=== PATIENT | female | born 1935 | race Caucasian/White ===

== ENCOUNTER → 2017-05-30 | Outpatient (REF) | payer MEDICARE ==
[~2017-05-30] MED LIST: /LOR25TA PO; /MOM400 PO; ACET650T12 PO; ALPR0.25 PO; ALPR2TAB3 PO; AMLO5TAB2 PO; B-12100T2 SL; CYMB1CAP PO; DOCU10ELUD PO; DULO1CAP2 PO; FLEXERIL PO; GABA-279 PO; HYDR-3716 PO; HYDR12CA PO; HYDR7.5T30 PO; IBUP200C10 PO; LIDO5DIS TOP; LIDO5DIS41 TD; LIDO5TD TD; LORTTAB5 PO; NAPR375T2 PO; NEUR300C PO; OMEP20CA3 PO; OMEP20TA PO; OXYC5TAB2 PO; PAXI10TA12 PO; PAXI20TA29 PO; PERC2.5T PO; PERCOCET PO; PREG100CA PO; PRIL20CA9 PO; SENO8.6T5 PO; TIZA4CAP PO; TIZA4CAP3 PO; TYLE650T30 PO; ULTR37.54 PO; ULTR50TA PO; VITA100037 PO; VITA100067 PO; VITA100L SL; VITA500T53 PO; VOLT1GEL15 TD; ZANA4CAP PO; tylen
== END ==
LOC: M LAB REF 09:13
PROVIDERS: ATTEND Physician Assistant
DX: N39.0 Urinary tract infection, site not specified (principal)

== ENCOUNTER → 2017-05-30 | Outpatient (CLI) | payer MEDICARE ==
[2017-05-30 20:47] LABS: BASO % 0.2 % (0.0-1.0); EOS % 0.4 % (0.0-3.0); LARGE UNSTAINED CELL # 0.1 K/mm3 (0.0-0.4); LARGE UNSTAINED CELL % 0.7 % (0.0-4.0); LYMPH % 12.1 % (24.0-44.0); MEAN CORPUSCULAR HEMOGLOBIN 32.1 pg (27.0-33.0); MEAN CORPUSCULAR HGB CONC 33.5 g/dl (32.0-36.5); MEAN CORPUSCULAR VOLUME 95.7 fl (80.0-96.0); MONO # 0.4 K/mm3 (0.0-0.8); MONO % 4.6 % (0.0-5.0); NEUTROPHILS # 6.2 K/mm3 (1.8-7.7); PLATELET COUNT, AUTOMATED 175 k/mm3 (150-450); RED CELL DISTRIBUTION WIDTH 12.6 % (11.5-14.5); WHITE BLOOD COUNT 7.5 K/mm3 (4.0-10.0)
[2017-05-30 21:04] LABS: ALBUMIN 3.7 GM/DL (3.2-5.2); ALBUMIN/GLOBULIN RATIO 1.06 (1.00-1.93); ALKALINE PHOSPHATASE 79 U/L (45-117); ALT/SGPT 16 U/L (12-78); ANION GAP 5 MEQ/L (8-16); AST/SGOT 9 U/L (15-37); BILIRUBIN,TOTAL 0.5 MG/DL (0.2-1.0); BLOOD UREA NITROGEN 13 MG/DL (7-18); CALCIUM LEVEL 8.8 MG/DL (8.8-10.2); CARBON DIOXIDE LEVEL 31 MEQ/L (21-32); CHLORIDE LEVEL 101 MEQ/L (98-107); CREATININE FOR GFR 0.79 MG/DL (0.55-1.02); GLOMERULAR FILTRATION RATE > 60.0 (>32); GLUCOSE, FASTING 113 MG/DL (83-110); POTASSIUM SERUM 4.4 MEQ/L (3.5-5.1); SODIUM LEVEL 137 MEQ/L (136-145); TOTAL PROTEIN 7.2 GM/DL (6.4-8.2)
== END ==
LOC: M WUC 18:50
PROVIDERS: ATTEND Physician Assistant
DX: N39.0 Urinary tract infection, site not specified (principal); R11.0 Nausea

== ENCOUNTER → 2017-05-31 | Outpatient (REF) | payer MEDICARE | LOC: M LAB REF 16:33 | PROVIDERS: ATTEND Nurse Practitioner Family | DX: N39.0 Urinary tract infection, site not specified (principal) ==

== ENCOUNTER → 2017-12-16 | Outpatient (CLI) | payer MEDICARE ==
[2017-12-16 16:48] LABS: BASO % 0.3 % (0.0-1.0); EOS # 0.1 10^3/uL (0.0-0.50); EOS % 0.6 % (0.0-3.0); HEMATOCRIT 43.8 % (36.0-47.0); HEMOGLOBIN 14.4 g/dl (12.0-16.0); IMMATURE GRANULOCYTE % 0.4 % (0-3.0); LYMPH # 1.4 10^3/uL (1.5-4.5); LYMPH % 17.5 % (24.0-44.0); MEAN CORPUSCULAR HEMOGLOBIN 31.6 pg (27.0-33.0); MEAN CORPUSCULAR HGB CONC 32.9 g/dl (32.0-36.5); MEAN CORPUSCULAR VOLUME 96.1 fl (80.0-96.0); MONO # 0.7 10^3/uL (0.0-0.8); MONO % 8.3 % (0.0-5.0); NEUTROPHILS # 5.7 10^3/uL (1.8-7.7); NEUTROPHILS % 72.9 % (36.0-66.0); PLATELET COUNT, AUTOMATED 183 10^3/uL (150-450); RED BLOOD COUNT 4.56 10^6/uL (4.00-5.40); RED CELL DISTRIBUTION WIDTH 12.5 % (11.5-14.5); WHITE BLOOD COUNT 7.9 10^3/uL (4.0-10.0)
[2017-12-16 17:11] LABS: ALBUMIN 3.9 GM/DL (3.2-5.2); ALBUMIN/GLOBULIN RATIO 1.08 (1.00-1.93); ALKALINE PHOSPHATASE 80 U/L (45-117); ALT/SGPT 12 U/L (12-78); AMYLASE 36 U/L (25-115); ANION GAP 9 MEQ/L (8-16); AST/SGOT 9 U/L (7-37); BILIRUBIN,TOTAL 0.5 MG/DL (0.2-1.0); BLOOD UREA NITROGEN 20 MG/DL (7-18); CALCIUM LEVEL 8.9 MG/DL (8.8-10.2); CARBON DIOXIDE LEVEL 28 MEQ/L (21-32); CHLORIDE LEVEL 102 MEQ/L (98-107); CREATININE FOR GFR 0.73 MG/DL (0.55-1.30); GLOMERULAR FILTRATION RATE > 60.0 (>32); GLUCOSE, FASTING 91 MG/DL (70-100); LIPASE 59 U/L (73-393); POTASSIUM SERUM 4.1 MEQ/L (3.5-5.1); SODIUM LEVEL 139 MEQ/L (136-145); TOTAL PROTEIN 7.5 GM/DL (6.4-8.2)
== END ==
LOC: M WUC 13:47
DX: R10.815 Periumbilic abdominal tenderness (principal)
CPT/HCPCS: 82150

== ENCOUNTER → 2017-12-20 | Outpatient (CLI) | payer MEDICARE ==
[~2017-12-20] MED LIST changes: -/LOR25TA PO; -/MOM400 PO; -ACET650T12 PO; -ALPR0.25 PO; -ALPR2TAB3 PO; -AMLO5TAB2 PO; -B-12100T2 SL; -CYMB1CAP PO; -DOCU10ELUD PO; -DULO1CAP2 PO; -FLEXERIL PO; -GABA-279 PO; +GASTROGRAFIN SOLUTION 30ML (Q9963) As Ordered; -HYDR-3716 PO; -HYDR12CA PO; -HYDR7.5T30 PO; -IBUP200C10 PO; +ISOVUE-370 76% 100ML VIAL (Q9967) As Ordered; -LIDO5DIS TOP; -LIDO5DIS41 TD; -LIDO5TD TD; -LORTTAB5 PO; -NAPR375T2 PO; -NEUR300C PO; -OMEP20CA3 PO; -OMEP20TA PO; -OXYC5TAB2 PO; -PAXI10TA12 PO; -PAXI20TA29 PO; -PERC2.5T PO; -PERCOCET PO; -PREG100CA PO; -PRIL20CA9 PO; -SENO8.6T5 PO; -TIZA4CAP PO; -TIZA4CAP3 PO; -TYLE650T30 PO; -ULTR37.54 PO; -ULTR50TA PO; -VITA100037 PO; -VITA100067 PO; -VITA100L SL; -VITA500T53 PO; -VOLT1GEL15 TD; -ZANA4CAP PO; -tylen
== END ==
LOC: M RAD 14:07
DX: R10.815 Periumbilic abdominal tenderness (principal); K57.30 Diverticulosis of large intestine without perforation or abscess without bleeding
CPT/HCPCS: Q9963

== ENCOUNTER → 2018-01-05 | Outpatient (CLI) | payer MEDICARE ==
[~2018-01-05] MED LIST changes: -GASTROGRAFIN SOLUTION 30ML (Q9963) As Ordered
== END ==
LOC: M RAD 07:52
DX: I73.9 Peripheral vascular disease, unspecified (principal)
CPT/HCPCS: Q9967

== ENCOUNTER → 2018-09-09 | Outpatient (CLI) | payer MEDICARE | LOC: M WUC 12:54 | DX: M53.88 Other specified dorsopathies, sacral and sacrococcygeal region (principal); M47.817 Spondylosis without myelopathy or radiculopathy, lumbosacral region; M16.11 Unilateral primary osteoarthritis, right hip; S30.0XXA Contusion of lower back and pelvis, initial encounter; S70.01XA Contusion of right hip, initial encounter; X58.XXXA Exposure to other specified factors, initial encounter; Y92.9 Unspecified place or not applicable | CPT/HCPCS: 72110 ==

== ENCOUNTER → 2019-01-30 | Outpatient (REF) | payer MEDICARE ==
[~2019-01-30] MED LIST changes: +/LOR25TA PO; +ACET650T12 PO; +ALPR0.25 PO; +ALPR2TAB3 PO; +AMLO5TAB2 PO; +AMLO5TAB6 PO; +B-12100T2 SL; +CYMB1CAP PO; +DOCU5LIQ PO; +DULO1CAP2 PO; +FLEXERIL PO; +GABA-1171 PO; +HYDR-3716 PO; +HYDR12CA PO; +HYDR7.5T30 PO; +IBUP200C25 PO; -ISOVUE-370 76% 100ML VIAL (Q9967) As Ordered; +LIDO5DIS TOP; +LIDO5DIS41 TD; +LIDO5TD TD; +LORTTAB5 PO; +MILK10SU PO; +NAPR375T2 PO; +NEUR300C PO; +OMEP20CA3 PO; +OMEP20TA PO; +OXYC5TAB2 PO; +PAXI10TA12 PO; +PAXI20TA29 PO; +PERC2.5T PO; +PERCOCET PO; +PREG100CA PO; +PRIL20CA9 PO; +SENO8.6T5 PO; +TIZA4CAP PO; +TYLE650T30 PO; +ULTR37.54 PO; +ULTR50TA PO; +VITA100037 PO; +VITA100067 PO; +VITA100L SL; +VITA500T17 PO; +VOLT1GEL15 TD; +ZANA4CAP PO; +tylen
== END ==
LOC: M LAB REF 11:27
PROVIDERS: ATTEND Physician Assistant
DX: N30.01 Acute cystitis with hematuria (principal)

== ENCOUNTER → 2019-08-12 | Outpatient (REF) | payer MEDICARE ==
[~2019-08-12] MED LIST changes: +ASPI81TA85 PO; +ATOR1TAB19 PO; +BUSP10TA PO; +CVS400CA PO; +DICY10CA13 PO; -DULO1CAP2 PO; +DULO1CAP5 PO; +NITR100C2 PO; +OLME5TAB PO; +OMEP-358 PO; -OMEP20TA PO; +RANI150T14
== END ==
LOC: M LAB REF 13:11
PROVIDERS: ATTEND Physician Assistant
DX: N39.0 Urinary tract infection, site not specified (principal)

== ENCOUNTER 2019-08-14 06:36 | Inpatient (IN) | payer MEDICARE ==
[~2019-08-14] VITALS: Ht 165.1 cm; Wt 91.8 kg
[~2019-08-14 06:36] MED LIST changes: -ASPI81TA85 PO; -ATOR1TAB19 PO; -BUSP10TA PO; -CVS400CA PO; -DICY10CA13 PO; -NITR100C2 PO; -OLME5TAB PO; -RANI150T14
[2019-08-14] MEDS ORDERED: NS 500 ML IV ONE (07:45)
[2019-08-14] MEDS ORDERED: ACETAMINOPHEN 325 MG TAB PO ONE (07:45)
[2019-08-14] MEDS ORDERED: LIDOCAINE 2% 5ML JELLY UROJET TOP ONE (08:00)
[2019-08-14 08:40] LABS: INFLUENZA A AMPLIFICATION NEGATIVE (NEGATIVE); INFLUENZA B AMPLIFICATION NEGATIVE (NEGATIVE)
--- NOTE | 2019-08-14 08:45 | REP ---
CHEST, SINGLE VIEW: Single view of the chest was performed. Comparison 12/05/2017. There is slight interstitial prominence which is chronic. No acute infiltrate is seen. The heart is normal in size. There is calcification of the thoracic aorta. The mediastinal silhouette is unchanged. There are degenerative changes of the spine. Metallic fixation is again seen in the lower cervical spine. IMPRESSION: No acute infiltrate. Electronically Signed by Cuco Bedolla MD 08/15/2019 11:39 A
[2019-08-14 08:55] LABS: BASO % 0.2 % (0.0-1.0); EOS # 0.3 10^3/uL (0.0-0.5); EOS % 1.5 % (0.0-3.0); HEMATOCRIT 40.5 % (36.0-47.0); HEMOGLOBIN 13.3 g/dl (12.0-15.5); LYMPH # 0.8 10^3/uL (1.5-5.0); LYMPH % 4.2 % (24.0-44.0); MEAN CORPUSCULAR HEMOGLOBIN 33.1 pg (27.0-33.0); MEAN CORPUSCULAR HGB CONC 32.8 g/dl (32.0-36.5); MEAN CORPUSCULAR VOLUME 100.7 fl (80.0-96.0); MONO # 1.2 10^3/uL (0.0-0.8); MONO % 6.4 % (0.0-5.0); NEUTROPHILS # 16.7 10^3/uL (1.5-8.5); NEUTROPHILS % 87.1 % (36.0-66.0); PLATELET COUNT, AUTOMATED 156 10^3/uL (150-450); RED BLOOD COUNT 4.02 10^6/uL (4.00-5.40); WHITE BLOOD COUNT 19.2 10^3/uL (4.0-10.0)
[2019-08-14] MEDS ORDERED: NITR100C2 PO (09:16)
[2019-08-14] MEDS ORDERED: OLME5TAB PO (09:16)
[2019-08-14] MEDS ORDERED: ATOR1TAB19 PO (09:16)
[2019-08-14] MEDS ORDERED: RANI150T14 (09:16)
[2019-08-14] MEDS ORDERED: DICY10CA13 PO (09:16)
[2019-08-14] MEDS ORDERED: BUSP10TA PO (09:16)
[2019-08-14] MEDS ORDERED: ASPI81TA85 PO (09:16)
[2019-08-14] MEDS ORDERED: CVS400CA PO (09:16)
[2019-08-14 09:24] LABS: ALBUMIN 3.5 GM/DL (3.2-5.2); ALT/SGPT 11 U/L (12-78); BILIRUBIN,DIRECT 0.2 MG/DL (0.0-0.2); BILIRUBIN,TOTAL 0.6 MG/DL (0.2-1.0); BLOOD UREA NITROGEN 16 MG/DL (7-18); CALCIUM LEVEL 8.9 MG/DL (8.8-10.2); CARBON DIOXIDE LEVEL 28 MEQ/L (21-32); CHLORIDE LEVEL 106 MEQ/L (98-107); CK-MB VALUE MASS < 1.0 NG/ML (<3.6); CPK CREATINE PHOSPHOKINASE 35 U/L (26-192); GLOMERULAR FILTRATION RATE > 60.0 (>32); GLUCOSE, FASTING 119 MG/DL (70-100); LIPASE 31 U/L (73-393); MB/CK RELATIVE INDEX 2.86 (< OR =4); SODIUM LEVEL 140 MEQ/L (136-145); TOTAL PROTEIN 7.1 GM/DL (6.4-8.2); TROPONIN I < 0.02 NG/ML (< 0.10)
[2019-08-14] MEDS ORDERED: MEROPENEM INJ 1 GM in IV 1 EA IV ONE (09:30)
[2019-08-14] MEDS ORDERED: ISOVUE-370 76% 100ML VIAL (Q9967) As Ordered ONE (09:41)
--- NOTE | 2019-08-14 10:29 | ECGEPIP ---
[facility] - ED Test Date: 2019-08-14 Pat Name: GABINO RUEDA Department: Room: - Gender: Female Clinical Resource Director: : 1935 Requested By: Reese Wallace Order Number: [id number] Reading MD: Lili Wells Measurements Intervals [place] Rate: 105 P: -69 MD: 157 QRS: 77 QRSD: 89 T: -51 QT: 317 QTc: 420 Interpretive Statements ECTOPIC ATRIAL TACHYCARDIA WITH OCCASIONAL SUPRAVENTRICULAR PREMATURE COMPLEXES ST DEVIATION AND MODERATE T-WAVE ABNORMALITY, CONSIDER ISCHEMIA Electronically Signed on 08-14-2019 10:28:45 EDT by Lili Wells
--- NOTE | 2019-08-14 10:41 | REP ---
CT ABDOMEN AND PELVIS WITH IV CONTRAST: TECHNIQUE: Axial contrast enhanced images from the lung bases to the pubic symphysis using 100 mL Isovue 370 intravenous contrast material with multiplanar reformations. Liver, spleen, adrenals, pancreas and kidneys are unremarkable. There is no hydronephrosis. The patient has had a prior cholecystectomy. There is not significant biliary dilatation. There is moderate atherosclerotic calcification of the abdominal aorta without aneurysm. There is no adenopathy. There is no free air or free fluid. There is no bowel wall thickening. The appendix is normal. There is mild sigmoid diverticulosis without acute diverticulitis. No pelvic mass is seen. Urinary bladder is not well distended and not well evaluated. There is a small umbilical hernia containing fat. IMPRESSION: No acute abnormality is detected. Electronically Signed by Cuco Bedolla MD 08/15/2019 11:43 A
--- NOTE | 2019-08-14 10:58 | REP ---
CT ANGIOGRAM CHEST: TECHNIQUE: Axial contrast enhanced images from the thoracic inlet to the upper abdomen using 100 mL Isovue 370 intravenous contrast material with multiplanar reformations. There is no evidence of pulmonary embolism or aortic dissection. Moderate atherosclerotic calcifications are seen of the thoracic aorta, which is not dilated. There is no evidence of mediastinal, hilar, or chest wall lymphadenopathy. Heart is normal in size. There is no pleural or pericardial effusion. There are mild bibasilar fibroatelectatic changes without consolidating infiltrate. There are diffuse degenerative changes of the spine. IMPRESSION: Mild bibasilar fibroatelectatic changes. No other acute finding. Electronically Signed by Cuco Bedolla MD 08/15/2019 11:45 A
[2019-08-14] MEDS ORDERED: NS 1,000 ML IV ONE (11:00)
[2019-08-14] MEDS ORDERED: MOM 30ML SUSPENSION UDC PO PRN (11:45)
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
[2019-08-14 15:44] VITALS: BP 136/66
[2019-08-14] MEDS: HEPARIN SOD (PORCINE) 5000 UNITS/ML VIAL SC SCH ×2 (18:40→22:17)
[2019-08-14] MEDS: DOCUSATE SODIUM 100 MG CAP PO SCH ×2 (18:40→22:17)
[2019-08-14] MEDS: MEROPENEM INJ 1 GM in IV 1 EA IV SCH (18:41)
[2019-08-14 22:00] VITALS: BP 144/89
[2019-08-14] MEDS: ACETAMINOPHEN TAB 650MG DOSE (2X325MG) PO PRN (22:21)
--- NOTE | 2019-08-15 00:53 | ECGEPIP ---
[facility] - ED Test Date: 2019-08-14 Pat Name: GABINO RUEDA Department: Room: - Gender: Female Buttermaker: TC : 1935 Requested By: Reese Wallace Order Number: [id number] Reading MD: Murali Gonzalez Measurements Intervals [place] Rate: 68 P: 91 DE: 240 QRS: 73 QRSD: 87 T: 68 QT: 380 QTc: 406 Interpretive Statements SINUS RHYTHM WITH SINUS ARRHYTHMIA LEFT ATRIAL ENLARGEMENT NSTTW ABNORMALITIES RATE CHANGE COMPARED TO 08/14/19 Electronically Signed on 08-15-2019 0:52:42 EDT by Murali Gonzalez
[2019-08-15] MEDS: HEPARIN SOD (PORCINE) 5000 UNITS/ML VIAL SC SCH ×3 (05:41→21:10)
[2019-08-15] MEDS: MEROPENEM INJ 1 GM in IV 1 EA IV SCH ×2 (05:41→18:25)
[2019-08-15 06:00] VITALS: BP 140/93
[2019-08-15 07:00] LABS: ALBUMIN 2.7 GM/DL (3.2-5.2); ALT/SGPT 14 U/L (12-78); BILIRUBIN,TOTAL 0.2 MG/DL (0.2-1.0); BLOOD UREA NITROGEN 16 MG/DL (7-18); CALCIUM LEVEL 8.5 MG/DL (8.8-10.2); CARBON DIOXIDE LEVEL 28 MEQ/L (21-32); CHLORIDE LEVEL 108 MEQ/L (98-107); CREATININE FOR GFR 0.81 MG/DL (0.55-1.30); GLOMERULAR FILTRATION RATE > 60.0 (>32); GLUCOSE, FASTING 128 MG/DL (70-100); POTASSIUM SERUM 4.1 MEQ/L (3.5-5.1); SODIUM LEVEL 140 MEQ/L (136-145); TOTAL PROTEIN 6.4 GM/DL (6.4-8.2)
[2019-08-15] MEDS: busPIRone 10 MG TAB PO SCH ×4 (09:00→21:10)
[2019-08-15] MEDS ORDERED: ALPR2TAB3 PO (10:29)
[2019-08-15] MEDS: DOCUSATE SODIUM 100 MG CAP PO SCH ×2 (10:54→21:10)
[2019-08-15] MEDS: ATORVASTATIN 10 MG TAB PO SCH (10:54)
[2019-08-15] MEDS: CYANOCOBALAMIN 500 MCG TAB PO SCH (10:54)
--- NOTE | 2019-08-15 12:08 | IPNPDOC ---
Text Note Date of Service The patient was seen on 08/15/19. NOTE Patient seen and examined this morning by me. Family at the bedside. No new complaints. GEN: 79yoF, appears stated age. Well-nourished, well developed. Emotionally labile on exam. Alert and oriented x 3. Pleasant, interactive. HEENT: Normocephalic, atraumatic. Pupils are equal, round, and reactive to light. Extraocular movements are intact. No nystagmus appreciated. Sclera are nonicteric. Conjunctiva without injection. Nose midline. Moist mucous membranes. Upper dentures in place. Pharynx pink and moist, no cobblestoning. Neck supple, trachea midline. CHEST: Regular rate and rhythm, +S1, +S2 LUNGS: Clear to auscultation bilaterally. No wheezes, rales, or rhonchi. B reathing appears symmetric and easy. Patient is speaking in full sentences. ABD: Round, soft, non-tender, non-distended. +Bowel sounds throughout. No rebound or guarding. No costovertebral angle tenderness. Slight suprapubic tenderness EXT: Pulses 2+ bilaterally dorsalis pedis and radial. Right distal lower extremity obviously larger than left. Patient notes this is a chronic condition from a remote injury. She denies any change in this. There is no erythema, calor, or calf tenderness bilaterally. SKIN: [place], dry, warm. Capillary refill <2sec. No rashes. NEURO: Alert and oriented x 3. Sensation intact and equal BL in upper and lower extremities. Strength is 3/5 bilaterally in lower extremities. Exam is limited by pain. Cranial nerves III through XII are grossly intact. Assessment and plan 79-year-old female with a past medical history significant for Lumbar radiculopathy, Lumbar spinal stenosis, Depression, Anxiety, HTN presenting with fatigue and possible UTI 1. UTI. The patient does have some suprapubic tenderness and still complains of some dysuria. Though the UA is positive, but she has been on antibiotics. We'll continue her on meropenem . Urine culture has been ordered. Blood cultures are also has been ordered. There is slight WBC elevation along with tachycardia . We will continue IV fluids normal saline at [address] scan of the abdomen, pelvis and chest was done which did not show any acute pathology. 2. Hypertension. Continue with Norvasc with hold parameters. 3. Anxiety/depression. Continue with Paxil and as needed Xanax. 4. DVT prophylaxis in the form of Lovenox. 5. Obesity complicates care. BMI 31.23kg/m^2. 6. Chronic back pain. The home medication not contraindicated Also, as the patient was having some PVCs and a dropped beat. For that reason, a 2-D echo will be done to rule out any structural heart disease. Patient will be kept on telemetry monitoring. Disposition Likely home in the next 24-48 hours VS,Fishbone, I+O VS, Fishbone, I+O Laboratory Tests 08/15/19 06:11 Vital Signs Date Time Temp Pulse Resp B/P (MAP) Pulse Ox O2 Delivery O2 Flow Rate FiO2 08/15/19 06:00 98.1 89 18 140/93 (109) 99 08/14/19 15:44 Room Air I&O- Last 24 Hours up to 6 AM 08/15/19 06:00 Intake Total 1700 ml Balance 1700 ml MALI SOSA MD Aug 15, 2019 12:08
[2019-08-15 13:07] LABS: BASO % 0.3 % (0.0-1.0); EOS # 0.4 10^3/uL (0.0-0.5); EOS % 4.8 % (0.0-3.0); HEMATOCRIT 37.2 % (36.0-47.0); HEMOGLOBIN 12.1 g/dl (12.0-15.5); LYMPH # 1.1 10^3/uL (1.5-5.0); MEAN CORPUSCULAR HEMOGLOBIN 32.9 pg (27.0-33.0); MEAN CORPUSCULAR HGB CONC 32.5 g/dl (32.0-36.5); MEAN CORPUSCULAR VOLUME 101.1 fl (80.0-96.0); MONO # 0.8 10^3/uL (0.0-0.8); MONO % 10.2 % (0.0-5.0); NEUTROPHILS # 5.4 10^3/uL (1.5-8.5); NEUTROPHILS % 70.2 % (36.0-66.0); PLATELET COUNT, AUTOMATED 145 10^3/uL (150-450); RED BLOOD COUNT 3.68 10^6/uL (4.00-5.40); WHITE BLOOD COUNT 7.6 10^3/uL (4.0-10.0)
[2019-08-15 14:00] VITALS: BP 136/70
--- NOTE | 2019-08-15 18:18 | ECHO ---
DATE OF PROCEDURE: 08/15/2019 AGE: 83 GENDER: Female HEIGHT: 65 inches WEIGHT: 202 pounds BODY SURFACE AREA: 1.99 m2 PATIENT LOCATION: Inpatient, [address] [place] [address], room 4209 REFERRING PHYSICIAN: Doc Jay MD INDICATION: Abnormal EKG. 2-D MEASUREMENTS: RV: 3.0 cm LV: 4.1 cm Septum: 1.1 cm Posterior wall: 1.1 cm Aortic root: 2.7 cm LA: 3.6 cm LVEF: 80% DOPPLER MEASUREMENTS: AV: 1.74 m/s LVOT: 0.85 m/s LVOT diameter: 2.0 cm MV-E: 86, A: 111, EA ratio: 0.8 Early mitral deceleration time: 268 ms E prime: 6.5, A prime: 10.2, E/E prime ratio: 13.2 PCWP: 17.9 mmHg PV: 1.0 m/s Pulmonary artery acceleration time: 155 ms PASP: 10 mmHg IVC: 1.8 cm COMMENTS Normal sinus rhythm with first-degree AV block. Technically challenging study in light of the patient's body habitus but diagnostically useful information was still obtained. M-mode and two-dimensional echocardiography was performed with pulsed, continuous wave, color flow and tissue Doppler studies. Normal left ventricular size and wall thickness with hyperkinetic wall motion. Normal left atrial size with grade 1 LV diastolic dysfunction and mildly elevated estimated mean left atrial pressure. Normal right heart chamber sizes and motion with an estimated pulmonary arterial pressure. Normal IVC size and collapse against an elevated central venous pressure. Mild aortic valvular sclerosis without functional valvular abnormality. Normal aortic dimensions. Slight mitral annular thickening but normal leaflet thickness and excursion with no posterior systolic buckling and only trace mitral insufficiency. Normal appearing tricuspid valve with trace insufficiency. No apparent intracardiac mass or pericardial effusion. The above test findings would not be considered significantly outside normal limits for her age.
[2019-08-15 22:00] VITALS: BP 146/83
[2019-08-16] MEDS: HEPARIN SOD (PORCINE) 5000 UNITS/ML VIAL SC SCH ×3 (05:36→21:03)
[2019-08-16] MEDS: MAALOX 30 ML SUSP *UDC PO PRN (05:36)
[2019-08-16] MEDS: MEROPENEM INJ 1 GM in IV 1 EA IV SCH ×2 (05:36→17:14)
[2019-08-16] MEDS: ACETAMINOPHEN TAB 650MG DOSE (2X325MG) PO PRN (05:50)
[2019-08-16 06:54] LABS: HEMOGLOBIN 11.6 g/dl (12.0-15.5); MEAN CORPUSCULAR HGB CONC 32.2 g/dl (32.0-36.5); MEAN CORPUSCULAR VOLUME 99.4 fl (80.0-96.0); PLATELET COUNT, AUTOMATED 165 10^3/uL (150-450); RED BLOOD COUNT 3.62 10^6/uL (4.00-5.40); WHITE BLOOD COUNT 6.3 10^3/uL (4.0-10.0)
[2019-08-16 07:15] LABS: BLOOD UREA NITROGEN 16 MG/DL (7-18); CALCIUM LEVEL 8.9 MG/DL (8.8-10.2); CARBON DIOXIDE LEVEL 29 MEQ/L (21-32); CHLORIDE LEVEL 106 MEQ/L (98-107); CREATININE FOR GFR 0.74 MG/DL (0.55-1.30); GLOMERULAR FILTRATION RATE > 60.0 (>32); GLUCOSE, FASTING 113 MG/DL (70-100); POTASSIUM SERUM 4.1 MEQ/L (3.5-5.1); SODIUM LEVEL 141 MEQ/L (136-145)
[2019-08-16] MEDS: busPIRone 10 MG TAB PO SCH ×3 (09:06→21:03)
[2019-08-16] MEDS: ATORVASTATIN 10 MG TAB PO SCH (09:06)
[2019-08-16] MEDS: CYANOCOBALAMIN 500 MCG TAB PO SCH (09:06)
[2019-08-16] MEDS: DOCUSATE SODIUM 100 MG CAP PO SCH ×2 (09:06→21:03)
[2019-08-16] MEDS: ONDANSETRON 4MG/2ML VIAL (J2405) IV PRN (09:56)
[2019-08-16] MEDS ORDERED: LACTULOSE 20 GM/30 ML SYRUP UD PO ONE (10:00)
--- NOTE | 2019-08-16 12:22 | IPNPDOC ---
Text Note Date of Service The patient was seen on 08/16/19. NOTE Patient seen and examined this morning by me. Family at the bedside. No new complaints. GEN: 79yoF, appears stated age. Well-nourished, well developed. Emotionally labile on exam. Alert and oriented x 3. Pleasant, interactive. HEENT: Normocephalic, atraumatic. Pupils are equal, round, and reactive to light. Extraocular movements are intact. No nystagmus appreciated. Sclera are nonicteric. Conjunctiva without injection. Nose midline. Moist mucous membranes. Upper dentures in place. Pharynx pink and moist, no cobblestoning. Neck supple, trachea midline. CHEST: Regular rate and rhythm, +S1, +S2 LUNGS: Clear to auscultation bilaterally. No wheezes, rales, or rhonchi. B reathing appears symmetric and easy. Patient is speaking in full sentences. ABD: Round, soft, non-tender, non-distended. +Bowel sounds throughout. No rebound or guarding. No costovertebral angle tenderness. Slight suprapubic tenderness EXT: Pulses 2+ bilaterally dorsalis pedis and radial. Right distal lower extremity obviously larger than left. Patient notes this is a chronic condition from a remote injury. She denies any change in this. There is no erythema, calor, or calf tenderness bilaterally. SKIN: [place], dry, warm. Capillary refill <2sec. No rashes. NEURO: Alert and oriented x 3. Sensation intact and equal BL in upper and lower extremities. Strength is 4/5 bilaterally in lower extremities. Exam is limited by pain. Cranial nerves III through XII are grossly intact. Assessment and plan 79-year-old female with a past medical history significant for Lumbar radiculopathy, Lumbar spinal stenosis, Depression, Anxiety, HTN presenting with fatigue and possible UTI 1. UTI. The patient does have some suprapubic tenderness and still complains of some dysuria. Though the UA is positive, but she has been on antibiotics. We'll continue her on meropenem . Urine culture has been ordered so far negative, but the patient was already taking and the medics by her to the culture. Blood cultu res are also has been ordered also negative. There is slight WBC elevation along with tachycardia, which has resolved. We will discontinue IV fluids CT scan of the abdomen, pelvis and chest was done which did not show any acute pathology. 2. Hypertension. Continue with Norvasc with hold parameters. 3. Anxiety/depression. Continue with Paxil and as needed Xanax. 4. 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 Asymptomatic. No intervention needed at this time. Patient is a 1 week. No need of any diuretics 5. Obesity complicates care. BMI 31.23kg/m^2. 6. Chronic back pain. The home medication not contraindicated Disposition Likely home in the next 24-48 hours VS,Fishbone, I+O VS, Fishbone, I+O Laboratory Tests 08/15/19 12:23 08/16/19 06:12 Vital Signs Date Time Temp Pulse Resp B/P (MAP) Pulse Ox O2 Delivery O2 Flow Rate FiO2 08/15/19 22:00 98.0 79 17 146/83 (104) 98 08/14/19 15:44 Room Air I&O- Last 24 Hours up to 6 AM 08/16/19 06:00 Intake Total 890 ml Balance 890 ml MALI SOSA MD Aug 16, 2019 12:22
[2019-08-16] MEDS: PHENAZOPYRIDINE 100 MG TAB PO SCH ×2 (13:57→21:03)
[2019-08-16 14:00] VITALS: BP 115/61
[2019-08-16 22:00] VITALS: BP 141/65
[2019-08-17] MEDS: HEPARIN SOD (PORCINE) 5000 UNITS/ML VIAL SC SCH ×3 (05:48→21:03)
[2019-08-17] MEDS: MAALOX 30 ML SUSP *UDC PO PRN (05:48)
[2019-08-17] MEDS: MEROPENEM INJ 1 GM in IV 1 EA IV SCH ×2 (05:49→18:19)
[2019-08-17 06:00] VITALS: BP 113/71
[2019-08-17 06:11] LABS: HEMATOCRIT 36.3 % (36.0-47.0); HEMOGLOBIN 11.8 g/dl (12.0-15.5); MEAN CORPUSCULAR HEMOGLOBIN 33.1 pg (27.0-33.0); MEAN CORPUSCULAR HGB CONC 32.5 g/dl (32.0-36.5); PLATELET COUNT, AUTOMATED 173 10^3/uL (150-450); RED BLOOD COUNT 3.56 10^6/uL (4.00-5.40); WHITE BLOOD COUNT 5.8 10^3/uL (4.0-10.0)
[2019-08-17 06:33] LABS: BLOOD UREA NITROGEN 13 MG/DL (7-18); CARBON DIOXIDE LEVEL 31 MEQ/L (21-32); CHLORIDE LEVEL 104 MEQ/L (98-107); CREATININE FOR GFR 0.75 MG/DL (0.55-1.30); GLOMERULAR FILTRATION RATE > 60.0 (>32); GLUCOSE, FASTING 96 MG/DL (70-100); POTASSIUM SERUM 4.3 MEQ/L (3.5-5.1); SODIUM LEVEL 139 MEQ/L (136-145)
[2019-08-17] MEDS: DOCUSATE SODIUM 100 MG CAP PO SCH ×2 (08:35→20:59)
[2019-08-17] MEDS: ATORVASTATIN 10 MG TAB PO SCH (08:35)
[2019-08-17] MEDS: PHENAZOPYRIDINE 100 MG TAB PO SCH ×2 (08:35→20:59)
[2019-08-17] MEDS: busPIRone 10 MG TAB PO SCH ×3 (08:35→20:59)
[2019-08-17] MEDS: CYANOCOBALAMIN 500 MCG TAB PO SCH (08:35)
[2019-08-17 09:30] LABS: VITAMIN B12 LEVEL 329 PG/ML (247-911)
--- NOTE | 2019-08-17 10:31 | IPNPDOC ---
Text Note Date of Service The patient was seen on 08/17/19. NOTE Patient seen and examined this morning by me. Family at the bedside. No new complaints. GEN: 79yoF, appears stated age. Well-nourished, well developed. Emotionally labile on exam. Alert and oriented x 3. Pleasant, interactive. HEENT: Normocephalic, atraumatic. Pupils are equal, round, and reactive to light. Extraocular movements are intact. No nystagmus appreciated. Sclera are nonicteric. Conjunctiva without injection. Nose midline. Moist mucous membranes. Upper dentures in place. Pharynx pink and moist, no cobblestoning. Neck supple, trachea midline. CHEST: Regular rate and rhythm, +S1, +S2 LUNGS: Clear to auscultation bilaterally. No wheezes, rales, or rhonchi. B reathing appears symmetric and easy. Patient is speaking in full sentences. ABD: Round, soft, non-tender, non-distended. +Bowel sounds throughout. No rebound or guarding. No costovertebral angle tenderness. Slight suprapubic tenderness EXT: Pulses 2+ bilaterally dorsalis pedis and radial. Right distal lower extremity obviously larger than left. Patient notes this is a chronic condition from a remote injury. She denies any change in this. There is no erythema, calor, or calf tenderness bilaterally. SKIN: [place], dry, warm. Capillary refill <2sec. No rashes. NEURO: Alert and oriented x 3. Sensation intact and equal BL in upper and lower extremities. Strength is 4/5 bilaterally in lower extremities. Exam is limited by pain. Cranial nerves III through XII are grossly intact. Assessment and plan 79-year-old female with a past medical history significant for Lumbar radiculopathy, Lumbar spinal stenosis, Depression, Anxiety, HTN presenting with fatigue and possible UTI 1. UTI. The patient does have some suprapubic tenderness and still complains of some dysuria, which is improving. Though the UA is positive, but she has been on antibiotics. We'll continue her on meropenem . Urine culture has been ordered so far negative, but the patient was already taking and the medics by her to the culture. Blood cultures are also has been ordered also negative. There is slight WBC elevation along with tachycardia, which has resolved. CT scan of the abdomen, pelvis and chest was done which did not show any acute pathology. 2. Hypertension. Continue holding the anterior evidence of medications. As the patient's blood pressure is okay 3. Anxiety/depression. Continue with Paxil and as needed Xanax. 4. 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 Asymptomatic. No intervention needed at this time. Patient is a 1 week. No need of any diuretics 5. Obesity complicates care. BMI 31.23kg/m^2. 6. Chronic back pain. The home medication not contraindicated Disposition Likely home in the next 24-48 hours VS,Fishbone, I+O VS, Fishbone, I+O Laboratory Tests 08/17/19 05:45 Vital Signs Date Time Temp Pulse Resp B/P (MAP) Pulse Ox O2 Delivery O2 Flow Rate FiO2 08/17/19 06:00 98.4 75 20 113/71 (85) 93 Room Air I&O- Last 24 Hours up to 6 AM 08/17/19 06:00 Intake Total 2490 ml Balance 2490 ml MALI SOSA MD Aug 17, 2019 10:31
[2019-08-17 14:00] VITALS: BP 103/68
[2019-08-17] MEDS: ONDANSETRON 4MG/2ML VIAL (J2405) IV PRN (15:58)
[2019-08-17] MEDS: ACETAMINOPHEN TAB 650MG DOSE (2X325MG) PO PRN (20:59)
[2019-08-17 22:00] VITALS: BP 111/68
[2019-08-18 05:57] LABS: HEMATOCRIT 37.1 % (36.0-47.0); HEMOGLOBIN 11.7 g/dl (12.0-15.5); MEAN CORPUSCULAR HEMOGLOBIN 31.8 pg (27.0-33.0); MEAN CORPUSCULAR HGB CONC 31.5 g/dl (32.0-36.5); MEAN CORPUSCULAR VOLUME 100.8 fl (80.0-96.0); PLATELET COUNT, AUTOMATED 183 10^3/uL (150-450); RED BLOOD COUNT 3.68 10^6/uL (4.00-5.40); WHITE BLOOD COUNT 5.8 10^3/uL (4.0-10.0)
[2019-08-18] MEDS: HEPARIN SOD (PORCINE) 5000 UNITS/ML VIAL SC SCH ×2 (05:58→14:00)
[2019-08-18] MEDS: MEROPENEM INJ 1 GM in IV 1 EA IV SCH (05:58)
[2019-08-18 06:00] VITALS: BP 116/70
[2019-08-18 06:18] LABS: BLOOD UREA NITROGEN 16 MG/DL (7-18); CALCIUM LEVEL 8.6 MG/DL (8.8-10.2); CARBON DIOXIDE LEVEL 32 MEQ/L (21-32); CHLORIDE LEVEL 103 MEQ/L (98-107); CREATININE FOR GFR 0.76 MG/DL (0.55-1.30); GLOMERULAR FILTRATION RATE > 60.0 (>32); GLUCOSE, FASTING 94 MG/DL (70-100); POTASSIUM SERUM 4.5 MEQ/L (3.5-5.1); SODIUM LEVEL 138 MEQ/L (136-145)
[2019-08-18] MEDS: ATORVASTATIN 10 MG TAB PO SCH (08:21)
[2019-08-18] MEDS: busPIRone 10 MG TAB PO SCH (08:21)
[2019-08-18] MEDS: CYANOCOBALAMIN 500 MCG TAB PO SCH (08:21)
[2019-08-18] MEDS: DOCUSATE SODIUM 100 MG CAP PO SCH (08:21)
[2019-08-18] MEDS ORDERED: PYRI1TAB5 PO (11:05)
--- NOTE | 2019-08-18 11:09 | DS.PDOC ---
Discharge Summary General Date of Admission Aug 16, 2019 at 14:18 Date of Discharge 08/18/19 Discharge Summary Chief complaints. Fatigue, UTI Final diagnoses UTI Cystitis First-degree AV block History of present illness and Hospital course 79-year-old female with a past medical history significant for Lumbar radiculopathy, Lumbar spinal stenosis, Depression, Anxiety, HTN presenting with fatigue and possible UTI . For her UTI. The patient did have some suprapubic tenderness and still complains of some dysuria, which is improving. Though the UA is positive, but she has been on antibiotics. Finished 5 days of meropenem . Urine culture has been negative, Blood cultures are also has been ordered also negative. There was slight WBC elevation along with tachycardia, which has resolved. CT scan of the abdomen, pelvis and chest was done which did not show any acute pathology.For her First-degree AV block with past systolic grade 1 dysfunction. Asymptomatic. No intervention needed at this time. Patient is euvolumic. No need of any diuretics. She is optimized for discharge GEN: 79yoF, appears stated age. Well-nourished, well developed. Emotionally labile on exam. Alert and oriented x 3. Pleasant, interactive. HEENT: Normocephalic, atraumatic. Pupils are equal, round, and reactive to ligh t. Extraocular movements are intact. No nystagmus appreciated. Sclera are nonicteric. Conjunctiva without injection. Nose midline. Moist mucous membranes. Upper dentures in place. Pharynx pink and moist, no cobblestoning. Neck supple, trachea midline. CHEST: Regular rate and rhythm, +S1, +S2 LUNGS: Clear to auscultation bilaterally. No wheezes, rales, or rhonchi. Breathing appears symmetric and easy. Patient is speaking in full sentences. ABD: Round, soft, non-tender, non-distended. +Bowel sounds throughout. No rebound or guarding. No costovertebral angle tenderness. EXT: Pulses 2+ bilaterally dorsalis pedis and radial. Right distal lower extremity obviously larger than left. Patient notes this is a chronic condition from a remote injury. She denies any change in this. There is no erythema, calor, or calf tenderness bilaterally. SKIN: [place], dry, warm. Capillary refill <2sec. No rashes. NEURO: Alert and oriented x 3. Sensation intact and equal BL in upper and lower extremities. Strength is 4/5 bilaterally in lower extremities. Exam is limited by pain. Cranial nerves III through XII are grossly intact. Medications. As per discharge reconciliation medication list Activity as tolerated Diet. 2 g sodium diet Follow-up appointments. PCP in 1 week Condition on discharge. Patient is medically optimized for discharge Discharge disposition: Home Total time spent on this discharge including coordination of care, review of chart documentation and actual contact is around 35 minutes Vital Signs/I&Os Vital Signs Date Time Temp Pulse Resp B/P (MAP) Pulse Ox O2 Delivery O2 Flow Rate FiO2 08/18/19 06:00 98.1 69 17 116/70 (85) 97 Room Air I&O- Last 24 Hours up to 6 AM 08/18/19 06:00 Intake Total 1090 ml Balance 1090 ml Laboratory Data Labs 24H Laboratory Tests 2 08/18/19 05:34: Nucleated Red Blood Cells % (auto) 0.0, Anion Gap 3L, Glomerular Filtration Rate > 60.0, Calcium Level 8.6L CBC/BMP Laboratory Tests 08/18/19 05:34 Microbiology Microbiology 08/14/19 Blood Culture - Preliminary, Resulted No Growth after 72 hours. All specime... 08/14/19 Urine Culture - Final, Complete 08/14/19 Blood Culture - Preliminary, Resulted No Growth after 72 hours. All specime... Discharge Medications Scheduled Aspirin (Aspir 81) 81 Mg Tablet.dr, 1 TAB PO DAILY, (Reported) Atorvastatin Calcium (Atorvastatin Calcium) 10 Mg Tablet, 10 MG PO DAILY, (Reported) Buspirone HCl (Buspirone HCl) 10 Mg Tablet, 10 MG PO TID, (Reported) Cyanocobalamin (Vitamin B-12) (Vitamin B-12) 500 Mcg Tab, 500 MCG PO DAILY, (Reported) Olmesartan Medoxomil (Olmesartan Medoxomil) 5 Mg Tablet, 5 MG PO DAILY, (Reported) Phenazopyridine HCl (Pyridium) 200 Mg Tablet, 200 MG PO BID for urinary discomfort Scheduled PRN Dicyclomine HCl (Dicyclomine HCl) 10 Mg Capsule, 10 MG PO QID PRN for ABDOMINAL PAIN, (Reported) Allergies Coded Allergies: Penicillins (Verified Allergy, Intermediate, HIVES, 08/14/19) MALI SOSA MD Aug 18, 2019 11:09
[2019-08-18 14:00] VITALS: BP 126/69
== END 2019-08-18 14:55 | disposition home or self-care (01) | DRG 690 ==
LOC: M ED 06:36 → M ED INP 06:37 → M MSPAV 15:26 → OBSVTOIN 08-16 14:18
PROVIDERS: ADMIT Internal Medicine; ATTEND Internal Medicine
DX: N39.0 Urinary tract infection, site not specified (principal); I44.0 Atrioventricular block, first degree; F41.9 Anxiety disorder, unspecified; F32.9 Major depressive disorder, single episode, unspecified; I10 Essential (primary) hypertension; Z79.82 Long term (current) use of aspirin; Z79.899 Other long term (current) drug therapy; Z88.0 Allergy status to penicillin; M48.061 Spinal stenosis, lumbar region without neurogenic claudication; E66.9 Obesity, unspecified; Z68.31 Body mass index [BMI] 31.0-31.9, adult

== ENCOUNTER 2019-08-27 13:03 | Emergency (ER) | payer MEDICARE ==
[~2019-08-27] VITALS: Ht 165.1 cm; Wt 90.5 kg
[~2019-08-27 13:03] MED LIST changes: +ASPI81TA85 PO; +ATOR1TAB19 PO; +BUSP10TA PO; +CVS400CA PO; +DICY10CA13 PO; +NITR100C2 PO; +OLME5TAB PO; +PYRI1TAB5 PO; +RANI150T14
[2019-08-27 14:33] LABS: BASO % 0.3 % (0.0-1.0); EOS # 0.1 10^3/uL (0.0-0.5); EOS % 1.1 % (0.0-3.0); HEMATOCRIT 41.3 % (36.0-47.0); HEMOGLOBIN 13.1 g/dl (12.0-15.5); LYMPH # 1.2 10^3/uL (1.5-5.0); LYMPH % 19.4 % (24.0-44.0); MEAN CORPUSCULAR HEMOGLOBIN 32.3 pg (27.0-33.0); MEAN CORPUSCULAR HGB CONC 31.7 g/dl (32.0-36.5); MEAN CORPUSCULAR VOLUME 101.7 fl (80.0-96.0); MONO # 0.5 10^3/uL (0.0-0.8); MONO % 7.8 % (0.0-5.0); NEUTROPHILS # 4.5 10^3/uL (1.5-8.5); NEUTROPHILS % 71.1 % (36.0-66.0); PLATELET COUNT, AUTOMATED 204 10^3/uL (150-450); RED BLOOD COUNT 4.06 10^6/uL (4.00-5.40); WHITE BLOOD COUNT 6.3 10^3/uL (4.0-10.0)
[2019-08-27 14:53] LABS: BLOOD UREA NITROGEN 18 MG/DL (7-18); CALCIUM LEVEL 9.1 MG/DL (8.8-10.2); CARBON DIOXIDE LEVEL 29 MEQ/L (21-32); CHLORIDE LEVEL 106 MEQ/L (98-107); CREATININE FOR GFR 0.78 MG/DL (0.55-1.30); GLOMERULAR FILTRATION RATE > 60.0 (>32); GLUCOSE, FASTING 111 MG/DL (70-100); POTASSIUM SERUM 4.1 MEQ/L (3.5-5.1); SODIUM LEVEL 142 MEQ/L (136-145)
--- NOTE | 2019-08-27 15:05 | REP ---
Abdomen series: Three views. History: Constipation, left-sided abdominal pain. Comparison study: August 14, 2019. Findings: The patient is status post cervical discectomy and fusion plating. There are degenerative changes in the thoracic spine and aorta. The lungs are symmetrically aerated and clear on chest x-ray. No free subdiaphragmatic air or infiltrate is seen. Supine and erect views of the abdomen show clips in right upper quadrant consistent with previous cholecystectomy. There are degenerative spondylosis changes in the lumbar spine. The bowel gas pattern is normal. Vascular calcifications noted. Psoas margins are symmetric. There are tendon insertion site spurs at the greater trochanters bilaterally. Impression: Normal bowel gas pattern. Vascular calcification. Right upper quadrant clips. No acute abnormality. Electronically Signed by Claude Lloyd MD 08/27/2019 06:50 P
[2019-08-27] MEDS ORDERED: DULC10SU2 PR (15:51)
[2019-08-27] MEDS ORDERED: MIRA3350 PO (15:51)
[2019-08-27] MEDS ORDERED: PYRI1TAB5 PO (15:51)
[2019-08-27 16:14] VITALS: BP 175/77
== END 2019-08-27 16:26 | disposition home or self-care (01) ==
LOC: M ED 13:03
DX: K59.00 Constipation, unspecified (principal); R30.0 Dysuria; Z87.891 Personal history of nicotine dependence; Z79.82 Long term (current) use of aspirin; Z79.899 Other long term (current) drug therapy; Z88.0 Allergy status to penicillin

== ENCOUNTER → 2019-10-25 | Outpatient (REF) | payer MEDICARE ==
[~2019-10-25] MED LIST changes: +ACET-897 PO; +BUSP30TA PO; +CIPR-249 PO; +DULC10SU2 PR; +MIRA3350 PO
== END ==
LOC: M LAB REF 16:45
PROVIDERS: ATTEND Physician Assistant
DX: N39.0 Urinary tract infection, site not specified (principal)

== ENCOUNTER 2019-10-26 06:19 | Inpatient (IN) | payer MEDICARE ==
[~2019-10-26] VITALS: Ht 165.1 cm; Wt 93.3 kg
[~2019-10-26 06:19] MED LIST changes: -ACET-897 PO; -BUSP30TA PO; -CIPR-249 PO
[2019-10-26] MEDS ORDERED: NITR100C2 PO (06:28)
[2019-10-26 07:35] LABS: BASO # 0.1 10^3/uL (0.0-0.2); BASO % 0.2 % (0.0-1.0); EOS % 0.1 % (0.0-3.0); HEMATOCRIT 42.9 % (36.0-47.0); HEMOGLOBIN 13.8 g/dl (12.0-15.5); LYMPH # 0.5 10^3/uL (1.5-5.0); MEAN CORPUSCULAR HEMOGLOBIN 31.9 pg (27.0-33.0); MEAN CORPUSCULAR HGB CONC 32.2 g/dl (32.0-36.5); MEAN CORPUSCULAR VOLUME 99.3 fl (80.0-96.0); MONO # 0.9 10^3/uL (0.0-0.8); NEUTROPHILS # 20.7 10^3/uL (1.5-8.5); NEUTROPHILS % 92.9 % (36.0-66.0); PLATELET COUNT, AUTOMATED 170 10^3/uL (150-450); RED BLOOD COUNT 4.32 10^6/uL (4.00-5.40); WHITE BLOOD COUNT 22.3 10^3/uL (4.0-10.0)
[2019-10-26 08:00] LABS: INFLUENZA A AMPLIFICATION NEGATIVE (NEGATIVE); INFLUENZA B AMPLIFICATION NEGATIVE (NEGATIVE)
[2019-10-26 08:03] LABS: ALBUMIN 3.4 GM/DL (3.2-5.2); BILIRUBIN,DIRECT 0.2 MG/DL (0.0-0.2); BILIRUBIN,TOTAL 0.5 MG/DL (0.2-1.0); CALCIUM LEVEL 8.9 MG/DL (8.8-10.2); CK-MB VALUE MASS 1.2 NG/ML (<3.6); CREATININE FOR GFR 1.03 MG/DL (0.55-1.30); GLOMERULAR FILTRATION RATE 54.5 (>32); MB/CK RELATIVE INDEX 3.43 (< OR =4); POTASSIUM SERUM 4.4 MEQ/L (3.5-5.1); TOTAL PROTEIN 6.8 GM/DL (6.4-8.2); TROPONIN I 0.03 NG/ML (< 0.10)
[2019-10-26] MEDS ORDERED: IPRATROPIUM 0.5MG/ALBUTEROL 2.5MG INH SOL UD 3ML (DUONEB)(J7620) NEB ONE (08:15)
--- NOTE | 2019-10-26 08:21 | REP ---
Clinical: Cough . Comparison: 08/27/2019 . Findings: The mediastinum and cardiac silhouette are stable and within normal limits for portable technique. The lung mas are clear without acute consolidation, effusion, or pneumothorax. Skeletal structures are intact. Impression: No acute cardiopulmonary process appreciated. Electronically Signed by Arnaldo Jarvis MD 10/26/2019 08:13 A
[2019-10-26 08:55] LABS: C REACTIVE PROTEIN QUANTITATIV 0.93 MG/DL (0.00-0.30)
[2019-10-26] MEDS ORDERED: ONDANSETRON 4MG/2ML VIAL (J2405) IV ONE (09:00)
[2019-10-26] MEDS: CIPROFLOXACIN 400 MG in IV 1 EA IV SCH ×2 (09:00→22:24)
[2019-10-26 09:09] LABS: ERYTHROCYTE SEDIMENTATION RATE 21 mm/hr (0-30)
--- NOTE | 2019-10-26 11:43 | REP ---
Clinical: Pyelonephritis. Comparison: 08/14/2019. Technique: Axial noncontrast images from the lung bases to the pubic symphysis with coronal and sagittal re-formations. Findings: Lung bases demonstrate chronic interstitial changes. Liver, spleen, atrophic pancreas, bilateral adrenal glands and kidneys are normal for noncontrast evaluation. There is no significant perinephric stranding or hydroureteronephrosis and no evidence for nephrolithiasis. The enteric system is without obstruction or acute inflammatory process. Normal terminal ileum and appendix are identified in the right lower quadrant. Pelvis demonstrates normal bladder and age-appropriate uterus/adnexa. No ascites. No free air. No adenopathy. Atherosclerotic changes to the aorta without aneurysm. Musculoskeletal structures demonstrate degenerative changes without focal abnormality. Impression: 1. No acute abdominopelvic pathology appreciated by CT. 2. Relatively normal appearance to the kidneys. Correlation with urinalysis is recommended. 3. No ascites. No free air. No adenopathy. Electronically Signed by Arnaldo Jarvis MD 10/26/2019 11:34 A
[2019-10-26] MEDS ORDERED: BUSP30TA PO (12:50)
[2019-10-26] MEDS ORDERED: ACET-897 PO (12:50)
[2019-10-26] MEDS ORDERED: ACETAMINOPHEN TAB 650MG DOSE (2X325MG) PO PRN (14:15)
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
[2019-10-26 15:10] VITALS: BP 97/69
--- NOTE | 2019-10-26 15:25 | ECGEPIP ---
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
[2019-10-26] MEDS: ASPIRIN 81 MG ENTERIC TAB PO SCH (16:57)
[2019-10-26] MEDS: CYANOCOBALAMIN 500 MCG TAB PO SCH (16:57)
[2019-10-26] MEDS: IBUPROFEN 400 MG TAB PO PRN (19:04)
[2019-10-26 22:00] VITALS: BP 95/51
[2019-10-26] MEDS: busPIRone 10 MG TAB PO SCH (22:24)
[2019-10-26] MEDS: ATORVASTATIN 10 MG TAB PO SCH (22:24)
[2019-10-26] MEDS: ENOXAPARIN 40 MG/0.4 ML SYRINGE (J1650) SC SCH (22:24)
[2019-10-27 05:47] LABS: MEAN CORPUSCULAR HEMOGLOBIN 31.8 pg (27.0-33.0); MEAN CORPUSCULAR HGB CONC 31.4 g/dl (32.0-36.5); MEAN CORPUSCULAR VOLUME 101.4 fl (80.0-96.0); PLATELET COUNT, AUTOMATED 146 10^3/uL (150-450); RED BLOOD COUNT 3.65 10^6/uL (4.00-5.40); WHITE BLOOD COUNT 23.1 10^3/uL (4.0-10.0)
[2019-10-27 05:53] LABS: HEMOGLOBIN 11.6 g/dl (12.0-15.5)
[2019-10-27 06:00] VITALS: BP 118/50
[2019-10-27 06:17] LABS: CALCIUM LEVEL 8.7 MG/DL (8.8-10.2); CREATININE FOR GFR 1.09 MG/DL (0.55-1.30); MAGNESIUM LEVEL 2.1 MG/DL (1.8-2.4); POTASSIUM SERUM 4.3 MEQ/L (3.5-5.1)
[2019-10-27] MEDS: CIPROFLOXACIN 400 MG in IV 1 EA IV SCH ×2 (10:53→20:26)
[2019-10-27] MEDS: busPIRone 10 MG TAB PO SCH ×2 (10:54→20:26)
[2019-10-27] MEDS: CYANOCOBALAMIN 500 MCG TAB PO SCH (10:54)
[2019-10-27] MEDS: ASPIRIN 81 MG ENTERIC TAB PO SCH (10:54)
[2019-10-27] MEDS: OLMESARTAN MEDOXOMIL 20 MG TAB (BENICAR) PO SCH (10:55)
--- NOTE | 2019-10-27 11:14 | IPN ---
DATE: 10/27/2019 Bre [facility]. She was admitted to the hospitalist service. She was admitted with leukocytosis, chills, and suspected urinary tract infection (UTI). She was on oral antibiotic (nitrofurantoin) when her urine culture was obtained and it unfortunately has returned sterile. Clinically, she acts like she has a urinary tract infection and continues to have shaking chills. We have not found an identified cause for these. Her urine suggested a partially treated urinary tract infection. CT of the abdomen and pelvis showed no perinephric abscess or other acute process. Chest x-ray was clear as well. Currently on Cipro and despite having the chills, she says she feels better since starting this. PHYSICAL EXAMINATION: Afebrile, blood pressure 118/50. Lungs clear. Heart regular rhythm. Abdomen soft, nontender. No costovertebral angle (CVA) tenderness. LABS: White count 23,000, hemoglobin 11.6. Electrolytes are unremarkable. Renal function is stable. IMPRESSION: 1. Suspected pyelonephritis: Urine culture is negative, probably because of concurrent oral antibiotic therapy that sterilized the culture. I am ordering blood cultures. Will continue the Cipro. Followup CBC has been ordered. 2. Hyperlipidemia: Continue atorvastatin. 3. Recurrent urinary tract infections: She should see a urologist as an outpatient. 4. Lumbar spinal stenosis with radiculopathy: Continue her nonsteroidal therapy. 5. History of anxiety: Continue her buspirone. 6. Hypertensive heart disease: Continue her olmesartan 5 mg daily.
[2019-10-27 14:00] VITALS: BP 109/38
[2019-10-27] MEDS ORDERED: MAALOX 30 ML SUSP *UDC PO PRN (14:00)
[2019-10-27] MEDS ORDERED: ONDANSETRON 4MG/2ML VIAL (J2405) IV PRN (14:00)
[2019-10-27] MEDS: ATORVASTATIN 10 MG TAB PO SCH (20:26)
[2019-10-27] MEDS: ENOXAPARIN 40 MG/0.4 ML SYRINGE (J1650) SC SCH (20:27)
[2019-10-27 22:00] VITALS: BP 105/76
[2019-10-28 05:59] LABS: HEMATOCRIT 35.2 % (36.0-47.0); HEMOGLOBIN 11.1 g/dl (12.0-15.5); MEAN CORPUSCULAR HEMOGLOBIN 31.5 pg (27.0-33.0); MEAN CORPUSCULAR HGB CONC 31.5 g/dl (32.0-36.5); PLATELET COUNT, AUTOMATED 147 10^3/uL (150-450); RED BLOOD COUNT 3.52 10^6/uL (4.00-5.40); WHITE BLOOD COUNT 9.5 10^3/uL (4.0-10.0)
[2019-10-28 06:00] VITALS: BP 124/51
[2019-10-28 06:22] LABS: CALCIUM LEVEL 8.6 MG/DL (8.8-10.2); CREATININE FOR GFR 1.19 MG/DL (0.55-1.30); GLOMERULAR FILTRATION RATE 46.1 (>32); POTASSIUM SERUM 4.1 MEQ/L (3.5-5.1)
[2019-10-28] MEDS: busPIRone 10 MG TAB PO SCH ×2 (08:55→20:35)
[2019-10-28] MEDS: CYANOCOBALAMIN 500 MCG TAB PO SCH (08:55)
[2019-10-28] MEDS: ASPIRIN 81 MG ENTERIC TAB PO SCH (08:55)
[2019-10-28] MEDS: CIPROFLOXACIN 400 MG in IV 1 EA IV SCH ×2 (08:56→20:35)
[2019-10-28] MEDS: OLMESARTAN MEDOXOMIL 20 MG TAB (BENICAR) PO SCH (08:56)
[2019-10-28 14:00] VITALS: BP 120/50
[2019-10-28] MEDS: NYSTATIN 100,000 UNITS/GM TOPICAL PWD 15 GM TOP SCH ×2 (14:54→20:40)
--- NOTE | 2019-10-28 17:00 | IPN ---
DATE: 10/28/2019 Bre is seen [facility]. She is admitted with suspected pyelonephritis with urine culture sterilized by outpatient/concurrent oral antibiotic therapy. She is still having chills, although they are less rigorous and less frequent. Her white count is coming down, too, both of which suggest that she is responding to the prescribed empiric antibiotic therapy with Cipro. PHYSICAL EXAMINATION: Afebrile, vital signs stable. LUNGS: Clear. HEART: Regular rate and rhythm. ABDOMEN: Soft, nontender. No costovertebral angle (CVA) tenderness. No peripheral edema. LABORATORY DATA: White count is down to 9.5. Renal function is normal. Creatinine is 1.1. Blood and urine cultures are negative. IMPRESSION: 1. Suspected pyelonephritis with urine culture sterilized by the oral antibiotic (nitrofurantoin) she was taking as outpatient. Clinically, she is acting like she has pyelonephritis and clinically, she is responding to the prescribed Cipro. We will continue this for now. 2. Recurring urinary tract infection. She should see a urologist as outpatient. We discussed her asking Dr. Mancuso for this referral when she sees him after hospitalization. 3. Hyperlipidemia. Stable on atorvastatin. 4. Spinal stenosis with radiculopathy. Continue her current treatment. 5. Hypertension. Blood pressure is well-controlled on the current regimen. Anticipate discharge midweek.
[2019-10-28] MEDS: ENOXAPARIN 40 MG/0.4 ML SYRINGE (J1650) SC SCH (20:35)
[2019-10-28] MEDS: ATORVASTATIN 10 MG TAB PO SCH (20:35)
[2019-10-28 22:00] VITALS: BP 122/55
[2019-10-29 05:57] LABS: HEMOGLOBIN 11.3 g/dl (12.0-15.5); MEAN CORPUSCULAR HEMOGLOBIN 31.8 pg (27.0-33.0); MEAN CORPUSCULAR HGB CONC 31.4 g/dl (32.0-36.5); MEAN CORPUSCULAR VOLUME 101.4 fl (80.0-96.0); PLATELET COUNT, AUTOMATED 171 10^3/uL (150-450); RED BLOOD COUNT 3.55 10^6/uL (4.00-5.40); WHITE BLOOD COUNT 7.5 10^3/uL (4.0-10.0)
[2019-10-29] MEDS: SENNA 8.6 MG TAB (SENOKOT) PO PRN ×2 (05:59→21:20)
[2019-10-29] MEDS: MIRALAX *UNIT DOSE* 17GM PACKET PO PRN (05:59)
[2019-10-29] MEDS: IBUPROFEN 400 MG TAB PO PRN (05:59)
[2019-10-29 06:00] VITALS: BP 112/57
[2019-10-29 06:21] LABS: CALCIUM LEVEL 8.5 MG/DL (8.8-10.2); CREATININE FOR GFR 1.09 MG/DL (0.55-1.30); POTASSIUM SERUM 4.6 MEQ/L (3.5-5.1)
[2019-10-29] MEDS: busPIRone 10 MG TAB PO SCH ×2 (08:39→21:20)
[2019-10-29] MEDS: CIPROFLOXACIN 400 MG in IV 1 EA IV SCH (08:39)
[2019-10-29] MEDS: CYANOCOBALAMIN 500 MCG TAB PO SCH (08:40)
[2019-10-29] MEDS: ASPIRIN 81 MG ENTERIC TAB PO SCH (08:40)
[2019-10-29] MEDS: OLMESARTAN MEDOXOMIL 20 MG TAB (BENICAR) PO SCH (08:43)
[2019-10-29] MEDS: NYSTATIN 100,000 UNITS/GM TOPICAL PWD 15 GM TOP SCH ×2 (09:00→21:20)
--- NOTE | 2019-10-29 11:09 | IPN ---
DATE: 10/29/2019 Bre continues to improve. She is a little distressed over the recurrent urinary tract infections. We spent a lot of time talking about this and setting up an after discharge plan with her. She has presumed pyelonephritis with sterilized urine from outpatient therapy with nitrofurantoin. Clinically, she presented suggesting a pyelo - she had urinary symptoms, shaking chills and a leukocytosis. The chills have almost completely resolved. Her white count is down to normal and she looks better on a daily basis, so clinically she had a pyelo which is now under appropriate treatment. PHYSICAL EXAMINATION: 133/84. Afebrile. Alert and conversant, in no distress. Lungs clear. Heart: Regular rhythm. Abdomen soft. Nontender. No CVA tenderness. LABS: White count 7.5, hemoglobin 11.3. Electrolytes unremarkable. Renal function normal. IMPRESSION: 1. Presumed pyelonephritis. Doing well on IV Cipro. I expect she could be discharged tomorrow on oral Cipro. We discussed this on case rounds today. She will get a home safety evaluation and will be discharged. 2. Recurrent urinary tract infection. She should see a urologist after discharge. We discussed her asking Dr. Mancuso for this at her followup visit after hospitalization. 3. Spinal stenosis with radiculopathy. Not currently an active problem. 4. Hyperlipidemia. Continue atorvastatin. Home safety evaluation and anticipate discharge tomorrow.
[2019-10-29 14:00] VITALS: BP 153/65
[2019-10-29] MEDS: CIPROFLOXACIN 500 MG TAB PO SCH (17:11)
[2019-10-29] MEDS: ENOXAPARIN 40 MG/0.4 ML SYRINGE (J1650) SC SCH (21:20)
[2019-10-29] MEDS: ATORVASTATIN 10 MG TAB PO SCH (21:20)
[2019-10-29 22:00] VITALS: BP 128/62
[2019-10-30] MEDS: IBUPROFEN 400 MG TAB PO PRN (05:28)
[2019-10-30] MEDS: CIPROFLOXACIN 500 MG TAB PO SCH (05:28)
[2019-10-30 06:00] VITALS: BP 136/70
[2019-10-30 06:14] LABS: HEMOGLOBIN 11.7 g/dl (12.0-15.5); MEAN CORPUSCULAR HEMOGLOBIN 31.3 pg (27.0-33.0); MEAN CORPUSCULAR HGB CONC 30.8 g/dl (32.0-36.5); MEAN CORPUSCULAR VOLUME 101.6 fl (80.0-96.0); PLATELET COUNT, AUTOMATED 181 10^3/uL (150-450); RED BLOOD COUNT 3.74 10^6/uL (4.00-5.40); WHITE BLOOD COUNT 6.8 10^3/uL (4.0-10.0)
[2019-10-30 06:41] LABS: BLOOD UREA NITROGEN 26 MG/DL (7-18); CALCIUM LEVEL 8.6 MG/DL (8.8-10.2); CARBON DIOXIDE LEVEL 29 MEQ/L (21-32); CHLORIDE LEVEL 104 MEQ/L (98-107); CREATININE FOR GFR 0.93 MG/DL (0.55-1.30); GLOMERULAR FILTRATION RATE > 60.0 (>32); GLUCOSE, FASTING 111 MG/DL (70-100); POTASSIUM SERUM 4.4 MEQ/L (3.5-5.1); SODIUM LEVEL 138 MEQ/L (136-145)
[2019-10-30 09:36] VITALS: BP 136/70
[2019-10-30] MEDS: MIRALAX *UNIT DOSE* 17GM PACKET PO PRN (09:36)
[2019-10-30] MEDS: OLMESARTAN MEDOXOMIL 20 MG TAB (BENICAR) PO SCH (09:36)
[2019-10-30] MEDS: ASPIRIN 81 MG ENTERIC TAB PO SCH (09:36)
[2019-10-30] MEDS: CYANOCOBALAMIN 500 MCG TAB PO SCH (09:36)
[2019-10-30] MEDS: busPIRone 10 MG TAB PO SCH (09:36)
[2019-10-30] MEDS: NYSTATIN 100,000 UNITS/GM TOPICAL PWD 15 GM TOP SCH (09:37)
[2019-10-30] MEDS ORDERED: CIPR-249 PO (10:23)
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
== END 2019-10-30 12:27 | disposition home or self-care (01) | DRG 690 ==
LOC: M ED 06:19 → OBSVTOIN 06:20 → M ED INP 06:20 → ENRESERV 14:35 → M MSPAV 15:05
PROVIDERS: ADMIT Internal Medicine; ATTEND Internal Medicine
DX: N12 Tubulo-interstitial nephritis, not specified as acute or chronic (principal); N39.0 Urinary tract infection, site not specified; E78.5 Hyperlipidemia, unspecified; M54.16 Radiculopathy, lumbar region; M48.061 Spinal stenosis, lumbar region without neurogenic claudication; F32.9 Major depressive disorder, single episode, unspecified; F41.9 Anxiety disorder, unspecified; Z98.42 Cataract extraction status, left eye; I11.9 Hypertensive heart disease without heart failure; D72.829 Elevated white blood cell count, unspecified; Z88.0 Allergy status to penicillin; Z79.82 Long term (current) use of aspirin; Z79.899 Other long term (current) drug therapy

== ENCOUNTER 2019-11-18 19:45 | Emergency (ER) | payer MEDICARE ==
[~2019-11-18] VITALS: Ht 165.1 cm; Wt 90.5 kg
[~2019-11-18 19:45] MED LIST changes: +ACET-897 PO; +BUSP30TA PO; +CIPR-249 PO
[2019-11-18] MEDS ORDERED: CIPROFLOXACIN 500 MG TAB PO ONE (20:45)
[2019-11-18] MEDS ORDERED: PHENAZOPYRIDINE 100 MG TAB PO ONE (20:45)
[2019-11-18] MEDS ORDERED: NS 1,000 ML IV ONE (20:45)
[2019-11-18 20:53] LABS: BASO % 0.3 % (0.0-1.0); EOS # 0.1 10^3/uL (0.0-0.5); HEMATOCRIT 43.7 % (36.0-47.0); HEMOGLOBIN 13.6 g/dl (12.0-15.5); LYMPH # 1.5 10^3/uL (1.5-5.0); LYMPH % 18.8 % (24.0-44.0); MEAN CORPUSCULAR HEMOGLOBIN 30.8 pg (27.0-33.0); MEAN CORPUSCULAR HGB CONC 31.1 g/dl (32.0-36.5); MEAN CORPUSCULAR VOLUME 98.9 fl (80.0-96.0); MONO # 0.6 10^3/uL (0.0-0.8); MONO % 7.2 % (0.0-5.0); NEUTROPHILS # 5.7 10^3/uL (1.5-8.5); NEUTROPHILS % 72.3 % (36.0-66.0); PLATELET COUNT, AUTOMATED 155 10^3/uL (150-450); RED BLOOD COUNT 4.42 10^6/uL (4.00-5.40); WHITE BLOOD COUNT 7.9 10^3/uL (4.0-10.0)
[2019-11-18 21:23] LABS: ALBUMIN 3.9 GM/DL (3.2-5.2); BILIRUBIN,DIRECT 0.1 MG/DL (0.0-0.2); BILIRUBIN,TOTAL 0.4 MG/DL (0.2-1.0); TOTAL PROTEIN 7.2 GM/DL (6.4-8.2)
[2019-11-18] MEDS ORDERED: PYRI1TAB5 PO (21:39)
[2019-11-18 21:46] VITALS: BP 140/98
== END 2019-11-18 21:50 | disposition home or self-care (01) ==
LOC: M ED 19:45
DX: R30.0 Dysuria (principal); I50.9 Heart failure, unspecified; E78.5 Hyperlipidemia, unspecified; Z87.448 Personal history of other diseases of urinary system; M54.9 Dorsalgia, unspecified; F41.9 Anxiety disorder, unspecified; K21.9 Gastro-esophageal reflux disease without esophagitis; K57.32 Diverticulitis of large intestine without perforation or abscess without bleeding; H40.9 Unspecified glaucoma; Z79.82 Long term (current) use of aspirin; Z79.899 Other long term (current) drug therapy; Z88.0 Allergy status to penicillin

== ENCOUNTER → 2019-11-20 | Outpatient (REF) | payer MEDICARE ==
[~2019-11-20] MED LIST changes: +DOXY100T27; +MUCI600T31 PO; +ONDA4TAB6; +PROAAER10
[2019-11-20 18:34] LABS: APPEARANCE, URINE CLEAR (CLEAR); BACTERIA, URINE AUTO NEGATIVE (NEGATIVE); BILIRUBIN, URINE AUTO NEGATIVE (NEGATIVE); BLOOD, URINE BLOOD 1+ (NEGATIVE); COLOR, URINE AMBER (YELLOW); GLUCOSE, URINE (UA) AUTO NEGATIVE (NEGATIVE); KETONE, URINE AUTO NEGATIVE (NEGATIVE); LEUKOCYTE ESTERASE, URINE AUTO NEGATIVE (NEGATIVE); NITRITE, URINE AUTO POSITIVE (NEGATIVE); PROTEIN, URINE AUTO NEGATIVE (NEGATIVE); RBC, URINE AUTO 6 /HPF (0-3); SPECIFIC GRAVITY URINE AUTO 1.015 (1.002-1.035); SQUAMOUS EPITHELIAL CELL UR AU 6 /HPF (0-6); WBC, URINE AUTO 10 /HPF (0-3)
== END ==
LOC: M SMT 17:05
PROVIDERS: ATTEND Nurse Practitioner Women's Health
DX: R30.0 Dysuria (principal)
CPT/HCPCS: 51798; 81001; 87086; G0463

== ENCOUNTER → 2019-11-30 | Outpatient (CLI) | payer MEDICARE ==
[~2019-11-30] MED LIST changes: -DOXY100T27; -MUCI600T31 PO; -ONDA4TAB6; -PROAAER10
--- NOTE | 2019-11-30 09:33 | REP ---
Chest x-ray: Two views. History: Flu. Findings: AP and lateral views of the chest show that the patient is status post cervical discectomy and fusion plating. There are degenerative disc changes throughout the thoracic spine. No other bony abnormality is seen. Heart is not enlarged. The lungs are well inflated and clear. The thoracic aorta is calcific and slightly tortuous. Pulmonary vasculature is not increased. Pleural angles are sharp. Impression: No active cardiopulmonary disease. Electronically Signed by Claude Lloyd MD 11/30/2019 12:13 P
== END ==
LOC: M WUC 08:58
PROVIDERS: ATTEND Physician Assistant
DX: J10.1 Influenza due to other identified influenza virus with other respiratory manifestations (principal); R05 Cough; M51.34 Other intervertebral disc degeneration, thoracic region

== ENCOUNTER 2019-12-07 13:55 | Emergency (ER) | payer MEDICARE ==
[~2019-12-07] VITALS: Ht 165.1 cm; Wt 91.8 kg
[2019-12-07] MEDS ORDERED: DOXY100T27 (14:07)
[2019-12-07] MEDS ORDERED: ONDA4TAB6 (14:07)
[2019-12-07] MEDS ORDERED: PROAAER10 (14:07)
[2019-12-07 14:16] VITALS: BP 124/84
[2019-12-07] MEDS ORDERED: NS 500 ML IV ONE (15:30)
[2019-12-07] MEDS ORDERED: IPRATROPIUM 0.5MG/ALBUTEROL 2.5MG INH SOL UD 3ML (DUONEB)(J7620) NEB ONE (15:30)
[2019-12-07 15:51] LABS: BASO % 0.2 % (0.0-1.0); EOS % 0.4 % (0.0-3.0); HEMATOCRIT 38.3 % (36.0-47.0); HEMOGLOBIN 12.6 g/dl (12.0-15.5); LYMPH # 1.5 10^3/uL (1.5-5.0); LYMPH % 26.2 % (24.0-44.0); MEAN CORPUSCULAR HGB CONC 32.9 g/dl (32.0-36.5); MEAN CORPUSCULAR VOLUME 97.2 fl (80.0-96.0); MONO # 0.5 10^3/uL (0.0-0.8); MONO % 8.2 % (0.0-5.0); NEUTROPHILS # 3.6 10^3/uL (1.5-8.5); NEUTROPHILS % 64.6 % (36.0-66.0); PLATELET COUNT, AUTOMATED 170 10^3/uL (150-450); RED BLOOD COUNT 3.94 10^6/uL (4.00-5.40); WHITE BLOOD COUNT 5.6 10^3/uL (4.0-10.0)
[2019-12-07 16:10] LABS: BLOOD UREA NITROGEN 9 MG/DL (7-18); CALCIUM LEVEL 8.4 MG/DL (8.8-10.2); CARBON DIOXIDE LEVEL 31 MEQ/L (21-32); CHLORIDE LEVEL 101 MEQ/L (98-107); CREATININE FOR GFR 0.75 MG/DL (0.55-1.30); GLOMERULAR FILTRATION RATE > 60.0 (>32); GLUCOSE, FASTING 100 MG/DL (70-100); POTASSIUM SERUM 4.1 MEQ/L (3.5-5.1); SODIUM LEVEL 136 MEQ/L (136-145)
--- NOTE | 2019-12-07 16:14 | REP ---
Clinical: Cough the flu-like symptoms Technique: PA and lateral. Comparison: 11/30/2019. Findings: Mediastinum and cardiac silhouette are stable. Lung mas are clear. No focal consolidation, effusion, or pneumothorax. Skeletal structures demonstrate age-related degenerative changes. Impression: No acute consolidation or effusion. Electronically Signed by Arnaldo Jarvis MD 12/07/2019 04:05 P
[2019-12-07] MEDS ORDERED: MUCI600T31 PO (17:47)
== END 2019-12-07 18:17 | disposition home or self-care (01) ==
LOC: M ED 13:55
DX: J20.9 Acute bronchitis, unspecified (principal); J11.1 Influenza due to unidentified influenza virus with other respiratory manifestations; Z87.891 Personal history of nicotine dependence; I50.9 Heart failure, unspecified; E78.00 Pure hypercholesterolemia, unspecified; I10 Essential (primary) hypertension; Z87.01 Personal history of pneumonia (recurrent); K21.9 Gastro-esophageal reflux disease without esophagitis; K57.32 Diverticulitis of large intestine without perforation or abscess without bleeding; Z87.440 Personal history of urinary (tract) infections; M54.16 Radiculopathy, lumbar region; F41.9 Anxiety disorder, unspecified; Z79.82 Long term (current) use of aspirin; Z79.899 Other long term (current) drug therapy; Z88.0 Allergy status to penicillin

== ENCOUNTER 2019-12-17 07:58 | Inpatient (IN) | payer MEDICARE ==
[~2019-12-17] VITALS: Ht 165.1 cm; Wt 87.9 kg
[~2019-12-17 07:58] MED LIST changes: +DOXY100T27; +MUCI600T31 PO; +ONDA4TAB6; +PROAAER10 INH
[2019-12-17] MEDS ORDERED: SERT50TA29 PO (08:09)
[2019-12-17 10:26] LABS: HEMATOCRIT 42.6 % (36.0-47.0); HEMOGLOBIN 14.1 g/dl (12.0-15.5); MEAN CORPUSCULAR HGB CONC 33.1 g/dl (32.0-36.5); MEAN CORPUSCULAR VOLUME 96.8 fl (80.0-96.0); PLATELET COUNT, AUTOMATED 162 10^3/uL (150-450); WHITE BLOOD COUNT 7.7 10^3/uL (4.0-10.0)
[2019-12-17 10:59] LABS: AMPHETAMINES LEVEL URINE NEGATIVE (NEGATIVE); BARBITURATES URINE NEGATIVE (NEGATIVE); BENZODIAZEPINES URINE NEGATIVE (NEGATIVE); CANNABINOIDS URINE NEGATIVE (NEGATIVE); COCAINE METABOLITE URINE NEGATIVE (NEGATIVE); METHADONE URINE NEGATIVE (NEGATIVE); OPIATES URINE NEGATIVE (NEGATIVE); PHENCYCLIDINE URINE NEGATIVE (NEGATIVE)
[2019-12-17 11:08] LABS: ACETAMINOPHEN LEVEL < 2.0 UG/ML (10.0-30.0); ALBUMIN 3.8 GM/DL (3.2-5.2); ALT/SGPT 13 U/L (12-78); BILIRUBIN,DIRECT 0.2 MG/DL (0.0-0.2); BILIRUBIN,TOTAL 0.5 MG/DL (0.2-1.0); BLOOD UREA NITROGEN 9 MG/DL (7-18); CALCIUM LEVEL 8.7 MG/DL (8.8-10.2); CARBON DIOXIDE LEVEL 31 MEQ/L (21-32); CHLORIDE LEVEL 101 MEQ/L (98-107); CREATININE FOR GFR 0.74 MG/DL (0.55-1.30); ETHYL ALCOHOL (ETHANOL) < 0.003 % (0.000-0.010); GLOMERULAR FILTRATION RATE > 60.0 (>32); GLUCOSE, FASTING 106 MG/DL (70-100); POTASSIUM SERUM 4.5 MEQ/L (3.5-5.1); SALICYLATE LEVEL < 1.7 MG/DL (5.0-30.0); SODIUM LEVEL 137 MEQ/L (136-145); TOTAL PROTEIN 7.1 GM/DL (6.4-8.2)
--- NOTE | 2019-12-17 11:17 | ECGEPIP ---
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
[2019-12-17] MEDS ORDERED: MOM 30ML SUSPENSION UDC PO PRN (16:00)
[2019-12-17] MEDS ORDERED: traZODone 50 MG TAB PO PRN (16:00)
[2019-12-17] MEDS ORDERED: ACETAMINOPHEN TAB 650MG DOSE (2X325MG) PO PRN (16:00)
[2019-12-17] MEDS ORDERED: ALBUTEROL 90 MCG/ACT 8GM HFA INHALER INH PRN (16:15)
[2019-12-17 17:39] VITALS: BP 153/65
[2019-12-17] MEDS: busPIRone 10 MG TAB PO SCH (20:16)
[2019-12-17] MEDS: ATORVASTATIN 10 MG TAB PO SCH (20:16)
[2019-12-17] MEDS ORDERED: SERTRALINE HCL 50 MG TAB PO SCH (21:00)
[2019-12-18] MEDS: ACETAMINOPHEN 500 MG TAB PO PRN (04:38)
[2019-12-18 07:01] VITALS: BP 128/61
[2019-12-18] MEDS: CYANOCOBALAMIN 500 MCG TAB PO SCH (09:13)
[2019-12-18] MEDS: busPIRone 10 MG TAB PO SCH ×2 (09:13→20:27)
[2019-12-18] MEDS: ASPIRIN 81 MG ENTERIC TAB PO SCH (09:13)
--- NOTE | 2019-12-18 15:34 | HPEPDOC ---
[facility] Medical History & Physical Date of Admission Dec 18, 2019 Date of Service: Dec 18, 2019 Attending Physician: TIMO SMITH MD History and Physical CHIEF COMPLAINT: Admitted to inpatient mental health unit for depression HISTORY OF PRESENT ILLNESS: 84-year-old female with past medical history of hypertension, hyperlipidemia, anxiety and depression is admitted to inpatient mental health unit for worsening depression. Hospitalist service called for medical H&P, patient has no medical complaints at this time. She denies any shor tness of breath, chest pain, nausea, vomiting, abdominal pain or diarrhea. She takes medications for hypertension, hyperlipidemia and anxiety at this time. 10 point review of system is negative except for above PAST MEDICAL HISTORY: 1. Hypertension. 2. , Hyperlipidemia. 3. Anxiety and depression. PAST SURGICAL HISTORY: 1. Neck Surgery. 2. Cholecystectomy.. SOCIAL HISTORY: Previous smoker, quit many years ago. Denies alcohol use. Next line, denies drug use FAMILY HISTORY: Father had [place] ALLERGIES: Please see below. HOME MEDICATIONS: Please see below. PHYSICAL EXAMINATION: VITAL SIGNS: Please see below. GENERAL: No distress HEENT: Normocephalic, atraumatic, moist mucous membranes, hard of hearing NECK: Supple CARDIOVASCULAR EXAMINATION: S1, S2, no murmurs RESPIRATORY EXAMINATION: Clear to auscultation, no wheezing ABDOMINAL EXAMINATION: Soft, nontender, nondistended, positive bowel sounds EXTREMITIES: Range of motion intact SKIN: No rash NEUROLOGICAL EXAMINATION: Alert and oriented 3, no focal deficits PSYCHIATRIC EXAMINATION: Calm and cooperative LABORATORY DATA: See below. MICROBIOLOGY: Please see below. ASSESSMENT: 84-year-old female with past medical history of hypertension, hyperlipidemia, anxiety and depression, admitted for worsening depression. PLAN: 1. Anxiety and depression. Management as per primary team 2. Hypertension Continue Benicar 5 mg daily 3. Hyperlipidemia, Continue atorvastatin Patient has no active medical issues at this time, please reconsult as needed. Vital Signs Vital Signs Date Time Temp Pulse Resp B/P (MAP) Pulse Ox O2 Delivery O2 Flow Rate FiO2 12/18/19 10:46 Room Air 12/18/19 07:01 98.3 77 14 128/61 (83) 12/17/19 17:39 95 Home Medications Scheduled Aspirin (Aspir 81) 81 Mg Tablet., 81 MG PO DAILY Atorvastatin Calcium (Atorvastatin Calcium) 10 Mg Tablet, 10 MG PO QHS Buspirone HCl (Buspirone HCl) 30 Mg Tablet, 30 MG PO BID Cyanocobalamin (Vitamin B-12) (Vitamin B-12) 500 Mcg Tab, 500 MCG PO DAILY Olmesartan Medoxomil (Olmesartan Medoxomil) 5 Mg Tablet, 5 MG PO DAILY Sertraline HCl (Sertraline HCl) 50 Mg Tablet, 50 MG PO QHS Scheduled PRN Acetaminophen (Tylenol Extra Strength) 500 Mg Tablet, 1,000 MG PO TID PRN for PAIN / FEVER Albuterol Sulfate (Proair Hfa) 8.5 Gm Hfa.aer.ad, 2 PUFFS INH QID PRN for SHORTNESS OF BREATH Allergies Coded Allergies: Penicillins (Verified Allergy, Intermediate, HIVES, 08/27/19) A-FIB/CHADSVASC A-FIB History Current/History of A-Fib/PAF?: No TIMO SMITH MD Dec 18, 2019 15:34
[2019-12-18 16:00] VITALS: BP 133/80
[2019-12-18] MEDS: PILL CUTTER 1 EACH XX PRN (19:53)
[2019-12-18] MEDS: OLMESARTAN MEDOXOMIL 20 MG TAB (BENICAR) PO SCH (19:53)
[2019-12-18] MEDS: ATORVASTATIN 10 MG TAB PO SCH (20:27)
[2019-12-18] MEDS: SERTRALINE 100 MG TAB PO SCH (20:27)
--- NOTE | 2019-12-18 22:55 | MHHPE ---
DATE OF ADMISSION: 12/17/2019 DATE OF EVALUATION; 12/18/2019 HISTORY OF THE PRESENT ILLNESS: This is the first hospitalization for this 84-year-old woman who was brought to the hospital by the daughter. Apparently she has not been taking her prescribed medications, and she phoned her daughter this morning stating that she wanted to . According to the emergency room records, the patient had some medical problems last year, and this has caused her to constantly worry about . She admits she lives alone, but she hates living alone and she really wants to spend as much time at her daughter's home as she can. For the past few weeks, her sleep has been erratic, appetite has been poor. She talks about being chronically upset and a month ago, she had increase in BuSpar prescribed by her primary care provider, and she thinks that maybe the medication was too strong. Apparently she has not been taking her medications now for at least a few weeks. She has not been eating well. She states that she feels depressed, especially for the past 2 months. She feels hopeless and helpless. She has no desire to do anything, and states, "I have to force myself to get moving." She is currently even more depressed because she says that her daughter has told her that when she gets out of the hospital, she wants nothing to do with her. She feels that this is because she has been in the hospital a lot, and "they think that it is all in my head." She said that she said something to the daughter about going to take two pills and that the daughter took that to mean that she was going to overdose and that that was not what she meant. According to the emergency room records, the daughter, Tess, states that she is increasingly frustrated with her mother. Apparently the patient's son has stopped being involved with the patient. Tess says that the patient is disruptive to family functioning as she tends to have all the attention on herself. In February 2014, Tess's teenage 16-year-old son committed suicide, and the family was able to handle their grief by advocating for awareness and preventative education. The patient apparently since the suicide has been using the son's to get attention for herself. This is all according to her daughter, Tess. According to Tess, the patient is constantly wanting to get attention for herself, and if she is denied this attention, Tess feels that she will do things until she gets what she wants. Because of that, Tess was fearful that the patient might indeed harm herself. It seems that she has had trouble with depression and anxiety she says for a long time, but she has only been treated with psychotropic medications by primary care provider who started buspirone and recently increased it to 30 mg twice a day. The patient thinks that maybe that is too strong. She apparently was just started on Zoloft 50 mg daily. I was able to review records from [facility] outpatient clinic, and it sounds as if Dr. Mancuso had been treating her with Xanax at one point but then changed the medication to buspirone. According to the intake evaluation done at [facility] outpatient behavioral health clinic in 08/2019, she also reported increased anxiety, especially in the winter months, how she tends to worry a lot about her health, and that she tends to dwell on everything. I did not elicit any hypomanic or manic-like symptoms in this patient or post-traumatic stress disorder (PTSD), obsessive-compulsive disorder (OCD), or panic-like symptoms. PAST PSYCHIATRIC HISTORY: She has never had any prior hospitalization or any outpatient psychiatric treatment before this. She has never made any suicidal attempts. FAMILY HISTORY: Her grandson committed suicide at the age of 16. MEDICAL HISTORY: The patient states that she has hypertension, gastroesophageal reflux disease (GERD), and that she was recently diagnosed with a heart murmur. ABUSE HISTORY: She denies any history of any physical or sexual abuse. SUBSTANCE ABUSE HISTORY: She has never had any trouble with alcohol or drugs. REVIEW OF SYSTEMS: Vital Signs: Blood pressure 126/61, pulse 77, respirations 14. Appearance: She did not appear to be in any apparent distress. Neuromuscular system: The patient's gait is normal, and there is no involuntary movement noted. All other systems were reviewed and found to be negative. MENTAL STATUS EXAM: This patient is alert and oriented times three. Eye contact fair. Psychomotor activity is decreased. She is verbally spontaneous. There is no formal thought disorder noted. Mood is depressed and anxious. Affect full range and appropriate. She is denying suicidal ideations now. She is not homicidal. Concentration is fair. Memory is intact. Insight and judgment is poor. DIAGNOSES: Major depressive disorder, recurrent, severe without psychotic symptoms. Generalized anxiety disorder. TREATMENT PLAN: The patient is very depressed. We will increase her Zoloft to 100 mg qhs and continue Buspar 30 mg bid. We ill continue to monitor for continued resolution of suicidal ideation. MTDD
[2019-12-19] MEDS: MAALOX 30 ML SUSP *UDC PO PRN (03:36)
[2019-12-19] MEDS ORDERED: LORazepam 0.5 MG TAB PO ONE (06:30)
[2019-12-19 06:54] VITALS: BP 112/72
--- NOTE | 2019-12-19 09:19 | MHIPNPDOC ---
[facility] Progress Note Progress Note [facility] Inpatient Progress Note [facility] Select Gender MRN: N/A Date of : MM/DD/YYYY Date of Service: 12/19/2019 History of Present Illness 84-year-old woman with a history of depression and possible cluster B personality traits presents initially with concerns of suicidality, however, she clarifies that she was not suicidal although she reports being extremely depressed. Interval History Narrative: The patient is met with solo. She reports that she still has difficulty moving around and is preoccupied with her somatic concerns. Affective: The patient still reports low mood, loss of interest and concentration problems. Psychotic: The patient denies any. Anxiety: The patient still has significant worry about her situation once she leaves Eating and sleeping behaviors: Improving, patient still has poor appetite and difficult sleeping due to roommate. Group Attendance: Attends infrequently. Medication Side effects: See ROS below Behavioral problems/significant events overnight: None reported. Staff Report: The patient generally amenable, although, does appear to have some attention-seeking behaviors. Review Of Systems General: Denies fever or appetite changes Cardiovascular: Denies Chest pain or palpations GI: The patient reports chronic constipation. Respiratory: Denies shortness of breath or cough Neuro: Denies dizziness, tremors Derm: Denies any rashes or pruritus : Denies any dysuria or urinary problems MSK: Reports chronic muscle stiffness and tightness Psychotherapy None on this visit. Vital Signs Reviewed. Mental Status Examination General: Well dressed with good hygiene Speech: Spontaneous and fluid Thought processes: Linear and logical MSK: Profoundly dysthymic with a constricted range. The patient has some slowing, difficulty with gait stability Thought content: Hopeless Abstract reasoning, and computation: Intact Description of associations: Intact Description of abnormal or psychotic thoughts: Denies any suicidal or homicidal ideation. Denies any auditory or visual hallucinations. Does not appear to be responding to internal stimuli. Does not appear to be endorsing any bizarre or paranoid ideation. Judgment: fair Insight: fair Orientation: Alert and orientated 3 Cognition: Grossly normal Recent and remote memory: Intact Attention span and concentration: Intact Fund of knowledge: Adequate Mood: "depressed" Affect: Profoundly dysthymic with a constricted range. The patient has some slowing, difficulty with gait stability. Diagnoses Major depressive disorder, recurrent, moderate to severe. Cluster B personality traits/borderline personality disorder. Assessment and Plan Major depressive disorder: Will continue patient on buspirone 30 mg BID, additionally sertraline will be increased to 100 mg tonight as previously ordered by prior provider. Additionally 8 mg of Rozerem will be ordered, as this is preferred in elderly patients. Cluster B personality traits: Will attempt to prevent staff splitting and reduce attention seeking behaviors. Disposition The patient will need a further inpatient admission in order to treat her severe depression that impairs her ability to eat with significant psycho motor and neurovegetative symptoms present. Time Spent 15 minutes. Vital Signs Vital Signs Date Time Temp Pulse Resp B/P (MAP) Pulse Ox O2 Delivery O2 Flow Rate FiO2 12/19/19 08:19 Room Air 12/19/19 06:54 98.0 79 14 112/72 (85) 12/17/19 17:39 95 Current Medications Current Medications Medications (Trade) Dose Ordered Sig/Nelly Route PRN Reason Start Time Stop Time Status Last Admin Dose Admin Acetaminophen (Tylenol Tab) 650 mg Q6HP PRN PO HEADACHE or DISCOMFORT 12/17/19 16:00 12/17/19 16:18 DC Acetaminophen (Tylenol Tab) 1,000 mg TIDP PRN PO PAIN / FEVER 12/17/19 16:15 12/18/19 04:38 Al Hydrox/Mg Hydrox/Simethicone (Mylanta) 30 ml Q4HP PRN PO HEARTBURN/INDIGESTION 12/17/19 16:00 12/19/19 03:36 Albuterol Sulfate (Proventil, Ventolin Hfa) 2 puff QIDP PRN INH SHORTNESS OF BREATH 12/17/19 16:15 Aspirin (Ecotrin) 81 mg DAILY PO 12/18/19 09:00 12/18/19 09:13 Atorvastatin Calcium (Lipitor) 10 mg QHS PO 12/17/19 21:00 12/18/19 20:27 Buspirone HCl (Buspar) 30 mg BID PO 12/17/19 21:00 12/18/19 20:27 Cyanocobalamin (Vitamin B12) 500 mcg DAILY PO 12/18/19 09:00 12/18/19 09:13 Home Med (Med Rec Complete!) ASDIRECTED XX 12/17/19 16:15 12/17/19 16:15 DC Magnesium Hydroxide (Milk Of Magnesia) 30 ml DAILYPRN PRN PO CONSTIPATION 12/17/19 16:00 Olmesartan (Benicar) 5 mg DAILY PO 12/18/19 09:00 12/18/19 19:53 Sertraline HCl (Zoloft) 50 mg QHS PO 12/17/19 21:00 12/18/19 13:57 DC 12/17/19 20:17 Sertraline HCl (Zoloft) 100 mg QHS PO 12/18/19 21:00 12/18/19 20:27 Trazodone HCl (Desyrel) 50 mg QHSP PRN PO INSOMNIA 12/17/19 16:00 Allergies Coded Allergies: Penicillins (Verified Allergy, Intermediate, HIVES, 08/27/19) FADI LAI DO Dec 19, 2019 09:19
[2019-12-19] MEDS ORDERED: ONDANSETRON 4 MG TAB (S0181) PO ONE (10:00)
[2019-12-19] MEDS: busPIRone 10 MG TAB PO SCH ×2 (10:15→20:32)
[2019-12-19] MEDS: ASPIRIN 81 MG ENTERIC TAB PO SCH (10:15)
[2019-12-19] MEDS: CYANOCOBALAMIN 500 MCG TAB PO SCH (10:16)
[2019-12-19] MEDS: OLMESARTAN MEDOXOMIL 20 MG TAB (BENICAR) PO SCH (12:15)
[2019-12-19 16:00] VITALS: BP 172/66
[2019-12-19] MEDS: RAMELTEON 8 MG TAB (ROZEREM) PO SCH (20:31)
[2019-12-19] MEDS: ATORVASTATIN 10 MG TAB PO SCH (20:31)
[2019-12-19] MEDS: SERTRALINE 100 MG TAB PO SCH (20:31)
--- NOTE | 2019-12-19 20:33 | REPVR ---
PROCEDURE INFORMATION: Exam: CT Head Without Contrast Exam date and time: 12/19/2019 7:21 PM Age: 84 years old Clinical indication: Injury or trauma; Fall; Initial encounter; Concussion / head injury TECHNIQUE: Imaging protocol: Computed tomography of the head without contrast. Radiation optimization: All CT scans at this facility use at least one of these dose optimization techniques: automated exposure control; mA and/or kV adjustment per patient size (includes targeted exams where dose is matched to clinical indication); or iterative reconstruction. COMPARISON: No relevant prior studies available. FINDINGS: Brain: No hemorrhage. Unremarkable white matter. No mass effect. Ventricles: The ventricles appear enlarged, but not out of proportion to the degree of parenchymal volume loss. Bones/joints: Unremarkable. No acute fracture. Sinuses: Visualized sinuses are unremarkable. No fluid levels. Mastoid air cells: Visualized mastoid air cells are well aerated. Soft tissues: Unremarkable. Vasculature: Atherosclerosis. IMPRESSION: No acute intracranial findings. Electronically signed by: Maria Guadalupe Richardson On 12/19/2019 20:32:55 PM
[2019-12-19 21:01] VITALS: BP 134/58
[2019-12-20 06:37] VITALS: BP 125/55
--- NOTE | 2019-12-20 08:49 | MHIPNPDOC ---
[facility] Progress Note Progress Note Bre Drake Inpatient Progress Note Bre Drake Select Gender MRN: N/A Date of : MM/DD/YYYY Date of Service: 12/20/2019 History of Present Illness 84-year-old woman with a history of depression and possible cluster B personality traits presents initially with concerns of suicidality, however, she clarifies that she was not suicidal although she reports being extremely depressed. Interval History Narrative: The patient is met within the group setting. She reports feeling sore from a fall last night and still feels depressed and anxious. Affective: The patient still reports low mood, loss of interest and concentration problems. Psychotic: The patient denies any. Anxiety: The patient still has significant worry about her situation once she leaves Eating and sleeping behaviors: Improving, patient still has poor appetite and difficult sleeping due to roommate. Group Attendance: Attends infrequently. Medication Side effects: See ROS below Behavioral problems/significant events overnight: The patient had a fall, CT scan normal. Staff Report: The patient generally amenable, although, does appear to have some attention-seeking behaviors. Review Of Systems General: Reports improved appetite. Denies fevers. Cardiovascular: Denies Chest pain or palpations GI: Denies Nausea, vomiting, or bowel changes Respiratory: Denies shortness of breath or cough Neuro: Denies dizziness, tremors Derm: Denies any rashes or pruritus : Denies any dysuria or urinary problems MSK: Some stiffness and soreness after fall. HEENT: Denies any vision changes or headaches Psychotherapy None on this visit. Vital Signs Reviewed. Mental Status Examination General: Well dressed with good hygiene Speech: Spontaneous and fluid Thought processes: Linear and logical MSK: The patient has some slowing with some gait instability. Thought content: Hopeless Abstract reasoning, and computation: Intact Description of associations: Intact Description of abnormal or psychotic thoughts: Denies any suicidal or homicidal ideation. Denies any auditory or visual hallucinations. Does not appear to be responding to internal stimuli. Does not appear to be endorsing any bizarre or paranoid ideation. Judgment: fair Insight: fair Orientation: Alert and orientated 3 Cognition: Grossly normal Recent and remote memory: Intact Attention span and concentration: Intact Fund of knowledge: Adequate Mood: "depressed" Affect: Patient profoundly dysthymic with a constricted range. Diagnoses Major depressive disorder, recurrent, moderate to severe. Cluster B personality traits/borderline personality disorder. Assessment and Plan Major depressive disorder: Continue BuSpar and sertraline as well as Rozerem, will monitor if need augmentation. Cluster B personality traits: Will attempt to prevent staff splitting and reduce attention seeking behaviors. Disposition The patient will need a further inpatient admission in order to treat her severe depression that impairs her ability to eat with significant psycho motor and neurovegetative symptoms present. Time Spent 15 minutes. Vital Signs Vital Signs Date Time Temp Pulse Resp B/P (MAP) Pulse Ox O2 Delivery O2 Flow Rate FiO2 12/20/19 06:37 97.4 67 18 125/55 (78) 12/19/19 08:19 Room Air 12/17/19 17:39 95 Current Medications Current Medications Medications (Trade) Dose Ordered Sig/Nelly Route PRN Reason Start Time Stop Time Status Last Admin Dose Admin Acetaminophen (Tylenol Tab) 650 mg Q6HP PRN PO HEADACHE or DISCOMFORT 12/17/19 16:00 12/17/19 16:18 DC Acetaminophen (Tylenol Tab) 1,000 mg TIDP PRN PO PAIN / FEVER 12/17/19 16:15 12/18/19 04:38 Al Hydrox/Mg Hydrox/Simethicone (Mylanta) 30 ml Q4HP PRN PO HEARTBURN/INDIGESTION 12/17/19 16:00 12/19/19 03:36 Albuterol Sulfate (Proventil, Ventolin Hfa) 2 puff QIDP PRN INH SHORTNESS OF BREATH 12/17/19 16:15 Aspirin (Ecotrin) 81 mg DAILY PO 12/18/19 09:00 12/19/19 10:15 Atorvastatin Calcium (Lipitor) 10 mg QHS PO 12/17/19 21:00 12/19/19 20:31 Buspirone HCl (Buspar) 30 mg BID PO 12/17/19 21:00 12/19/19 20:32 Cyanocobalamin (Vitamin B12) 500 mcg DAILY PO 12/18/19 09:00 12/19/19 10:16 Home Med (Med Rec Complete!) ASDIRECTED XX 12/17/19 16:15 12/17/19 16:15 DC Magnesium Hydroxide (Milk Of Magnesia) 30 ml DAILYPRN PRN PO CONSTIPATION 12/17/19 16:00 12/19/19 14:37 Olmesartan (Benicar) 5 mg DAILY PO 12/18/19 09:00 12/19/19 12:15 Ramelteon (Rozerem) 8 mg QHS PO 12/19/19 21:00 12/19/19 20:31 Sertraline HCl (Zoloft) 50 mg QHS PO 12/17/19 21:00 12/18/19 13:57 DC 12/17/19 20:17 Sertraline HCl (Zoloft) 100 mg QHS PO 12/18/19 21:00 12/19/19 20:31 Trazodone HCl (Desyrel) 50 mg QHSP PRN PO INSOMNIA 12/17/19 16:00 12/19/19 13:17 DC Allergies Coded Allergies: Penicillins (Verified Allergy, Intermediate, HIVES, 08/27/19) FADI LAI DO Dec 20, 2019 08:49
[2019-12-20] MEDS: ASPIRIN 81 MG ENTERIC TAB PO SCH (09:28)
[2019-12-20] MEDS: CYANOCOBALAMIN 500 MCG TAB PO SCH (09:28)
[2019-12-20] MEDS: ACETAMINOPHEN 500 MG TAB PO PRN (09:28)
[2019-12-20] MEDS: busPIRone 10 MG TAB PO SCH ×2 (09:28→20:25)
[2019-12-20] MEDS: OLMESARTAN MEDOXOMIL 20 MG TAB (BENICAR) PO SCH (09:29)
[2019-12-20 18:03] VITALS: BP 97/49
[2019-12-20] MEDS: ATORVASTATIN 10 MG TAB PO SCH (20:25)
[2019-12-20] MEDS: SERTRALINE 100 MG TAB PO SCH (20:25)
[2019-12-20] MEDS: RAMELTEON 8 MG TAB (ROZEREM) PO SCH (20:25)
[2019-12-21] MEDS: ACETAMINOPHEN 500 MG TAB PO PRN ×2 (04:58→20:41)
[2019-12-21 06:27] VITALS: BP 101/54
--- NOTE | 2019-12-21 09:13 | MHIPNPDOC ---
[facility] Progress Note Progress Note Bre Drake Inpatient Progress Note Bre Drake Select Gender MRN: N/A Date of : MM/DD/YYYY Date of Service: 12/21/2019 History of Present Illness 84-year-old woman with a history of depression and possible cluster B personality traits presents initially with concerns of suicidality, however, she clarifies that she was not suicidal although she reports being extremely depressed. Interval History Narrative: The patient is met with solo. She reports feeling still depressed Affective: The patient still reports low mood, loss of interest and concentration problems. Psychotic: The patient denies any. Anxiety: The patient still has significant worry about her situation once she le aves Eating and sleeping behaviors: Improving, patient still has poor appetite and difficult sleeping due to roommate. Group Attendance: Attends infrequently. Medication Side effects: See ROS below Behavioral problems/significant events overnight: none Staff Report: The patient generally amenable, although, does appear to have some attention-seeking behaviors. Review Of Systems General: Reports improved appetite. Denies fevers. Cardiovascular: Denies Chest pain or palpations GI: Denies Nausea, vomiting, or bowel changes Respiratory: Denies shortness of breath or cough Neuro: Denies dizziness, tremors Derm: Denies any rashes or pruritus : Denies any dysuria or urinary problems MSK: Some stiffness and soreness after fall. HEENT: Denies any vision changes or headaches Psychotherapy None on this visit. Vital Signs Reviewed. Mental Status Examination General: Well dressed with good hygiene Speech: Spontaneous and fluid Thought processes: Linear and logical MSK: The patient has some slowing with some gait instability. Thought content: Hopeless Abstract reasoning, and computation: Intact Description of associations: Intact Description of abnormal or psychotic thoughts: Denies any suicidal or homicidal ideation. Denies any auditory or visual hallucinations. Does not appear to be responding to internal stimuli. Does not appear to be endorsing any bizarre or paranoid ideation. Judgment: fair Insight: fair Orientation: Alert and orientated 3 Cognition: Grossly normal Recent and remote memory: Intact Attention span and concentration: Intact Fund of knowledge: Adequate Mood: "depressed" Affect: Patient profoundly dysthymic with a constricted range. Diagnoses Major depressive disorder, recurrent, moderate to severe. Cluster B personality traits/borderline personality disorder. Assessment and Plan Major depressive disorder: Continue BuSpar and sertraline as well as Rozerem, will add wellbutrin 150mg xl daily, no eating disorders or sz present, discussed risks, benifits and potential side effects with patient as well as alternatives Cluster B personality traits: Will attempt to prevent staff splitting and reduce attention seeking behaviors. Disposition The patient will need a further inpatient admission in order to treat her severe depression that impairs her ability to eat with significant psycho motor and neurovegetative symptoms present. Time Spent 15 minutes Vital Signs Vital Signs Date Time Temp Pulse Resp B/P (MAP) Pulse Ox O2 Delivery O2 Flow Rate FiO2 12/21/19 06:27 97.6 58 18 101/54 (70) 12/19/19 08:19 Room Air 12/17/19 17:39 95 Current Medications Current Medications Medications (Trade) Dose Ordered Sig/Nelly Route PRN Reason Start Time Stop Time Status Last Admin Dose Admin Acetaminophen (Tylenol Tab) 650 mg Q6HP PRN PO HEADACHE or DISCOMFORT 12/17/19 16:00 12/17/19 16:18 DC Acetaminophen (Tylenol Tab) 1,000 mg TIDP PRN PO PAIN / FEVER 12/17/19 16:15 12/21/19 04:58 Al Hydrox/Mg Hydrox/Simethicone (Mylanta) 30 ml Q4HP PRN PO HEARTBURN/INDIGESTION 12/17/19 16:00 12/19/19 03:36 Albuterol Sulfate (Proventil, Ventolin Hfa) 2 puff QIDP PRN INH SHORTNESS OF BREATH 12/17/19 16:15 Aspirin (Ecotrin) 81 mg DAILY PO 12/18/19 09:00 12/20/19 09:28 Atorvastatin Calcium (Lipitor) 10 mg QHS PO 12/17/19 21:00 12/20/19 20:25 Buspirone HCl (Buspar) 30 mg BID PO 12/17/19 21:00 12/20/19 20:25 Cyanocobalamin (Vitamin B12) 500 mcg DAILY PO 12/18/19 09:00 12/20/19 09:28 Home Med (Med Rec Complete!) ASDIRECTED XX 12/17/19 16:15 12/17/19 16:15 DC Magnesium Hydroxide (Milk Of Magnesia) 30 ml DAILYPRN PRN PO CONSTIPATION 12/17/19 16:00 12/19/19 14:37 Olmesartan (Benicar) 5 mg DAILY PO 12/18/19 09:00 12/20/19 09:29 Ramelteon (Rozerem) 8 mg QHS PO 12/19/19 21:00 12/20/19 20:25 Sertraline HCl (Zoloft) 50 mg QHS PO 12/17/19 21:00 12/18/19 13:57 DC 12/17/19 20:17 Sertraline HCl (Zoloft) 100 mg QHS PO 12/18/19 21:00 12/20/19 20:25 Trazodone HCl (Desyrel) 50 mg QHSP PRN PO INSOMNIA 12/17/19 16:00 12/19/19 13:17 DC Allergies Coded Allergies: Penicillins (Verified Allergy, Intermediate, HIVES, 08/27/19) FADI LAI DO Dec 21, 2019 09:13
[2019-12-21] MEDS: CYANOCOBALAMIN 500 MCG TAB PO SCH (09:30)
[2019-12-21] MEDS: ASPIRIN 81 MG ENTERIC TAB PO SCH (09:30)
[2019-12-21] MEDS: busPIRone 10 MG TAB PO SCH ×2 (09:30→20:33)
[2019-12-21] MEDS: OLMESARTAN MEDOXOMIL 20 MG TAB (BENICAR) PO SCH (10:49)
[2019-12-21] MEDS ORDERED: buPROPion **XL** TABLET 150MG (WELLBUTRIN XL) PO ONE (12:15)
[2019-12-21 16:00] VITALS: BP 110/57
[2019-12-21] MEDS: SERTRALINE 100 MG TAB PO SCH (20:33)
[2019-12-21] MEDS: RAMELTEON 8 MG TAB (ROZEREM) PO SCH (20:33)
[2019-12-21] MEDS: ATORVASTATIN 10 MG TAB PO SCH (20:33)
[2019-12-22 06:43] VITALS: BP 134/61
[2019-12-22] MEDS: MAALOX 30 ML SUSP *UDC PO PRN (07:08)
[2019-12-22] MEDS: buPROPion **XL** TABLET 150MG (WELLBUTRIN XL) PO SCH (09:06)
[2019-12-22] MEDS: CYANOCOBALAMIN 500 MCG TAB PO SCH (09:07)
[2019-12-22] MEDS: ASPIRIN 81 MG ENTERIC TAB PO SCH (09:07)
[2019-12-22] MEDS: busPIRone 10 MG TAB PO SCH ×2 (09:07→20:38)
[2019-12-22] MEDS: OLMESARTAN MEDOXOMIL 20 MG TAB (BENICAR) PO SCH (09:14)
[2019-12-22 16:17] VITALS: BP 117/51
[2019-12-22] MEDS: ATORVASTATIN 10 MG TAB PO SCH (20:38)
[2019-12-22] MEDS: RAMELTEON 8 MG TAB (ROZEREM) PO SCH (20:38)
[2019-12-22] MEDS: SERTRALINE 100 MG TAB PO SCH (20:38)
[2019-12-23] MEDS: ACETAMINOPHEN 500 MG TAB PO PRN (01:12)
[2019-12-23] MEDS: MAALOX 30 ML SUSP *UDC PO PRN (01:13)
[2019-12-23 06:50] VITALS: BP 147/67
[2019-12-23] MEDS: ASPIRIN 81 MG ENTERIC TAB PO SCH (08:53)
[2019-12-23] MEDS: buPROPion **XL** TABLET 150MG (WELLBUTRIN XL) PO SCH (08:53)
[2019-12-23] MEDS: CYANOCOBALAMIN 500 MCG TAB PO SCH (08:53)
[2019-12-23] MEDS: busPIRone 10 MG TAB PO SCH ×2 (08:53→20:14)
[2019-12-23] MEDS: OLMESARTAN MEDOXOMIL 20 MG TAB (BENICAR) PO SCH (09:02)
[2019-12-23 16:12] VITALS: BP 101/50
[2019-12-23] MEDS: ATORVASTATIN 10 MG TAB PO SCH (20:14)
[2019-12-23] MEDS: RAMELTEON 8 MG TAB (ROZEREM) PO SCH (20:14)
[2019-12-23] MEDS: SERTRALINE 100 MG TAB PO SCH (20:14)
[2019-12-24 06:32] VITALS: BP 132/63
[2019-12-24] MEDS: busPIRone 10 MG TAB PO SCH ×2 (09:20→20:07)
[2019-12-24] MEDS: PILL CUTTER 1 EACH XX PRN ×2 (09:20→20:06)
[2019-12-24] MEDS: CYANOCOBALAMIN 500 MCG TAB PO SCH (09:20)
[2019-12-24] MEDS: buPROPion **XL** TABLET 150MG (WELLBUTRIN XL) PO SCH (09:20)
[2019-12-24] MEDS: ASPIRIN 81 MG ENTERIC TAB PO SCH (09:22)
[2019-12-24] MEDS: OLMESARTAN MEDOXOMIL 20 MG TAB (BENICAR) PO SCH (09:22)
--- NOTE | 2019-12-24 10:28 | MHIPNPDOC ---
[facility] Progress Note Progress Note Inpatient Progress Note Bre Drake MRN: N/A Date of : N/A Date of Service: 12/24/2019 History of Present Illness 84-year-old woman with a history of depression and possible cluster B personality traits presents initially with concerns of suicidality, however, she clarifies that she was not suicidal although she reports being extremely depressed. Interval History Narrative: The patient is met with today. She reports feeling more depressed and anxious. Affective: The patient still reports low mood, loss of interest and concentration problems. Psychotic: The patient denies any. Anxiety: The patient still has significant worry about her situation once she leaves Eating and sleeping behaviors: Improving, patient still has poor appetite and difficult sleeping due to roommate. Group Attendance: Attends infrequently. Medication Side effects: See ROS below Behavioral problems/significant events overnight: None reported. Staff Report: The patient generally stays in her room, rarely gets up and does not engage with others. Review Of Systems General: Reports improved appetite. Denies fevers. Cardiovascular: Denies Chest pain or palpations GI: Denies Nausea, vomiting, or bowel changes Respiratory: Denies shortness of breath or cough Neuro: Denies dizziness, tremors Derm: Denies any rashes or pruritus : Denies any dysuria or urinary problems MSK: Some stiffness and soreness after fall. HEENT: Denies any vision changes or headaches Psychotherapy None on this visit. Vital Signs Reviewed. Mental Status Examination General: Well dressed with good hygiene Speech: Spontaneous and fluid Thought processes: Linear and logical MSK: The patient has some slowing with some gait instability. Thought content: Hopeless Abstract reasoning, and computation: Intact Description of associations: Intact Description of abnormal or psychotic thoughts: Denies any suicidal or homicidal ideation. Denies any auditory or visual hallucinations. Does not appear to be responding to internal stimuli. Does not appear to be endorsing any bizarre or paranoid ideation. Judgment: fair Insight: fair Orientation: Alert and orientated 3 Cognition: Grossly normal Recent and remote memory: Intact Attention span and concentration: Intact Fund of knowledge: Adequate Mood: "depressed" Affect: Patient profoundly dysthymic with a constricted range. Diagnoses Major depressive disorder, recurrent, moderate to severe. Cluster B personality traits/borderline personality disorder. Assessment and Plan Major depressive disorder: Discontinue Wellbutrin as unhelpful. We will cross taper BuSpar and sertraline with Effexor, starting tomorrow. Cluster B personality traits: Will attempt to prevent staff splitting and reduce attention seeking behaviors. Disposition The patient will need a further inpatient admission in order to treat her severe depression that impairs her ability to eat with significant psychomotor and neurovegetative symptoms present. Time Spent 15 minutes Tuesday Vital Signs Vital Signs Date Time Temp Pulse Resp B/P (MAP) Pulse Ox O2 Delivery O2 Flow Rate FiO2 12/24/19 09:22 140/86 12/24/19 06:32 97.0 73 16 12/23/19 09:23 Room Air Current Medications Current Medications Medications (Trade) Dose Ordered Sig/Nelly Route PRN Reason Start Time Stop Time Status Last Admin Dose Admin Acetaminophen (Tylenol Tab) 650 mg Q6HP PRN PO HEADACHE or DISCOMFORT 12/17/19 16:00 12/17/19 16:18 DC Acetaminophen (Tylenol Tab) 1,000 mg TIDP PRN PO PAIN / FEVER 12/17/19 16:15 12/23/19 01:12 Al Hydrox/Mg Hydrox/Simethicone (Mylanta) 30 ml Q4HP PRN PO HEARTBURN/INDIGESTION 12/17/19 16:00 12/23/19 01:13 Albuterol Sulfate (Proventil, Ventolin Hfa) 2 puff QIDP PRN INH SHORTNESS OF BREATH 12/17/19 16:15 Aspirin (Ecotrin) 81 mg DAILY PO 12/18/19 09:00 12/24/19 09:22 Atorvastatin Calcium (Lipitor) 10 mg QHS PO 12/17/19 21:00 12/23/19 20:14 Bupropion HCl (Wellbutrin Xl) 150 mg DAILY PO 12/22/19 09:00 12/24/19 09:20 Buspirone HCl (Buspar) 30 mg BID PO 12/17/19 21:00 12/24/19 09:20 Cyanocobalamin (Vitamin B12) 500 mcg DAILY PO 12/18/19 09:00 12/24/19 09:20 Home Med (Med Rec Complete!) ASDIRECTED XX 12/17/19 16:15 12/17/19 16:15 DC Magnesium Hydroxide (Milk Of Magnesia) 30 ml DAILYPRN PRN PO CONSTIPATION 12/17/19 16:00 12/19/19 14:37 Olmesartan (Benicar) 5 mg DAILY PO 12/18/19 09:00 12/24/19 09:22 Ramelteon (Rozerem) 8 mg QHS PO 12/19/19 21:00 12/23/19 20:14 Sertraline HCl (Zoloft) 50 mg QHS PO 12/17/19 21:00 12/18/19 13:57 DC 12/17/19 20:17 Sertraline HCl (Zoloft) 100 mg QHS PO 12/18/19 21:00 12/23/19 20:14 Trazodone HCl (Desyrel) 50 mg QHSP PRN PO INSOMNIA 12/17/19 16:00 12/19/19 13:17 DC Allergies Coded Allergies: Penicillins (Verified Allergy, Intermediate, HIVES, 08/27/19) FADI LAI DO Dec 24, 2019 10:28
[2019-12-24] MEDS: VENLAFAXINE **XR** 37.5 MG CAPSULE PO SCH (12:44)
[2019-12-24 16:21] VITALS: BP 140/60
[2019-12-24] MEDS: ATORVASTATIN 10 MG TAB PO SCH (20:05)
[2019-12-24] MEDS: RAMELTEON 8 MG TAB (ROZEREM) PO SCH (20:06)
[2019-12-24] MEDS ORDERED: SERTRALINE 100 MG TAB PO SCH (21:00)
[2019-12-25 06:38] VITALS: BP 125/57
[2019-12-25] MEDS: ASPIRIN 81 MG ENTERIC TAB PO SCH (09:43)
[2019-12-25] MEDS: VENLAFAXINE **XR** 37.5 MG CAPSULE PO SCH (09:43)
[2019-12-25] MEDS: busPIRone 10 MG TAB PO SCH (09:43)
[2019-12-25] MEDS: PILL CUTTER 1 EACH XX PRN ×2 (09:43→10:49)
[2019-12-25] MEDS: CYANOCOBALAMIN 500 MCG TAB PO SCH (09:43)
[2019-12-25] MEDS: ACETAMINOPHEN 500 MG TAB PO PRN (09:45)
[2019-12-25] MEDS: OLMESARTAN MEDOXOMIL 20 MG TAB (BENICAR) PO SCH (10:49)
--- NOTE | 2019-12-25 10:54 | MHIPNPDOC ---
[facility] Progress Note Progress Note Inpatient Progress Note Bre Drake MRN: N/A Date of : N/A Date of Service: 12/25/2019 History of Present Illness 84-year-old woman with a history of depression and possible cluster B personality traits presents initially with concerns of suicidality, however, she clarifies that she was not suicidal although she reports being extremely depressed. Interval History The patient is met with today. She continues to report various somatic complaints. She has not attended groups, and generally stays in her room with little variation. The patient per staff is generally unengaged. She appears quite codependent with her roommate at this time. She reports that she feels nauseous on her new medications and wishes it to be stopped. When her room was moved later in the day, she was fairly upset about this, asking to be placed back with the same roommate. However, she also complains that the roommate keeps her up at night. She reports that her sleep has been continued to be disrupted. Review Of Systems General: Reports improved appetite. Denies fevers. Cardiovascular: Denies Chest pain or palpations GI: As above. Respiratory: Denies shortness of breath or cough Neuro: Denies dizziness, tremors Derm: Denies any rashes or pruritus : Denies any dysuria or urinary problems MSK: Some stiffness and soreness after fall. HEENT: Denies any vision changes or headaches. Psychotherapy None on this visit. Vital Signs Reviewed. Mental Status Examination General: Well dressed with good hygiene Speech: Spontaneous and fluid Thought processes: Linear and logical MSK: The patient has some slowing with some gait instability. Thought content: Hopeless Abstract reasoning, and computation: Intact Description of associations: Intact Description of abnormal or psychotic thoughts: Denies any suicidal or homicidal ideation. Denies any auditory or visual hallucinations. Does not appear to be responding to internal stimuli. Does not appear to be endorsing any bizarre or p aranoid ideation. Judgment: fair Insight: fair Orientation: Alert and orientated 3 Cognition: Grossly normal Recent and remote memory: Intact Attention span and concentration: Intact Fund of knowledge: Adequate Mood: "depressed" Affect: Patient profoundly dysthymic with a constricted range. Diagnoses Major depressive disorder, recurrent, moderate to severe. Cluster B personality traits/borderline personality disorder. Assessment and Plan Major depressive disorder: We'll discontinue Effexor, as patient had side effects. We'll continue to discontinue BuSpar. We'll increase sertraline back to 100 mg daily, augmentation with Abilify 2 mg nightly. Discussed the risks, benefits and potential side effects with patient as well as alternatives. Cluster B personality traits: Will attempt to prevent staff splitting and reduce attention seeking behaviors. Disposition The patient will need a further inpatient admission in order to treat her severe depression that impairs her ability to eat with significant psychomotor and neurovegetative symptoms present. Time Spent 15 minutes. Tuesday Vital Signs Vital Signs Date Time Temp Pulse Resp B/P (MAP) Pulse Ox O2 Delivery O2 Flow Rate FiO2 12/25/19 06:38 97.8 75 16 125/57 (79) Room Air Current Medications Current Medications Medications (Trade) Dose Ordered Sig/Nelly Route PRN Reason Start Time Stop Time Status Last Admin Dose Admin Acetaminophen (Tylenol Tab) 650 mg Q6HP PRN PO HEADACHE or DISCOMFORT 12/17/19 16:00 12/17/19 16:18 DC Acetaminophen (Tylenol Tab) 1,000 mg TIDP PRN PO PAIN / FEVER 12/17/19 16:15 12/25/19 09:45 Al Hydrox/Mg Hydrox/Simethicone (Mylanta) 30 ml Q4HP PRN PO HEARTBURN/INDIGESTION 12/17/19 16:00 12/23/19 01:13 Albuterol Sulfate (Proventil, Ventolin Hfa) 2 puff QIDP PRN INH SHORTNESS OF BREATH 12/17/19 16:15 Aspirin (Ecotrin) 81 mg DAILY PO 12/18/19 09:00 12/25/19 09:43 Atorvastatin Calcium (Lipitor) 10 mg QHS PO 12/17/19 21:00 12/24/19 20:05 Bupropion HCl (Wellbutrin Xl) 150 mg DAILY PO 12/22/19 09:00 12/24/19 12:27 DC 12/24/19 09:20 Buspirone HCl (Buspar) 15 mg BID PO 12/24/19 21:00 12/25/19 09:43 Buspirone HCl (Buspar) 30 mg BID PO 12/17/19 21:00 12/24/19 12:27 DC 12/24/19 09:20 Cyanocobalamin (Vitamin B12) 500 mcg DAILY PO 12/18/19 09:00 12/25/19 09:43 Home Med (Med Rec Complete!) ASDIRECTED XX 12/17/19 16:15 12/17/19 16:15 DC Magnesium Hydroxide (Milk Of Magnesia) 30 ml DAILYPRN PRN PO CONSTIPATION 12/17/19 16:00 12/19/19 14:37 Olmesartan (Benicar) 5 mg DAILY PO 12/18/19 09:00 12/24/19 09:22 Ramelteon (Rozerem) 8 mg QHS PO 12/19/19 21:00 12/24/19 20:06 Sertraline HCl (Zoloft) 50 mg QHS PO 12/17/19 21:00 12/18/19 13:57 DC 12/17/19 20:17 Sertraline HCl (Zoloft) 50 mg QHS PO 12/24/19 21:00 12/24/19 20:06 Sertraline HCl (Zoloft) 100 mg QHS PO 12/18/19 21:00 12/24/19 12:27 DC 12/23/19 20:14 Trazodone HCl (Desyrel) 50 mg QHSP PRN PO INSOMNIA 12/17/19 16:00 12/19/19 13:17 DC Venlafaxine HCl (Effexor Xr) 37.5 mg DAILY PO 12/24/19 09:00 12/25/19 09:43 Allergies Coded Allergies: Penicillins (Verified Allergy, Intermediate, HIVES, 08/27/19) FADI LAI DO Dec 25, 2019 10:54
[2019-12-25] MEDS: MAALOX 30 ML SUSP *UDC PO PRN (12:31)
[2019-12-25 16:07] VITALS: BP 131/59
[2019-12-25] MEDS: ATORVASTATIN 10 MG TAB PO SCH (20:03)
[2019-12-25] MEDS: RAMELTEON 8 MG TAB (ROZEREM) PO SCH (20:04)
[2019-12-25] MEDS: SERTRALINE 100 MG TAB PO SCH (20:04)
[2019-12-25] MEDS: ARIPiprazole 2 MG TAB PO SCH (20:04)
[2019-12-26 06:32] VITALS: BP 130/63
[2019-12-26] MEDS: PILL CUTTER 1 EACH XX PRN (09:23)
[2019-12-26] MEDS: ASPIRIN 81 MG ENTERIC TAB PO SCH (09:23)
[2019-12-26] MEDS: CYANOCOBALAMIN 500 MCG TAB PO SCH (09:23)
[2019-12-26] MEDS: OLMESARTAN MEDOXOMIL 20 MG TAB (BENICAR) PO SCH (09:23)
--- NOTE | 2019-12-26 10:30 | MHIPNPDOC ---
[facility] Progress Note Progress Note Inpatient Progress Note Bre Drake MRN: N/A Date of : N/A Date of Service: 12/26/2019 History of Present Illness 84-year-old woman with a history of depression and possible cluster B personality traits presents initially with concerns of suicidality, however, she clarifies that she was not suicidal although she reports being extremely depressed. Interval History The patient was met with today. She has been going to more groups and is becoming more social. She has initially been resistant to changing her room and becoming more engaged. However, when I met with her, she reported that her depression and anxiety were starting to lift. She reports she was tolerating the medication well and that she was feeling more engaged. She is currently being linked with more services so that she will feel more supported. She continues to worry about her situation with her family. Her low mood and concentration have improved. She has had no major behavioral problems overnight and otherwise does well, per staff. Review Of Systems General: Reports improved appetite. Denies fevers. Cardiovascular: Denies Chest pain or palpations GI: As above. Respiratory: Denies shortness of breath or cough Neuro: Denies dizziness, tremors Derm: Denies any rashes or pruritus : Denies any dysuria or urinary problems MSK: Reports some neck stiffness that's chronic, other stiffness has resolved. HEENT: Denies any vision changes or headaches. Psychotherapy None on this visit. Vital Signs Reviewed. Mental Status Examination General: Well dressed with good hygiene Speech: Spontaneous and fluid Thought processes: Linear and logical MSK: The patient has some slowing with some gait instability. Thought content: Less hopelessness Abstract reasoning, and computation: Intact Description of associations: Intact Description of abnormal or psychotic thoughts: Denies any suicidal or homicidal ideation. Denies any auditory or visual hallucinations. Does not appear to be responding to internal stimuli. Does not appear to be endorsing any bizarre or paranoid ideation. Judgment: fair Insight: fair Orientation: Alert and orientated 3 Cognition: Grossly normal Recent and remote memory: Intact Attention span and concentration: Intact Fund of knowledge: Adequate Mood: "okay" Affect: More euthymic and more reactive Diagnoses Major depressive disorder, recurrent, [id number]. Cluster B personality traits/borderline personality disorder. Assessment and Plan Major depressive disorder: Continue sertraline 100 mg daily with 2 mg of Abilify, patient tolerating that well. Cluster B personality traits: Will attempt to prevent staff splitting and reduce attention seeking behaviors. Disposition The patient will need to be retained on a further admission in order to titrate her meds to full effect, she has multiple risk factors that would likely precipitate another admission, including loneliness and difficulty with socialization. A family meeting may help assure an effective and safe discharge. Time Spent 15 minutes. Tuesday Vital Signs Vital Signs Date Time Temp Pulse Resp B/P (MAP) Pulse Ox O2 Delivery O2 Flow Rate FiO2 12/26/19 09:23 134/70 12/26/19 06:32 98.6 70 18 12/25/19 11:02 Room Air Current Medications Current Medications Medications (Trade) Dose Ordered Sig/Nelly Route PRN Reason Start Time Stop Time Status Last Admin Dose Admin Acetaminophen (Tylenol Tab) 650 mg Q6HP PRN PO HEADACHE or DISCOMFORT 12/17/19 16:00 12/17/19 16:18 DC Acetaminophen (Tylenol Tab) 1,000 mg TIDP PRN PO PAIN / FEVER 12/17/19 16:15 12/25/19 09:45 Al Hydrox/Mg Hydrox/Simethicone (Mylanta) 30 ml Q4HP PRN PO HEARTBURN/INDIGESTION 12/17/19 16:00 12/25/19 12:31 Albuterol Sulfate (Proventil, Ventolin Hfa) 2 puff QIDP PRN INH SHORTNESS OF BREATH 12/17/19 16:15 Aripiprazole (AbiLIFY) 2 mg QHS PO 12/25/19 21:00 12/25/19 20:04 Aspirin (Ecotrin) 81 mg DAILY PO 12/18/19 09:00 12/26/19 09:23 Atorvastatin Calcium (Lipitor) 10 mg QHS PO 12/17/19 21:00 12/25/19 20:03 Bupropion HCl (Wellbutrin Xl) 150 mg DAILY PO 12/22/19 09:00 12/24/19 12:27 DC 12/24/19 09:20 Buspirone HCl (Buspar) 15 mg BID PO 12/24/19 21:00 12/25/19 13:37 DC 12/25/19 09:43 Buspirone HCl (Buspar) 30 mg BID PO 12/17/19 21:00 12/24/19 12:27 DC 12/24/19 09:20 Cyanocobalamin (Vitamin B12) 500 mcg DAILY PO 12/18/19 09:00 12/26/19 09:23 Home Med (Med Rec Complete!) ASDIRECTED XX 12/17/19 16:15 12/17/19 16:15 DC Magnesium Hydroxide (Milk Of Magnesia) 30 ml DAILYPRN PRN PO CONSTIPATION 12/17/19 16:00 12/19/19 14:37 Olmesartan (Benicar) 5 mg DAILY PO 12/18/19 09:00 12/26/19 09:23 Ramelteon (Rozerem) 8 mg QHS PO 12/19/19 21:00 12/25/19 20:04 Sertraline HCl (Zoloft) 50 mg QHS PO 12/17/19 21:00 12/18/19 13:57 DC 12/17/19 20:17 Sertraline HCl (Zoloft) 50 mg QHS PO 12/24/19 21:00 12/25/19 13:37 DC 12/24/19 20:06 Sertraline HCl (Zoloft) 100 mg QHS PO 12/18/19 21:00 12/24/19 12:27 DC 12/23/19 20:14 Sertraline HCl (Zoloft) 100 mg QHS PO 12/25/19 21:00 12/25/19 20:04 Trazodone HCl (Desyrel) 50 mg QHSP PRN PO INSOMNIA 12/17/19 16:00 12/19/19 13:17 DC Venlafaxine HCl (Effexor Xr) 37.5 mg DAILY PO 12/24/19 09:00 12/25/19 12:22 DC 12/25/19 09:43 Allergies Coded Allergies: Penicillins (Verified Allergy, Intermediate, HIVES, 08/27/19) FADI LAI DO Dec 26, 2019 10:30
[2019-12-26] MEDS: ACETAMINOPHEN 500 MG TAB PO PRN ×2 (14:41→20:06)
[2019-12-26 16:27] VITALS: BP 118/67
[2019-12-26] MEDS: ARIPiprazole 2 MG TAB PO SCH (20:07)
[2019-12-26] MEDS: SERTRALINE 100 MG TAB PO SCH (20:07)
[2019-12-26] MEDS: ATORVASTATIN 10 MG TAB PO SCH (20:07)
[2019-12-27 07:16] VITALS: BP 100/53
[2019-12-27] MEDS: ASPIRIN 81 MG ENTERIC TAB PO SCH (08:14)
[2019-12-27] MEDS: CYANOCOBALAMIN 500 MCG TAB PO SCH (08:14)
--- NOTE | 2019-12-27 08:42 | MHIPNPDOC ---
[facility] Progress Note Progress Note Inpatient Progress Note Bre Drake MRN: N/A Date of : N/A Date of Service: 12/27/2019 History of Present Illness 84-year-old woman with a history of depression and possible cluster B personality traits presents initially with concerns of suicidality, however, she clarifies that she was not suicidal although she reports being extremely depressed. Interval History The patient is met with today. She reports she had a good experience with her daughter. She further reports that she feels much improved from her depression. She reports she is attending more groups and noticeably more social. Staff reports the patient is more social and amenable. She reports she was a bit sleepy today as there was an incident last night that kept her up. However, she reports that she is doing well. Review Of Systems General: Reports improved appetite. Denies fevers. Cardiovascular: Denies Chest pain or palpitations GI: As above. Respiratory: Denies shortness of breath or cough Neuro: Denies dizziness, tremors Derm: Denies any rashes or pruritus : Denies any dysuria or urinary problems MSK: Stiff neck resolved with lidocaine patch. HEENT: Denies any vision changes or headaches. Psychotherapy None on this visit. Vital Signs Reviewed. Mental Status Examination General: Well dressed with good hygiene Speech: Spontaneous and fluid Thought processes: Linear and logical MSK: The patient has some slowing with some gait instability. Thought content: Less hopelessness Abstract reasoning, and computation: Intact Description of associations: Intact Description of abnormal or psychotic thoughts: Denies any suicidal or homicidal ideation. Denies any auditory or visual hallucinations. Does not appear to be responding to internal stimuli. Does not appear to be endorsing any bizarre or paranoid ideation. Judgment: fair Insight: fair Orientation: Alert and orientated 3 Cognition: Grossly normal Recent and remote memory: Intact Attention span and concentration: Intact Fund of knowledge: Adequate Mood: "okay" Affect: More euthymic and more reactive Diagnoses Major depressive disorder, recurrent, [id number]. Cluster B personality traits/borderline personality disorder. Major depressive disorder, recurrent, [id number]. Cluster B personality traits/borderline personality disorder. Assessment and Plan Major depressive disorder: Continue sertraline 100 mg daily with 2 mg of Abilify, patient tolerating that well. Cluster B personality traits: Will attempt to prevent staff splitting and reduce attention seeking behaviors. Disposition The patient will need to be retained on a further admission in order to titrate her meds to full effect, she has multiple risk factors that would likely precipitate another admission, including loneliness and difficulty with socialization. A family meeting may help assure an effective and safe discharge. Time Spent 15 minutes. Vital Signs Vital Signs Date Time Temp Pulse Resp B/P (MAP) Pulse Ox O2 Delivery O2 Flow Rate FiO2 12/27/19 07:16 99.2 73 16 100/53 (69) 12/25/19 11:02 Room Air Current Medications Current Medications Medications (Trade) Dose Ordered Sig/Nelly Route PRN Reason Start Time Stop Time Status Last Admin Dose Admin Acetaminophen (Tylenol Tab) 650 mg Q6HP PRN PO HEADACHE or DISCOMFORT 12/17/19 16:00 12/17/19 16:18 DC Acetaminophen (Tylenol Tab) 1,000 mg TIDP PRN PO PAIN / FEVER 12/17/19 16:15 12/26/19 20:06 Al Hydrox/Mg Hydrox/Simethicone (Mylanta) 30 ml Q4HP PRN PO HEARTBURN/INDIGESTION 12/17/19 16:00 12/25/19 12:31 Albuterol Sulfate (Proventil, Ventolin Hfa) 2 puff QIDP PRN INH SHORTNESS OF BREATH 12/17/19 16:15 Aripiprazole (AbiLIFY) 2 mg QHS PO 12/25/19 21:00 12/26/19 20:07 Aspirin (Ecotrin) 81 mg DAILY PO 12/18/19 09:00 12/27/19 08:14 Atorvastatin Calcium (Lipitor) 10 mg QHS PO 12/17/19 21:00 12/26/19 20:07 Bupropion HCl (Wellbutrin Xl) 150 mg DAILY PO 12/22/19 09:00 12/24/19 12:27 DC 12/24/19 09:20 Buspirone HCl (Buspar) 15 mg BID PO 12/24/19 21:00 12/25/19 13:37 DC 12/25/19 09:43 Buspirone HCl (Buspar) 30 mg BID PO 12/17/19 21:00 12/24/19 12:27 DC 12/24/19 09:20 Cyanocobalamin (Vitamin B12) 500 mcg DAILY PO 12/18/19 09:00 12/27/19 08:14 Home Med (Med Rec Complete!) ASDIRECTED XX 12/17/19 16:15 12/17/19 16:15 DC Magnesium Hydroxide (Milk Of Magnesia) 30 ml DAILYPRN PRN PO CONSTIPATION 12/17/19 16:00 12/19/19 14:37 Olmesartan (Benicar) 5 mg DAILY PO 12/18/19 09:00 12/27/19 08:16 DC 12/26/19 09:23 Olmesartan (Benicar) 5 mg DAILY PO 12/27/19 09:00 Ramelteon (Rozerem) 8 mg QHS PO 12/19/19 21:00 12/26/19 12:39 DC 12/25/19 20:04 Sertraline HCl (Zoloft) 50 mg QHS PO 12/17/19 21:00 12/18/19 13:57 DC 12/17/19 20:17 Sertraline HCl (Zoloft) 50 mg QHS PO 12/24/19 21:00 12/25/19 13:37 DC 12/24/19 20:06 Sertraline HCl (Zoloft) 100 mg QHS PO 12/18/19 21:00 12/24/19 12:27 DC 12/23/19 20:14 Sertraline HCl (Zoloft) 100 mg QHS PO 12/25/19 21:00 12/26/19 20:07 Trazodone HCl (Desyrel) 50 mg QHSP PRN PO INSOMNIA 12/17/19 16:00 12/19/19 13:17 DC Venlafaxine HCl (Effexor Xr) 37.5 mg DAILY PO 12/24/19 09:00 12/25/19 12:22 DC 12/25/19 09:43 Allergies Coded Allergies: Penicillins (Verified Allergy, Intermediate, HIVES, 08/27/19) FADI LAI DO Dec 27, 2019 08:42
[2019-12-27] MEDS: PILL CUTTER 1 EACH XX PRN (09:23)
[2019-12-27] MEDS: OLMESARTAN MEDOXOMIL 20 MG TAB (BENICAR) PO SCH (09:23)
[2019-12-27] MEDS: LIDOCAINE 5% (LIDODERM) PATCH TD SCH (10:32)
[2019-12-27 16:24] VITALS: BP 99/58
[2019-12-27] MEDS: SERTRALINE 100 MG TAB PO SCH (20:46)
[2019-12-27] MEDS: ARIPiprazole 2 MG TAB PO SCH (20:46)
[2019-12-27] MEDS: ATORVASTATIN 10 MG TAB PO SCH (20:46)
[2019-12-27] MEDS: ACETAMINOPHEN 500 MG TAB PO PRN (21:14)
[2019-12-27] MEDS: **NOTE PATIENT COMMENT** MISC XX SCH (21:17)
[2019-12-28 06:55] VITALS: BP 146/67
[2019-12-28] MEDS: ASPIRIN 81 MG ENTERIC TAB PO SCH (08:15)
[2019-12-28] MEDS: LIDOCAINE 5% (LIDODERM) PATCH TD SCH (08:15)
[2019-12-28] MEDS: OLMESARTAN MEDOXOMIL 20 MG TAB (BENICAR) PO SCH (08:16)
[2019-12-28] MEDS: CYANOCOBALAMIN 500 MCG TAB PO SCH (08:16)
[2019-12-28] MEDS: PILL CUTTER 1 EACH XX PRN (08:16)
--- NOTE | 2019-12-28 10:50 | MHIPNPDOC ---
[facility] Progress Note Progress Note Inpatient Progress Note Ber Drake MRN: N/A Date of : N/A Date of Service: 12/28/2019 History of Present Illness 84-year-old woman with a history of depression and possible cluster B personality traits presents initially with concerns of suicidality, however, she clarifies that she was not suicidal although she reports being extremely depressed. Interval History The patient is met with today. She reports she is doing much better, she reports that in the morning she felt initially somewhat depressed, however, this vanished throughout the day. She has made good strides per staff and has become much more engaged and attends more groups. She reports that she is coping with stressors better and that she has had several good meetings with her daughter. The staff do note at times the patient tends to be ambivalent about discharge, however, when spoken to the patient reports that she is feeling much improved. She has had no behavioral problems overnight. Report she is tolerating the medication well. Review Of Systems General: Reports improved appetite. Denies fevers. Cardiovascular: Denies Chest pain or palpitations GI: As above. Respiratory: Denies shortness of breath or cough Neuro: Denies dizziness, tremors Derm: Denies any rashes or pruritus : Denies any dysuria or urinary problems MSK: Stiff neck resolved with lidocaine patch. HEENT: Denies any vision changes or headaches. Psychotherapy None on this visit. Vital Signs Reviewed. Mental Status Examination General: Well dressed with good hygiene Speech: Spontaneous and fluid Thought processes: Linear and logical MSK: The patient has some slowing with some gait instability. Thought content: Less hopelessness Abstract reasoning, and computation: Intact Description of associations: Intact Description of abnormal or psychotic thoughts: Denies any suicidal or homicidal ideation. Denies any auditory or visual hallucinations. Does not appear to be responding to internal stimuli. Does not appear to be endorsing any bizarre or paranoid ideation. 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 Assessment and Plan Major depressive disorder: Continue sertraline 100 mg daily with 2 mg of Abilify, patient tolerating that well. Cluster B personality traits: Will attempt to prevent staff splitting and reduce attention seeking behaviors. Disposition The patient will be observed over the , with discharge on Tuesday to ensure a safe and effective discharge. Time Spent 15 minutes. Tuesday Vital Signs Vital Signs Date Time Temp Pulse Resp B/P (MAP) Pulse Ox O2 Delivery O2 Flow Rate FiO2 12/28/19 08:16 128/60 12/28/19 06:55 98.5 77 16 12/25/19 11:02 Room Air Current Medications Current Medications Medications (Trade) Dose Ordered Sig/Nelly Route PRN Reason Start Time Stop Time Status Last Admin Dose Admin Acetaminophen (Tylenol Tab) 650 mg Q6HP PRN PO HEADACHE or DISCOMFORT 12/17/19 16:00 12/17/19 16:18 DC Acetaminophen (Tylenol Tab) 1,000 mg TIDP PRN PO PAIN / FEVER 12/17/19 16:15 12/27/19 21:14 Al Hydrox/Mg Hydrox/Simethicone (Mylanta) 30 ml Q4HP PRN PO HEARTBURN/INDIGESTION 12/17/19 16:00 12/25/19 12:31 Albuterol Sulfate (Proventil, Ventolin Hfa) 2 puff QIDP PRN INH SHORTNESS OF BREATH 12/17/19 16:15 Aripiprazole (AbiLIFY) 2 mg QHS PO 12/25/19 21:00 12/27/19 20:46 Aspirin (Ecotrin) 81 mg DAILY PO 12/18/19 09:00 12/28/19 08:15 Atorvastatin Calcium (Lipitor) 10 mg QHS PO 12/17/19 21:00 12/27/19 20:46 Bupropion HCl (Wellbutrin Xl) 150 mg DAILY PO 12/22/19 09:00 12/24/19 12:27 DC 12/24/19 09:20 Buspirone HCl (Buspar) 15 mg BID PO 12/24/19 21:00 12/25/19 13:37 DC 12/25/19 09:43 Buspirone HCl (Buspar) 30 mg BID PO 12/17/19 21:00 12/24/19 12:27 DC 12/24/19 09:20 Cyanocobalamin (Vitamin B12) 500 mcg DAILY PO 12/18/19 09:00 12/28/19 08:16 Home Med (Med Rec Complete!) ASDIRECTED XX 12/17/19 16:15 12/17/19 16:15 DC Lidocaine (Lidoderm Patch) 1 patch DAILY TD 12/27/19 09:00 12/28/19 08:15 Magnesium Hydroxide (Milk Of Magnesia) 30 ml DAILYPRN PRN PO CONSTIPATION 12/17/19 16:00 12/19/19 14:37 Non-Formulary Medication ( See Comment Field Below ) REMOVE LIDODERM PATCH DAILY@21 XX 12/27/19 21:00 12/27/19 21:17 Olmesartan (Benicar) 5 mg DAILY PO 12/18/19 09:00 12/27/19 08:16 DC 12/26/19 09:23 Olmesartan (Benicar) 5 mg DAILY PO 12/27/19 09:00 12/28/19 08:16 Ramelteon (Rozerem) 8 mg QHS PO 12/19/19 21:00 12/26/19 12:39 DC 12/25/19 20:04 Sertraline HCl (Zoloft) 50 mg QHS PO 12/17/19 21:00 12/18/19 13:57 DC 12/17/19 20:17 Sertraline HCl (Zoloft) 50 mg QHS PO 12/24/19 21:00 12/25/19 13:37 DC 12/24/19 20:06 Sertraline HCl (Zoloft) 100 mg QHS PO 12/18/19 21:00 12/24/19 12:27 DC 12/23/19 20:14 Sertraline HCl (Zoloft) 100 mg QHS PO 12/25/19 21:00 12/27/19 20:46 Trazodone HCl (Desyrel) 50 mg QHSP PRN PO INSOMNIA 12/17/19 16:00 12/19/19 13:17 DC Venlafaxine HCl (Effexor Xr) 37.5 mg DAILY PO 12/24/19 09:00 12/25/19 12:22 DC 12/25/19 09:43 Allergies Coded Allergies: Penicillins (Verified Allergy, Intermediate, HIVES, 08/27/19) FADI LAI DO Dec 28, 2019 10:50
[2019-12-28] MEDS: MAALOX 30 ML SUSP *UDC PO PRN (12:20)
[2019-12-28 16:12] VITALS: BP 114/80
[2019-12-28] MEDS: ACETAMINOPHEN 500 MG TAB PO PRN (18:19)
[2019-12-28] MEDS: SERTRALINE 100 MG TAB PO SCH (20:10)
[2019-12-28] MEDS: ATORVASTATIN 10 MG TAB PO SCH (20:10)
[2019-12-28] MEDS: ARIPiprazole 2 MG TAB PO SCH (20:11)
[2019-12-28] MEDS: **NOTE PATIENT COMMENT** MISC XX SCH (20:11)
[2019-12-29 05:53] VITALS: BP 165/66
[2019-12-29] MEDS: ASPIRIN 81 MG ENTERIC TAB PO SCH (08:27)
[2019-12-29] MEDS: LIDOCAINE 5% (LIDODERM) PATCH TD SCH (08:27)
[2019-12-29] MEDS: CYANOCOBALAMIN 500 MCG TAB PO SCH (08:28)
[2019-12-29] MEDS: OLMESARTAN MEDOXOMIL 20 MG TAB (BENICAR) PO SCH (08:28)
[2019-12-29 08:33] VITALS: BP 126/87
[2019-12-29 16:13] VITALS: BP 144/67
[2019-12-29] MEDS: ATORVASTATIN 10 MG TAB PO SCH (20:00)
[2019-12-29] MEDS: ARIPiprazole 2 MG TAB PO SCH (20:00)
[2019-12-29] MEDS: SERTRALINE 100 MG TAB PO SCH (20:00)
[2019-12-29] MEDS: **NOTE PATIENT COMMENT** MISC XX SCH (20:00)
[2019-12-30 06:21] VITALS: BP 107/45
[2019-12-30] MEDS: OLMESARTAN MEDOXOMIL 20 MG TAB (BENICAR) PO SCH (08:11)
[2019-12-30] MEDS: CYANOCOBALAMIN 500 MCG TAB PO SCH (08:11)
[2019-12-30] MEDS: ASPIRIN 81 MG ENTERIC TAB PO SCH (08:11)
[2019-12-30] MEDS: LIDOCAINE 5% (LIDODERM) PATCH TD SCH (08:11)
[2019-12-30] MEDS: ACETAMINOPHEN 500 MG TAB PO PRN (13:44)
[2019-12-30 16:21] VITALS: BP 118/68
[2019-12-30] MEDS: ATORVASTATIN 10 MG TAB PO SCH (21:17)
[2019-12-30] MEDS: **NOTE PATIENT COMMENT** MISC XX SCH (21:17)
[2019-12-30] MEDS: SERTRALINE 100 MG TAB PO SCH (21:17)
[2019-12-30] MEDS: ARIPiprazole 2 MG TAB PO SCH (21:17)
[2019-12-31 06:18] VITALS: BP 132/78
[2019-12-31] MEDS: CYANOCOBALAMIN 500 MCG TAB PO SCH (08:13)
[2019-12-31] MEDS: ASPIRIN 81 MG ENTERIC TAB PO SCH (08:13)
[2019-12-31 08:15] VITALS: BP 132/78
[2019-12-31] MEDS: OLMESARTAN MEDOXOMIL 20 MG TAB (BENICAR) PO SCH (08:15)
[2019-12-31] MEDS: LIDOCAINE 5% (LIDODERM) PATCH TD SCH (08:16)
[2019-12-31] MEDS ORDERED: SERT-138 PO (10:57)
[2019-12-31] MEDS ORDERED: ABIL1TAB13 PO (10:57)
--- NOTE | 2019-12-31 10:57 | MHDSPDOC ---
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 History of Present Illness 84-year-old woman with a history of depression and possible cluster B personality traits, presents initially with concerns of suicidality, however, she clarifies that she was not suicidal although she reports being extremely depressed. Consultants Involved Hospitalist/PCP screening Treatment and Progress On The Unit The patient was admitted to the inpatient unit, where she was initially attempted on a cross taper from sertraline to Effexor. She did not tolerate the taper as she got severe GI upset from the Effexor. Subsequently, she was restarted back to her 100 mg of sertraline augmented with 2 mg of Abilify at night, she did well with this and gradually began to improve in terms of her depression. Initially, she was isolative to her room and did not interact much, then she began to become more active and engaged on the unit, attending groups fairly frequently. She had no major behavioral problems while on our unit and did well after that. She had multiple positive meetings with her daughter that helped ensure that she would feel better to return home. The patient did well and was given outpatient services to help with her loneliness. Discharge Assessment 84-year-old woman with a history of depression and cluster B personality traits, presents depressed, she is treated with Augmentin, sertraline with positive effects and near complete resolution of her depression. The patient at the time of discharge did not meet criteria for involuntary admission/extension due to having a normal mental status exam, fair insight into the situation, They are engaged in the discharge process, as well as being friendly and amenable in behavioral control and havent been engaging in any observed concerning behavior or ideation recently. They decline voluntary extension/admission at this time and must be discharged in good raheem, as Im unable to make a case for holding the patient against their will. They may have historical risk factors of admissions and other interactions with psychiatry however, those are not modifiable from a clinical perspective. The patient will need to be discharged in good raheem. Mental Status Examination General: Well dressed with good hygiene Speech: Spontaneous and fluid Thought processes: Linear and logical MSK: Smooth and coordinated gait, no signs of tremors or involuntary orofacial movements Thought content: Future orientated Abstract reasoning, and computation: Intact Description of associations: Intact Description of abnormal or psychotic thoughts: Denies any suicidal or homicidal ideation. Denies any auditory or visual hallucinations. Does not appear to be responding to internal stimuli. Does not appear to be endorsing any bizarre or paranoid ideation. Judgment: fair Insight: fair Orientation: Alert and orientated 3 Cognition: Grossly normal Recent and remote memory: Intact Attention span and concentration: Intact Fund of knowledge: Adequate Mood: "okay" Affect: Euthymic with a full range Follow Up The social work team worked during the predischarge meeting in order to evaluate for further issues of lethality address them fully before discharge. They worked on safety planning with the patient's family members in order to ensure that the patient will have a safe and effective discharge. Time Spent The amount of time spent in the coordination of care for this patient was approximately 45 minutes. Tuesday Vital Signs/I&Os Vital Signs Date Time Temp Pulse Resp B/P (MAP) Pulse Ox O2 Delivery O2 Flow Rate FiO2 12/31/19 08:15 132/78 12/31/19 06:18 97.9 84 14 12/25/19 11:02 Room Air Medications Scheduled Aripiprazole (Abilify) 2 Mg Tablet, 2 MG PO QHS for mood for 7 Days, #7 Aspirin (Aspir 81) 81 Mg Tablet.dr, 81 MG PO DAILY, (Reported) Atorvastatin Calcium (Atorvastatin Calcium) 10 Mg Tablet, 10 MG PO QHS, (Reported) Cyanocobalamin (Vitamin B-12) (Vitamin B-12) 500 Mcg Tab, 500 MCG PO DAILY, (Reported) Olmesartan Medoxomil (Olmesartan Medoxomil) 5 Mg Tablet, 5 MG PO DAILY, (Reported) Sertraline HCl (Sertraline HCl) 100 Mg Tablet, 100 MG PO QHS for mood for 7 Days, #7 Scheduled PRN Acetaminophen (Tylenol Extra Strength) 500 Mg Tablet, 1,000 MG PO TID PRN for PAIN / FEVER, (Reported) Albuterol Sulfate (Proair Hfa) 8.5 Gm Hfa.aer.ad, 2 PUFFS INH QID PRN for SHORTNESS OF BREATH, (Reported) Allergies Coded Allergies: Penicillins (Verified Allergy, Intermediate, HIVES, 08/27/19) FADI LAI DO Dec 31, 2019 10:57
[2019-12-31 15:39] VITALS: BP 153/70
== END 2019-12-31 15:46 | disposition home or self-care (01) | DRG 885 ==
LOC: M ED 07:58 → M ED INP 15:46 → M PSY 16:46
PROVIDERS: ADMIT Psychiatry & Neurology Addiction Medicine; ATTEND Psychiatry & Neurology Addiction Medicine
DX: F33.1 Major depressive disorder, recurrent, moderate (principal); F41.1 Generalized anxiety disorder; Z91.14 Patient's other noncompliance with medication regimen; Z63.4 Disappearance and death of family member; I10 Essential (primary) hypertension; K21.9 Gastro-esophageal reflux disease without esophagitis; R01.1 Cardiac murmur, unspecified; E78.5 Hyperlipidemia, unspecified; Z87.891 Personal history of nicotine dependence; Z79.82 Long term (current) use of aspirin; Z79.899 Other long term (current) drug therapy; Z88.0 Allergy status to penicillin; F60.89 Other specific personality disorders

== ENCOUNTER → 2020-01-18 | Outpatient (REF) | payer MEDICARE ==
[~2020-01-18] MED LIST changes: +ABIL1TAB13 PO; +SERT-138 PO; +SERT50TA29 PO
== END ==
LOC: M SMT 13:40
PROVIDERS: ATTEND Urology
DX: R31.29 Other microscopic hematuria (principal)

== ENCOUNTER 2020-03-25 10:03 | Emergency (ER) | payer MEDICARE ==
[~2020-03-25] VITALS: Ht 165.1 cm; Wt 96.4 kg
[2020-03-25 10:04] VITALS: BP 133/87
[2020-03-25] MEDS ORDERED: CLIN2CR (10:12)
[2020-03-25] MEDS ORDERED: ARIP1TAB4 (10:12)
--- NOTE | 2020-03-25 12:16 | REPVR ---
PROCEDURE INFORMATION: Exam: CT Cervical Spine Without Contrast Exam date and time: 03/25/2020 10:28 AM Age: 84 years old Clinical indication: Injury or trauma; Fall; Initial encounter; Blunt trauma; Additional info: Head injury TECHNIQUE: Imaging protocol: Computed tomography images of the cervical spine without contrast. Radiation optimization: All CT scans at this facility use at least one of these dose optimization techniques: automated exposure control; mA and/or kV adjustment per patient size (includes targeted exams where dose is matched to clinical indication); or iterative reconstruction. COMPARISON: [facility] Spine, Cervical 04/22/2015 6:05 PM FINDINGS: Vertebrae: Mild mid cervical dextroconvex scoliosis and lower cervical levoconvex scoliosis. No acute fracture seen. Prior C4 corpectomy and C5 partial corpectomy placement of a strut graft between C3 and C6. Prior ACDF at C6-C7; there is subsidence of the interbody graft into the endplates without discrete solid osseous bridging across disc space, findings consistent with a nonunion. A ventral plate spans C3 through C7. There are C3, C6 and C7 vertebral body screws which appear intact and in place. Discs/Spinal canal/Neural foramina: Marked degenerative changes at C1-C2. Severe left facet arthropathy from C3-C4 through C5-C6. No severe central spinal stenosis. There are neural foraminal stenoses due to uncovertebral and facet arthropathy, in particular on the left at C3-C4, present to a lesser extent elsewhere, for example on the right at C3-C4 and C5-C6 and bilaterally at C6-C7. Soft tissues: Unremarkable. Lungs: The lungs demonstrate biapical parenchymal scarring. IMPRESSION: 1. No cervical spine fracture seen. 2. Postsurgical and degenerative changes, as above. Electronically signed by: Doris Guardado On 03/25/2020 12:16:22 PM
--- NOTE | 2020-03-25 12:40 | REP ---
REASON FOR EXAM: Trauma. COMPARISON: 12/19/2019, which showed no acute disease. Today's exam is unchanged from the prior exam. There are cerebral and cerebellar atrophic change status quo. There is no evidence of an acute intracranial hemorrhagic or nonhemorrhagic event. There is no shift of the midline structures. There is no change in the ventricles and sulci. There is no skull fracture. The imaged paranasal sinuses and mastoid air cells remain clear. IMPRESSION: Stable chronic changes as described above. There is no evidence of acute disease. Electronically Signed by Mamadou Clark DO 03/25/2020 01:01 P
== END 2020-03-25 13:30 | disposition home or self-care (01) ==
LOC: M ED 10:03
DX: R51 Headache (principal); Z91.81 History of falling; I10 Essential (primary) hypertension; E78.00 Pure hypercholesterolemia, unspecified

== ENCOUNTER → 2020-10-07 | Outpatient (CLI) | payer MEDICARE ==
[~2020-10-07] MED LIST changes: +AMLO1TAB24 PO; -AMLO5TAB6 PO; +ARIP1TAB4; -ASPI81TA85 PO; +ASPI81TA86 PO; +CLIN2CR
[2020-10-07 16:30] LABS: CALCIUM LEVEL 8.9 MG/DL (8.8-10.2); CREATININE FOR GFR 1.47 MG/DL (0.55-1.30); GLOMERULAR FILTRATION RATE 36.1 (>32); POTASSIUM SERUM 4.6 MEQ/L (3.5-5.1)
== END ==
LOC: M WUC 11:28
PROVIDERS: ATTEND Nurse Practitioner Family
DX: I50.33 Acute on chronic diastolic (congestive) heart failure (principal)

== ENCOUNTER → 2020-10-15 | Outpatient (CLI) | payer MEDICARE ==
[2020-10-15 19:29] LABS: CALCIUM LEVEL 9.1 MG/DL (8.8-10.2); CREATININE FOR GFR 1.45 MG/DL (0.55-1.30); GLOMERULAR FILTRATION RATE 36.6 (>32); POTASSIUM SERUM 4.9 MEQ/L (3.5-5.1)
== END ==
LOC: M WUC 15:34
PROVIDERS: ATTEND Nurse Practitioner Family
DX: I50.33 Acute on chronic diastolic (congestive) heart failure (principal)

== ENCOUNTER → 2020-10-20 | Outpatient (REF) | payer MEDICARE | LOC: M LAB REF 19:52 | PROVIDERS: ATTEND Physician Assistant | DX: R30.0 Dysuria (principal) ==

== ENCOUNTER → 2020-12-24 | Outpatient (REF) | payer MEDICARE | LOC: M WUC 15:44 | PROVIDERS: ATTEND Physician Assistant | DX: N39.0 Urinary tract infection, site not specified (principal) ==

== ENCOUNTER → 2021-02-23 | Outpatient (CLI) | payer MEDICARE ==
[2021-02-23 16:46] LABS: BLOOD UREA NITROGEN 23 MG/DL (7-18); CARBON DIOXIDE LEVEL 30 MEQ/L (21-32); CHLORIDE LEVEL 105 MEQ/L (98-107); CREATININE FOR GFR 0.85 MG/DL (0.55-1.30); GLOMERULAR FILTRATION RATE > 60.0 (>32); GLUCOSE, FASTING 88 MG/DL (70-100); POTASSIUM SERUM 4.6 MEQ/L (3.5-5.1); SODIUM LEVEL 138 MEQ/L (136-145)
[2021-02-23 16:47] LABS: CALCIUM LEVEL 9.1 MG/DL (8.8-10.2)
== END ==
LOC: M WUC 12:48
PROVIDERS: ATTEND Internal Medicine Cardiovascular Disease
DX: I50.32 Chronic diastolic (congestive) heart failure (principal)

== ENCOUNTER → 2021-04-08 | Outpatient (CLI) | payer MEDICARE ==
--- NOTE | 2021-04-08 12:01 | REP ---
INDICATION: PAIN. COMPARISON: None. TECHNIQUE: Three views of the right shoulder were performed. FINDINGS: The acromioclavicular and glenohumeral relationships are within normal limits. There is no acute fracture or destructive osseous lesion. IMPRESSION: Within normal limits <Electronically signed by Mamadou Clark > 04/08/21 1151
== END ==
LOC: M WUC 10:55
PROVIDERS: ATTEND Family Medicine
DX: M25.511 Pain in right shoulder (principal)

== ENCOUNTER → 2021-04-09 | Outpatient (CLI) | payer MEDICARE ==
--- NOTE | 2021-04-17 06:32 | REPMRS ---
Patient History The patient states she had a clinical breast exam in February 2021. Patient is postmenopausal. Family history of breast cancer at age 45 in sister, colorectal cancer at age 57 in brother. Patient states no breast complaints today. Patient has signed MRS History Sheet. Digital Woman Screen Mammo: April 09, 2021 - Exam #: [id number] Bilateral CC and MLO view(s) were taken. Technologist: Darlene Moralez, Technologist Prior study comparison: March 14, 2020, bilateral digital mammo screening bilat, performed at [facility]. May 09, 2015, bilateral digital mammo screening bilat, performed at [facility]. FINDINGS: There are scattered fibroglandular densities. Screening. Digital screening (2D) mammography was performed bilaterally in the CC and MLO projections. Additionally, breast tomosynthesis (3D mammography) was performed bilaterally in the CC and MLO projections. Todays exam was compared to the prior exam/exams. By history, the patient has no complaints of a palpable breast abnormality or other significant breast complaints. The breasts are unchanged in size and shape. There are no kaya-soft tissue densities or spiculated masses. There is no internal architectural distortion.Once again, stable benign appearing calcifications are seen. There are no suspicious kaya-calcific clusters. Skin thickening or nipple retraction is not present. IMPRESSION: BI-RADS Category 2- Benign Findings. There is no evidence of malignant alteration of the breasts. Followup examination recommended in one year. The Volpara volumetric breast density category is B, there are scattered areas of fibroglandular densities. This mammogram was read with the assistance of [employer],an FDA approved computer aided detection system for mammography. Negative x-ray reports should not delay surgical consultation if a dominant or clinically suspicious mass is present. Not all breast cancers can be identified by mammography. Therefore, we recommend that you continue to perform regular breast self-examination and physical examination and then promptly contact your physician of any concerns or changes. Adenosis and dense breasts may obscure an underlying neoplasm. Assessment: BI-RADS/ACR category 2 mammogram. Benign Findings. Recommendation Routine screening mammogram of both breasts in 1 year. Electronically Signed By: Mamadou Clark DO 04/09/21 [id number]
== END ==
LOC: M WHC 12:16
PROVIDERS: ATTEND Nurse Practitioner
DX: Z12.31 Encounter for screening mammogram for malignant neoplasm of breast (principal); Z80.3 Family history of malignant neoplasm of breast

== ENCOUNTER → 2021-05-01 | Outpatient (CLI) | payer MEDICARE ==
--- NOTE | 2021-05-01 15:44 | REP ---
INDICATION: PAIN COMPARISON: None. TECHNIQUE: AP and lateral views of the right humerus. FINDINGS: Age-related degenerative changes at the shoulder and elbow joint. There is smooth focal periosteal reaction of the mid shaft which is nonspecific. No further significant abnormalities appreciated. There is no evidence for acute or healed fracture/dislocation. 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 No evidence for acute abnormality by radiographic evaluation. <Electronically signed by Arnaldo Jarvis > 05/01/21 [id number]
== END ==
LOC: M WUC 15:12
PROVIDERS: ATTEND Physician Assistant
DX: M79.621 Pain in right upper arm (principal); M19.011 Primary osteoarthritis, right shoulder; N39.0 Urinary tract infection, site not specified

== ENCOUNTER → 2021-08-26 | Outpatient (CLI) | payer MEDICARE ==
[~2021-08-26] MED LIST changes: +ISOVUE-300 61% 50ML VIAL As Ordered ONE; +LIDOCAINE 1% MDV 20ML VIAL As Ordered ONE; +methylPREDNISolone SUSP 40MG/ML 1ML VIAL (DEPO MEDROL) As Ordered ONE
--- NOTE | 2021-08-26 17:30 | REP ---
INDICATION: OA RT SHOULDER. COMPARISON: None TECHNIQUE: The procedure was performed by MARCELO Matta, under the direct supervision of Dr. Bedolla. The benefits and risks of the procedure were explained to the patient, and an informed consent was obtained. Directly prior to the start of the procedure, a formal time-out was completed in the procedure room. The right shoulder joint space was localized using fluoroscopic guidance. The skin was prepped and draped in a sterile fashion. Approximately 5 mL of 1% Lidocaine 10 mg/ml was used as a local anesthetic. Using fluoroscopic guidance, a #22 gauge spinal needle was inserted and advanced into the right shoulder joint space. Approximately 2 mL of Isovue 300 was injected to verify placement. Five mL of a solution containing 3 mL 1% lidocaine 10 mg/ml and 2 mL Depo-Medrol 40 mg/mL was injected into the joint space. The needle was removed and hemostasis was achieved. FINDINGS: The patient tolerated the procedure well and there were no immediate complications. IMPRESSION: 1. Technically successful right shoulder arthrogram. 0.1 minutes of fluoroscopy time was utilized for this procedure. Some fluoroscopic images are performed with last image hold technology. These images require no additional radiation. <Electronically signed by Windy Burrows > 08/26/21 [id number] <Electronically signed by Cuco Bedolla > 08/26/21 [id number]
== END ==
LOC: M RADPRO 10:49
PROVIDERS: ATTEND Physician Assistant Surgical
DX: M19.011 Primary osteoarthritis, right shoulder (principal)
CPT/HCPCS: 20610; 77002; J1030; Q9967

== ENCOUNTER → 2021-10-21 | Outpatient (REF) | payer MEDICARE ==
[~2021-10-21] MED LIST changes: -ISOVUE-300 61% 50ML VIAL As Ordered ONE; -LIDOCAINE 1% MDV 20ML VIAL As Ordered ONE; -methylPREDNISolone SUSP 40MG/ML 1ML VIAL (DEPO MEDROL) As Ordered ONE
== END ==
LOC: M LAB REF 15:18
PROVIDERS: ATTEND Physician Assistant
DX: R35.0 Frequency of micturition (principal)

== ENCOUNTER → 2022-06-09 | Outpatient (CLI) | payer MEDICARE ==
[~2022-06-09] MED LIST changes: +ISOVUE-300 61% 50ML VIAL As Ordered ONE; +LIDOCAINE 1% MDV 20ML VIAL As Ordered ONE; -OLME5TAB PO; +OLME5TAB24 PO; +ULTR1TAB PO; -ULTR37.54 PO; +methylPREDNISolone SUSP 40MG/ML 1ML VIAL (DEPO MEDROL) As Ordered ONE
== END ==
LOC: M RADPRO 11:11
PROVIDERS: ATTEND Physician Assistant Surgical
DX: M19.011 Primary osteoarthritis, right shoulder (principal)
CPT/HCPCS: 20610; 76000; J1030; Q9967

== ENCOUNTER → 2022-07-22 | Outpatient (CLI) | payer MEDICARE ==
[~2022-07-22] MED LIST changes: -ISOVUE-300 61% 50ML VIAL As Ordered ONE; -LIDOCAINE 1% MDV 20ML VIAL As Ordered ONE; -methylPREDNISolone SUSP 40MG/ML 1ML VIAL (DEPO MEDROL) As Ordered ONE
[2022-07-22 15:08] LABS: BLOOD UREA NITROGEN 18 MG/DL (7-18); CALCIUM LEVEL 9.1 MG/DL (8.8-10.2); CARBON DIOXIDE LEVEL 31 MEQ/L (21-32); CHLORIDE LEVEL 100 MEQ/L (98-107); CREATININE FOR GFR 0.83 MG/DL (0.55-1.30); GLOMERULAR FILTRATION RATE > 60.0 (>32); GLUCOSE, FASTING 100 MG/DL (70-100); POTASSIUM SERUM 4.8 MEQ/L (3.5-5.1); SODIUM LEVEL 136 MEQ/L (136-145)
== END ==
LOC: M WUC 13:00
PROVIDERS: ATTEND Nurse Practitioner Adult Health
DX: I50.32 Chronic diastolic (congestive) heart failure (principal); E78.2 Mixed hyperlipidemia; I11.0 Hypertensive heart disease with heart failure; I08.0 Rheumatic disorders of both mitral and aortic valves; I73.9 Peripheral vascular disease, unspecified

== ENCOUNTER → 2022-09-29 | Outpatient (CLI) | payer MEDICARE ==
[~2022-09-29] MED LIST changes: +**SFHN** LIDOCAINE 1% MDV 20ML VIAL ONE; +ISOVUE-300 61% 50ML VIAL ONE; +METHYLPREDNISOLONE 40 MG/ML ONE; -PAXI10TA12 PO; +PAXI10TA13 PO; -PAXI20TA29 PO; +PAXI20TA30 PO
== END ==
LOC: M PLAIMG 13:43
PROVIDERS: ATTEND Physician Assistant Surgical
DX: M19.011 Primary osteoarthritis, right shoulder (principal); M25.511 Pain in right shoulder
CPT/HCPCS: 20610; 76000; J1030; Q9967

== ENCOUNTER 2023-01-20 13:27 | Inpatient (IN) | payer MEDICARE ==
[~2023-01-20] VITALS: Ht 165.1 cm; Wt 93.9 kg
[~2023-01-20 13:27] MED LIST changes: -**SFHN** LIDOCAINE 1% MDV 20ML VIAL ONE; -ARIP1TAB4; +ARIP1TAB4 PO; -ISOVUE-300 61% 50ML VIAL ONE; -METHYLPREDNISOLONE 40 MG/ML ONE; +SPIRONOLACTONE 25 MG TAB PO SCH
[2023-01-20] MEDS ORDERED: SPIR-10 PO (13:59)
[2023-01-20] MEDS ORDERED: FURO20TA2 PO (13:59)
[2023-01-20 14:25] LABS: BASO % 0.1 % (0.0-1.0); EOS % 0.6 % (0.0-3.0); HEMATOCRIT 33.9 % (36.0-47.0); HEMOGLOBIN 10.3 g/dl (12.0-15.5); LYMPH # 0.6 10^3/uL (1.5-5.0); LYMPH % 8.8 % (24.0-44.0); MEAN CORPUSCULAR HEMOGLOBIN 28.9 pg (27.0-33.0); MEAN CORPUSCULAR HGB CONC 30.4 g/dl (32.0-36.5); MONO # 0.6 10^3/uL (0.0-0.8); MONO % 9.3 % (2.0-8.0); NEUTROPHILS # 5.4 10^3/uL (1.5-8.5); NEUTROPHILS % 80.6 % (36.0-66.0); PLATELET COUNT, AUTOMATED 133 10^3/uL (150-450); RED BLOOD COUNT 3.57 10^6/uL (4.00-5.40); WHITE BLOOD COUNT 6.7 10^3/uL (4.0-10.0)
[2023-01-20 14:46] LABS: ALBUMIN 3.3 G/DL (3.2-5.2); ALKALINE PHOSPHATASE 82 U/L (46-116); ALT/SGPT 17 U/L (7.0-40); AST/SGOT 35 U/L (<34); BILIRUBIN,DIRECT 0.3 MG/DL (<0.4); BILIRUBIN,TOTAL 0.5 MG/DL (0.3-1.2); BLOOD UREA NITROGEN 30 MG/DL (9-23); CALCIUM LEVEL 8.9 MG/DL (8.3-10.6); CARBON DIOXIDE LEVEL 27 MMOL/L (20-31); CHLORIDE LEVEL 100 MMOL/L (98-107); CREATININE FOR GFR 0.83 MG/DL (0.55-1.30); GLOMERULAR FILTRATION RATE > 60.0 (>32); GLUCOSE, FASTING 102 MG/DL (74-106); POTASSIUM SERUM 4.7 MMOL/L (3.5-5.1); SODIUM LEVEL 136 MMOL/L (136-145); THYROID STIMULATING HORMONE 4.193 uIU/ML (0.55-4.78); THYROXINE (T4) 6.8 UG/DL (4.5-10.9); TOTAL PROTEIN 6.7 G/DL (5.7-8.2)
[2023-01-20 14:50] LABS: CPK CREATINE PHOSPHOKINASE 228 U/L (34-145); MB/CK RELATIVE INDEX 1.31 (< OR =4)
[2023-01-20] MEDS ORDERED: FUROSEMIDE 40MG/4ML VIAL IV ONE (15:00)
[2023-01-20 15:03] LABS: RSV AMPLIFICATION NEGATIVE (NEGATIVE)
[2023-01-20 16:03] LABS: MB/CK RELATIVE INDEX 1.36 (< OR =4)
[2023-01-20] MEDS ORDERED: ALBUTEROL 90 MCG/ACT 8GM HFA INHALER INH PRN (17:10)
[2023-01-20] MEDS ORDERED: ZOLO100T PO (17:52)
[2023-01-20] MEDS ORDERED: VITA100093 PO (17:52)
[2023-01-20] MEDS ORDERED: VENTAER INH (17:52)
[2023-01-20] MEDS ORDERED: ASPI-161 PO (17:52)
[2023-01-20] MEDS ORDERED: HOME MED LIST COMPLETE! XX SCH (17:55)
[2023-01-20 18:25] VITALS: BP 89/46
[2023-01-20 19:18] VITALS: BP 98/58
[2023-01-20] MEDS ORDERED: NYSTATIN 100,000 UNITS/GM TOPICAL PWD 15GM TOP PRN (19:45)
[2023-01-20 20:00] VITALS: BP 90/46
[2023-01-20] MEDS: ASPIRIN 81MG ENTERIC TABLET PO SCH (20:58)
[2023-01-20] MEDS: SERTRALINE 100 MG TAB PO SCH (21:01)
[2023-01-20] MEDS: ATORVASTATIN 10 MG TAB PO SCH (21:02)
[2023-01-20] MEDS: ACETAMINOPHEN TAB 650MG DOSE (2X325MG) PO PRN (21:02)
[2023-01-20] MEDS: HEPARIN SOD (PORCINE) 5000UNITS/ML 1ML VIAL/SYRINGE SC SCH (21:03)
[2023-01-20] MEDS: ARIPiprazole 2 MG TAB PO SCH (21:08)
[2023-01-20] MEDS ORDERED: KETOROLAC 30 MG/ML 1ML VIAL IV ONE (21:30)
[2023-01-20 23:24] VITALS: BP_SYST 96; BP_SYST 98; BP_DIAS 50
[2023-01-21] VITALS (7 sets, daily range): BP systolic 82–110; BP diastolic 42–64
[2023-01-21] MEDS: HEPARIN SOD (PORCINE) 5000UNITS/ML 1ML VIAL/SYRINGE SC SCH ×3 (06:10→20:42)
[2023-01-21 06:11] LABS: HEMOGLOBIN 9.6 g/dl (12.0-15.5); MEAN CORPUSCULAR HEMOGLOBIN 29.5 pg (27.0-33.0); MEAN CORPUSCULAR VOLUME 95.4 fl (80.0-96.0); PLATELET COUNT, AUTOMATED 126 10^3/uL (150-450); RED BLOOD COUNT 3.25 10^6/uL (4.00-5.40); WHITE BLOOD COUNT 5.5 10^3/uL (4.0-10.0)
[2023-01-21 06:59] LABS: ALBUMIN 3.1 G/DL (3.2-5.2); BILIRUBIN,TOTAL 0.4 MG/DL (0.3-1.2); CALCIUM LEVEL 8.7 MG/DL (8.3-10.6); CREATININE FOR GFR 1.16 MG/DL (0.55-1.30); MAGNESIUM LEVEL 1.7 MG/DL (1.8-2.4); POTASSIUM SERUM 4.5 MMOL/L (3.5-5.1); TOTAL PROTEIN 6.2 G/DL (5.7-8.2)
[2023-01-21] MEDS ORDERED: MAGNESIUM OXIDE 400MG TAB (MAG-OX) PO ONE (08:00)
[2023-01-21] MEDS: SPIRONOLACTONE 25 MG TAB PO SCH (09:00)
[2023-01-21] MEDS: FUROSEMIDE 40MG/4ML VIAL IV SCH ×3 (09:49→17:30)
[2023-01-21] MEDS: ASPIRIN 81MG ENTERIC TABLET PO SCH (09:49)
[2023-01-21] MEDS: NYSTATIN 100,000 UNITS/GM TOPICAL PWD 15GM TOP SCH ×2 (09:51→20:43)
[2023-01-21] MEDS: SERTRALINE 100 MG TAB PO SCH (20:42)
[2023-01-21] MEDS: ATORVASTATIN 10 MG TAB PO SCH (20:42)
[2023-01-21] MEDS: ARIPiprazole 2 MG TAB PO SCH (20:42)
[2023-01-22] MEDS: FUROSEMIDE 40MG/4ML VIAL IV SCH ×3 (00:04→18:04)
[2023-01-22] MEDS: ACETAMINOPHEN TAB 650MG DOSE (2X325MG) PO PRN (00:05)
[2023-01-22] MEDS: HEPARIN SOD (PORCINE) 5000UNITS/ML 1ML VIAL/SYRINGE SC SCH ×3 (05:43→22:29)
[2023-01-22 06:00] VITALS: BP 118/60
[2023-01-22 06:21] LABS: BASO % 0.2 % (0.0-1.0); EOS # 0.1 10^3/uL (0.0-0.5); EOS % 1.9 % (0.0-3.0); HEMATOCRIT 30.9 % (36.0-47.0); HEMOGLOBIN 9.5 g/dl (12.0-15.5); LYMPH % 18.1 % (24.0-44.0); MEAN CORPUSCULAR HEMOGLOBIN 29.3 pg (27.0-33.0); MEAN CORPUSCULAR HGB CONC 30.7 g/dl (32.0-36.5); MEAN CORPUSCULAR VOLUME 95.4 fl (80.0-96.0); MONO # 0.5 10^3/uL (0.0-0.8); MONO % 9.7 % (2.0-8.0); NEUTROPHILS # 3.7 10^3/uL (1.5-8.5); NEUTROPHILS % 69.7 % (36.0-66.0); PLATELET COUNT, AUTOMATED 126 10^3/uL (150-450); RED BLOOD COUNT 3.24 10^6/uL (4.00-5.40); WHITE BLOOD COUNT 5.4 10^3/uL (4.0-10.0)
[2023-01-22 06:46] LABS: ALBUMIN 2.9 G/DL (3.2-5.2); BILIRUBIN,TOTAL 0.3 MG/DL (0.3-1.2); CALCIUM LEVEL 8.4 MG/DL (8.3-10.6); CREATININE FOR GFR 1.12 MG/DL (0.55-1.30); MAGNESIUM LEVEL 1.6 MG/DL (1.8-2.4); POTASSIUM SERUM 4.3 MMOL/L (3.5-5.1); TOTAL PROTEIN 6.1 G/DL (5.7-8.2)
[2023-01-22] MEDS: SPIRONOLACTONE 25 MG TAB PO SCH (08:42)
[2023-01-22] MEDS: ASPIRIN 81MG ENTERIC TABLET PO SCH (08:42)
[2023-01-22] MEDS: NYSTATIN 100,000 UNITS/GM TOPICAL PWD 15GM TOP SCH ×2 (08:42→22:29)
[2023-01-22] MEDS ORDERED: MAGNESIUM OXIDE 400MG TAB (MAG-OX) PO ONE (09:00)
[2023-01-22 14:00] VITALS: BP 98/60
[2023-01-22 20:57] VITALS: BP 114/64
[2023-01-22] MEDS: ATORVASTATIN 10 MG TAB PO SCH (22:28)
[2023-01-22] MEDS: SERTRALINE 100 MG TAB PO SCH (22:28)
[2023-01-22] MEDS: ARIPiprazole 2 MG TAB PO SCH (22:28)
[2023-01-23] MEDS: FUROSEMIDE 40MG/4ML VIAL IV SCH ×3 (00:50→15:31)
[2023-01-23] MEDS: HEPARIN SOD (PORCINE) 5000UNITS/ML 1ML VIAL/SYRINGE SC SCH ×3 (05:17→21:05)
[2023-01-23 06:00] VITALS: BP 124/51
[2023-01-23 06:26] LABS: BASO % 0.4 % (0.0-1.0); EOS # 0.1 10^3/uL (0.0-0.5); EOS % 2.1 % (0.0-3.0); HEMOGLOBIN 9.9 g/dl (12.0-15.5); LYMPH # 1.2 10^3/uL (1.5-5.0); LYMPH % 20.5 % (24.0-44.0); MEAN CORPUSCULAR HEMOGLOBIN 29.5 pg (27.0-33.0); MEAN CORPUSCULAR HGB CONC 30.9 g/dl (32.0-36.5); MEAN CORPUSCULAR VOLUME 95.2 fl (80.0-96.0); MONO # 0.6 10^3/uL (0.0-0.8); NEUTROPHILS # 3.7 10^3/uL (1.5-8.5); NEUTROPHILS % 66.6 % (36.0-66.0); PLATELET COUNT, AUTOMATED 134 10^3/uL (150-450); RED BLOOD COUNT 3.36 10^6/uL (4.00-5.40); WHITE BLOOD COUNT 5.6 10^3/uL (4.0-10.0)
[2023-01-23 06:45] LABS: BILIRUBIN,TOTAL 0.4 MG/DL (0.3-1.2); CALCIUM LEVEL 8.3 MG/DL (8.3-10.6); CREATININE FOR GFR 0.99 MG/DL (0.55-1.30); GLOMERULAR FILTRATION RATE 56.5 (>32); MAGNESIUM LEVEL 1.6 MG/DL (1.8-2.4); POTASSIUM SERUM 3.7 MMOL/L (3.5-5.1); TOTAL PROTEIN 6.2 G/DL (5.7-8.2)
[2023-01-23] MEDS: NYSTATIN 100,000 UNITS/GM TOPICAL PWD 15GM TOP SCH ×2 (08:48→21:05)
[2023-01-23] MEDS: ASPIRIN 81MG ENTERIC TABLET PO SCH (08:48)
[2023-01-23] MEDS: SPIRONOLACTONE 25 MG TAB PO SCH (08:49)
[2023-01-23] MEDS ORDERED: MAGNESIUM OXIDE 400MG TAB (MAG-OX) PO ONE (09:00)
[2023-01-23 14:00] VITALS: BP 121/52
[2023-01-23 21:04] VITALS: BP 120/61
[2023-01-23] MEDS: ATORVASTATIN 10 MG TAB PO SCH (21:04)
[2023-01-23] MEDS: SERTRALINE 100 MG TAB PO SCH (21:05)
[2023-01-23] MEDS: ARIPiprazole 2 MG TAB PO SCH (21:05)
[2023-01-24] MEDS: FUROSEMIDE 40MG/4ML VIAL IV SCH ×3 (00:54→08:36)
[2023-01-24 00:55] VITALS: BP 108/50
[2023-01-24] MEDS: HEPARIN SOD (PORCINE) 5000UNITS/ML 1ML VIAL/SYRINGE SC SCH ×3 (05:48→21:53)
[2023-01-24 06:00] VITALS: BP 102/56
[2023-01-24 06:04] LABS: BASO % 0.4 % (0.0-1.0); EOS # 0.1 10^3/uL (0.0-0.5); HEMATOCRIT 34.5 % (36.0-47.0); HEMOGLOBIN 10.4 g/dl (12.0-15.5); LYMPH # 1.1 10^3/uL (1.5-5.0); LYMPH % 20.9 % (24.0-44.0); MEAN CORPUSCULAR HEMOGLOBIN 28.7 pg (27.0-33.0); MEAN CORPUSCULAR HGB CONC 30.1 g/dl (32.0-36.5); MEAN CORPUSCULAR VOLUME 95.3 fl (80.0-96.0); MONO # 0.5 10^3/uL (0.0-0.8); MONO % 9.2 % (2.0-8.0); NEUTROPHILS # 3.6 10^3/uL (1.5-8.5); NEUTROPHILS % 67.3 % (36.0-66.0); PLATELET COUNT, AUTOMATED 134 10^3/uL (150-450); RED BLOOD COUNT 3.62 10^6/uL (4.00-5.40); WHITE BLOOD COUNT 5.4 10^3/uL (4.0-10.0)
[2023-01-24 06:32] LABS: ALKALINE PHOSPHATASE 73 U/L (46-116); ALT/SGPT 12 U/L (7.0-40); AST/SGOT 14 U/L (<34); BILIRUBIN,TOTAL 0.5 MG/DL (0.3-1.2); BLOOD UREA NITROGEN 28 MG/DL (9-23); CALCIUM LEVEL 8.2 MG/DL (8.3-10.6); CARBON DIOXIDE LEVEL 33 MMOL/L (20-31); CHLORIDE LEVEL 97 MMOL/L (98-107); GLOMERULAR FILTRATION RATE > 60.0 (>32); GLUCOSE, FASTING 93 MG/DL (74-106); MAGNESIUM LEVEL 1.6 MG/DL (1.8-2.4); POTASSIUM SERUM 3.7 MMOL/L (3.5-5.1); SODIUM LEVEL 136 MMOL/L (136-145); TOTAL PROTEIN 6.4 G/DL (5.7-8.2)
[2023-01-24] MEDS ORDERED: MAG SULF 1GM/100ML (MAG RUN) 1 GM in IV 1 EA IV ONE (07:35)
[2023-01-24] MEDS: ASPIRIN 81MG ENTERIC TABLET PO SCH (08:36)
[2023-01-24] MEDS: NYSTATIN 100,000 UNITS/GM TOPICAL PWD 15GM TOP SCH ×2 (08:37→20:28)
[2023-01-24] MEDS: SPIRONOLACTONE 25 MG TAB PO SCH (08:37)
[2023-01-24] MEDS: ACETAMINOPHEN TAB 650MG DOSE (2X325MG) PO PRN (10:08)
[2023-01-24 14:00] VITALS: BP 84/53
[2023-01-24 20:00] VITALS: BP 112/54
[2023-01-24] MEDS: SERTRALINE 100 MG TAB PO SCH (20:28)
[2023-01-24] MEDS: ARIPiprazole 2 MG TAB PO SCH (20:28)
[2023-01-24] MEDS: ATORVASTATIN 10 MG TAB PO SCH (20:28)
[2023-01-25 06:00] VITALS: BP 110/56
[2023-01-25] MEDS: HEPARIN SOD (PORCINE) 5000UNITS/ML 1ML VIAL/SYRINGE SC SCH ×3 (06:06→21:08)
[2023-01-25 06:25] LABS: BASO % 0.4 % (0.0-1.0); EOS # 0.1 10^3/uL (0.0-0.5); EOS % 2.3 % (0.0-3.0); HEMATOCRIT 33.4 % (36.0-47.0); HEMOGLOBIN 10.5 g/dl (12.0-15.5); LYMPH % 18.4 % (24.0-44.0); MEAN CORPUSCULAR HEMOGLOBIN 29.7 pg (27.0-33.0); MEAN CORPUSCULAR HGB CONC 31.4 g/dl (32.0-36.5); MEAN CORPUSCULAR VOLUME 94.6 fl (80.0-96.0); MONO # 0.5 10^3/uL (0.0-0.8); MONO % 9.1 % (2.0-8.0); NEUTROPHILS # 3.6 10^3/uL (1.5-8.5); NEUTROPHILS % 69.4 % (36.0-66.0); PLATELET COUNT, AUTOMATED 118 10^3/uL (150-450); RED BLOOD COUNT 3.53 10^6/uL (4.00-5.40); WHITE BLOOD COUNT 5.2 10^3/uL (4.0-10.0)
[2023-01-25 06:56] LABS: ALBUMIN 2.9 G/DL (3.2-5.2); ALKALINE PHOSPHATASE 77 U/L (46-116); ALT/SGPT 11 U/L (7.0-40); AST/SGOT 17 U/L (<34); BILIRUBIN,TOTAL 0.4 MG/DL (0.3-1.2); BLOOD UREA NITROGEN 27 MG/DL (9-23); CALCIUM LEVEL 8.2 MG/DL (8.3-10.6); CARBON DIOXIDE LEVEL 32 MMOL/L (20-31); CHLORIDE LEVEL 99 MMOL/L (98-107); CREATININE FOR GFR 0.77 MG/DL (0.55-1.30); GLOMERULAR FILTRATION RATE > 60.0 (>32); GLUCOSE, FASTING 105 MG/DL (74-106); MAGNESIUM LEVEL 1.7 MG/DL (1.8-2.4); POTASSIUM SERUM 3.7 MMOL/L (3.5-5.1); SODIUM LEVEL 133 MMOL/L (136-145); TOTAL PROTEIN 6.2 G/DL (5.7-8.2)
[2023-01-25] MEDS ORDERED: MAGNESIUM OXIDE 400MG TAB (MAG-OX) PO ONE (07:45)
[2023-01-25] MEDS ORDERED: FUROSEMIDE 40MG/4ML VIAL IV SCH (09:00)
[2023-01-25] MEDS: SPIRONOLACTONE 25 MG TAB PO SCH (09:00)
[2023-01-25] MEDS: ASPIRIN 81MG ENTERIC TABLET PO SCH (09:08)
[2023-01-25] MEDS: NYSTATIN 100,000 UNITS/GM TOPICAL PWD 15GM TOP SCH ×2 (09:19→20:07)
[2023-01-25 14:00] VITALS: BP 104/54
[2023-01-25 20:00] VITALS: BP 100/54
[2023-01-25] MEDS: ATORVASTATIN 10 MG TAB PO SCH (20:07)
[2023-01-25] MEDS: SERTRALINE 100 MG TAB PO SCH (20:07)
[2023-01-25] MEDS: ARIPiprazole 2 MG TAB PO SCH (20:07)
[2023-01-26 05:29] VITALS: BP 98/54
[2023-01-26] MEDS: HEPARIN SOD (PORCINE) 5000UNITS/ML 1ML VIAL/SYRINGE SC SCH (05:31)
[2023-01-26 06:40] LABS: BASO % 0.2 % (0.0-1.0); EOS # 0.1 10^3/uL (0.0-0.5); EOS % 2.5 % (0.0-3.0); HEMATOCRIT 32.1 % (36.0-47.0); LYMPH # 0.9 10^3/uL (1.5-5.0); LYMPH % 17.8 % (24.0-44.0); MEAN CORPUSCULAR HEMOGLOBIN 29.5 pg (27.0-33.0); MEAN CORPUSCULAR HGB CONC 31.2 g/dl (32.0-36.5); MEAN CORPUSCULAR VOLUME 94.7 fl (80.0-96.0); MONO # 0.5 10^3/uL (0.0-0.8); NEUTROPHILS # 3.7 10^3/uL (1.5-8.5); NEUTROPHILS % 70.1 % (36.0-66.0); PLATELET COUNT, AUTOMATED 124 10^3/uL (150-450); RED BLOOD COUNT 3.39 10^6/uL (4.00-5.40); WHITE BLOOD COUNT 5.2 10^3/uL (4.0-10.0)
[2023-01-26 07:21] LABS: ALBUMIN 2.9 G/DL (3.2-5.2); ALKALINE PHOSPHATASE 72 U/L (46-116); ALT/SGPT 12 U/L (7.0-40); AST/SGOT 18 U/L (<34); BILIRUBIN,TOTAL 0.4 MG/DL (0.3-1.2); BLOOD UREA NITROGEN 26 MG/DL (9-23); CALCIUM LEVEL 8.2 MG/DL (8.3-10.6); CARBON DIOXIDE LEVEL 34 MMOL/L (20-31); CHLORIDE LEVEL 97 MMOL/L (98-107); CREATININE FOR GFR 0.69 MG/DL (0.55-1.30); GLOMERULAR FILTRATION RATE > 60.0 (>32); GLUCOSE, FASTING 107 MG/DL (74-106); MAGNESIUM LEVEL 1.7 MG/DL (1.8-2.4); POTASSIUM SERUM 3.8 MMOL/L (3.5-5.1); SODIUM LEVEL 137 MMOL/L (136-145); TOTAL PROTEIN 6.3 G/DL (5.7-8.2)
[2023-01-26] MEDS ORDERED: MAGNESIUM OXIDE 400MG TAB (MAG-OX) PO ONE (08:00)
[2023-01-26] MEDS ORDERED: DOXYCYCLINE HYCLATE 100MG TABLET PO SCH (09:00)
[2023-01-26] MEDS: SPIRONOLACTONE 25 MG TAB PO SCH (09:00)
[2023-01-26] MEDS ORDERED: FUROSEMIDE 40 MG TAB PO SCH (09:00)
[2023-01-26] MEDS: ASPIRIN 81MG ENTERIC TABLET PO SCH (09:07)
[2023-01-26] MEDS: NYSTATIN 100,000 UNITS/GM TOPICAL PWD 15GM TOP SCH (09:11)
[2023-01-26] MEDS: ACETAMINOPHEN TAB 650MG DOSE (2X325MG) PO PRN (09:53)
[2023-01-26] MEDS ORDERED: DOXY100T PO (09:53)
== END 2023-01-26 13:18 | DRG 291 ==
LOC: EDBD 13:27 → M ED 13:27 → M ED INP 17:08 → ENRESERV 17:25 → M MSPAV 18:25
PROVIDERS: ADMIT Family Medicine; ATTEND Family Medicine
DX: I11.0 Hypertensive heart disease with heart failure (principal); I50.23 Acute on chronic systolic (congestive) heart failure; L03.116 Cellulitis of left lower limb; I48.0 Paroxysmal atrial fibrillation; F41.8 Other specified anxiety disorders; Z79.82 Long term (current) use of aspirin; Z79.899 Other long term (current) drug therapy; Z20.822 Contact with and (suspected) exposure to COVID-19; Z88.0 Allergy status to penicillin; Z74.1 Need for assistance with personal care

== ENCOUNTER 2023-01-31 16:05 | Inpatient (IN) | payer MEDICARE ==
[~2023-01-31] VITALS: Ht 167.6 cm; Wt 90.1 kg
[~2023-01-31 16:05] MED LIST changes: -ACET-907 PO; -ALDA50TA2 PO; -FURO80TA2 PO; -MAGN400T2 PO; -MIDO5TA PO; -NYST1POW9 TOP; -PANT40TA29 PO
[2023-01-31] MEDS ORDERED: methylPREDNISolone 125MG 2ML VIAL IV ONE (16:30)
[2023-01-31] MEDS ORDERED: IPRATROPIUM 0.5MG/ALBUTEROL 2.5MG INH SOL UD 3ML (DUONEB) NEB ONE (16:30)
[2023-01-31] MEDS ORDERED: ACETAMINOPHEN 500 MG TAB PO ONE (16:35)
[2023-01-31 17:25] LABS: BASO % 0.4 % (0.0-1.0); HEMATOCRIT 34.7 % (36.0-47.0); LYMPH # 0.9 10^3/uL (1.5-5.0); LYMPH % 8.3 % (24.0-44.0); MEAN CORPUSCULAR HGB CONC 31.7 g/dl (32.0-36.5); MEAN CORPUSCULAR VOLUME 94.6 fl (80.0-96.0); MONO # 0.9 10^3/uL (0.0-0.8); MONO % 8.1 % (2.0-8.0); NEUTROPHILS % 82.5 % (36.0-66.0); PLATELET COUNT, AUTOMATED 158 10^3/uL (150-450); RED BLOOD COUNT 3.67 10^6/uL (4.00-5.40); WHITE BLOOD COUNT 10.9 10^3/uL (4.0-10.0)
[2023-01-31 17:39] LABS: INR 1.38; PROTHROMBIN TIME 17.2 SECONDS (12.5-14.5)
[2023-01-31 17:54] LABS: ALBUMIN 3.2 G/DL (3.2-5.2); BILIRUBIN,DIRECT 0.3 MG/DL (<0.4); BILIRUBIN,TOTAL 0.5 MG/DL (0.3-1.2); CALCIUM LEVEL 8.6 MG/DL (8.3-10.6); GLOMERULAR FILTRATION RATE 55.8 (>32); POTASSIUM SERUM 4.6 MMOL/L (3.5-5.1); TOTAL PROTEIN 6.7 G/DL (5.7-8.2)
[2023-01-31] MEDS ORDERED: FUROSEMIDE 40MG/4ML VIAL IV ONE (17:55)
[2023-01-31] MEDS ORDERED: ISOVUE-370 76% 100ML VIAL As Ordered ONE (18:09)
[2023-01-31] MEDS ORDERED: METOPROLOL 5 MG/5 ML VIAL IV PRN (20:05)
[2023-01-31] MEDS ORDERED: LevoFLOXacin IV 500 MG in IV 1 EA IV ONE (20:05)
[2023-01-31 20:37] VITALS: BP 113/66
[2023-01-31 21:10] LABS: BLOOD UREA NITROGEN 46 MG/DL (9-23); CALCIUM LEVEL 8.3 MG/DL (8.3-10.6); CARBON DIOXIDE LEVEL 30 MMOL/L (20-31); CHLORIDE LEVEL 92 MMOL/L (98-107); CREATININE FOR GFR 1.01 MG/DL (0.55-1.30); GLOMERULAR FILTRATION RATE 55.2 (>32); GLUCOSE, FASTING 120 MG/DL (74-106); POTASSIUM SERUM 4.4 MMOL/L (3.5-5.1); SODIUM LEVEL 130 MMOL/L (136-145)
[2023-01-31] MEDS ORDERED: NYST1POW9 TOP (21:17)
[2023-01-31] MEDS ORDERED: ACET-907 PO (21:23)
[2023-01-31] MEDS ORDERED: ACETAMINOPHEN 1000MG 100ML IV BAG IV ONE (21:25)
[2023-01-31] MEDS ORDERED: HOME MED LIST COMPLETE! XX SCH (21:25)
[2023-01-31 21:54] LABS: ABG BASE EXCESS 5.2 (-2.0-2.0); ABG HCO3 30.2 MEQ/L (22.0-26.0); ABG O2 SATURATION 98.3 % (95.0-99.0); ABG PARTIAL PRESSURE CO2 46.1 mmHg (35.0-45.0); ABG PARTIAL PRESSURE O2 112.6 mmHg (75.0-100.0); ABG STANDARD HCO3 29.1 MEQ/L (22.0-26.0); ABG TOTAL CO2 31.6 MEQ/L (23.0-31.0); ABG pH (ARTERIAL) 7.434 UNITS (7.350-7.450)
[2023-01-31 22:02] LABS: OSMOLALITY URINE 378 MOSM/KG (50-1400)
[2023-01-31 22:11] LABS: APPEARANCE, URINE CLOUDY (CLEAR); BACTERIA, URINE AUTO 1+ (NEGATIVE); BILIRUBIN, URINE AUTO NEGATIVE (NEGATIVE); BLOOD, URINE BLOOD 2+ (NEGATIVE); COLOR, URINE YELLOW (YELLOW); GLUCOSE, URINE (UA) AUTO NEGATIVE (NEGATIVE); KETONE, URINE AUTO NEGATIVE (NEGATIVE); LEUKOCYTE ESTERASE, URINE AUTO NEGATIVE (NEGATIVE); NITRITE, URINE AUTO NEGATIVE (NEGATIVE); PROTEIN, URINE AUTO NEGATIVE (NEGATIVE); RBC, URINE AUTO 17 /HPF (0-3); SPECIFIC GRAVITY URINE AUTO 1.019 (1.002-1.035); SQUAMOUS EPITHELIAL CELL UR AU 1 /HPF (0-6); UROBILINOGEN, URINE AUTO 0.2 mg/dL (0.0-2.0); WBC, URINE AUTO 3 /HPF (0-3)
[2023-01-31 22:23] LABS: SODIUM,RANDOM URINE 61 MMOL/L
[2023-02-01] VITALS (7 sets, daily range): BP systolic 94–113; BP diastolic 56–88
[2023-02-01 01:04] LABS: HEPATITIS B SURFACE ANTIGEN NEGATIVE (NEGATIVE)
[2023-02-01 01:25] LABS: HEPATITIS B CORE ANTIBODY IGM NEGATIVE (NEGATIVE)
[2023-02-01 06:11] LABS: HEMATOCRIT 33.3 % (36.0-47.0); HEMOGLOBIN 10.6 g/dl (12.0-15.5); MEAN CORPUSCULAR HEMOGLOBIN 29.8 pg (27.0-33.0); MEAN CORPUSCULAR HGB CONC 31.8 g/dl (32.0-36.5); MEAN CORPUSCULAR VOLUME 93.5 fl (80.0-96.0); PLATELET COUNT, AUTOMATED 142 10^3/uL (150-450); RED BLOOD COUNT 3.56 10^6/uL (4.00-5.40); WHITE BLOOD COUNT 5.8 10^3/uL (4.0-10.0)
[2023-02-01 06:34] LABS: ALKALINE PHOSPHATASE 77 U/L (46-116); ALT/SGPT 91 U/L (7.0-40); AST/SGOT 108 U/L (<34); BILIRUBIN,TOTAL 0.5 MG/DL (0.3-1.2); BLOOD UREA NITROGEN 45 MG/DL (9-23); CALCIUM LEVEL 8.3 MG/DL (8.3-10.6); CARBON DIOXIDE LEVEL 31 MMOL/L (20-31); CHLORIDE LEVEL 92 MMOL/L (98-107); CREATININE FOR GFR 0.93 MG/DL (0.55-1.30); GLOMERULAR FILTRATION RATE > 60.0 (>32); GLUCOSE, FASTING 142 MG/DL (74-106); MAGNESIUM LEVEL 1.6 MG/DL (1.8-2.4); POTASSIUM SERUM 4.2 MMOL/L (3.5-5.1); SODIUM LEVEL 131 MMOL/L (136-145); TOTAL PROTEIN 6.2 G/DL (5.7-8.2)
[2023-02-01] MEDS ORDERED: FUROSEMIDE 40MG/4ML VIAL IV SCH (09:00)
[2023-02-01] MEDS ORDERED: LevoFLOXacin 750 MG TABLET PO SCH (09:00)
[2023-02-01] MEDS: FUROSEMIDE 40MG/4ML VIAL IV SCH ×2 (09:00→17:17)
[2023-02-01] MEDS: MAG SULF 1GM/100ML (MAG RUN) 1 GM in IV 1 EA IV SCH ×2 (09:01→10:36)
[2023-02-01] MEDS ORDERED: ALBUTEROL 90 MCG/ACT 8GM HFA INHALER INH PRN (10:05)
[2023-02-01] MEDS: VITAMIN D 1,000 INTERNATIONAL UNITS TABLET PO SCH (11:51)
[2023-02-01] MEDS: CYANOCOBALAMIN 500 MCG TAB PO SCH (11:51)
[2023-02-01] MEDS: ASPIRIN 81MG ENTERIC TABLET PO SCH (11:51)
[2023-02-01] MEDS: PANTOPRAZOLE 40MG VIAL IV SCH (11:51)
[2023-02-01] MEDS: LevoFLOXacin 750 MG TABLET PO SCH (14:48)
[2023-02-01] MEDS: NYSTATIN 100,000 UNITS/GM TOPICAL PWD 15GM TOP SCH ×2 (14:49→20:26)
[2023-02-01] MEDS ORDERED: LevoFLOXacin IV 250 MG in IV 1 EA IV SCH (18:00)
[2023-02-01] MEDS: ATORVASTATIN 10 MG TAB PO SCH (20:25)
[2023-02-01] MEDS: ARIPiprazole 2 MG TAB PO SCH (20:25)
[2023-02-01] MEDS: MIRALAX *UNIT DOSE* 17GM PACKET PO SCH (20:26)
[2023-02-01] MEDS: MAGNESIUM OXIDE 400MG TAB (MAG-OX) PO SCH (20:26)
[2023-02-01] MEDS: SERTRALINE 100 MG TAB PO SCH (20:26)
[2023-02-02] VITALS (19 sets, daily range): BP systolic 88–113; BP diastolic 56–72; O2SAT 82–99
[2023-02-02] MEDS: FUROSEMIDE 40MG/4ML VIAL IV SCH ×2 (01:30→08:46)
[2023-02-02 06:45] LABS: BASO % 0.1 % (0.0-1.0); EOS % 0.1 % (0.0-3.0); HEMOGLOBIN 10.7 g/dl (12.0-15.5); LYMPH # 0.7 10^3/uL (1.5-5.0); LYMPH % 7.9 % (24.0-44.0); MEAN CORPUSCULAR HEMOGLOBIN 29.4 pg (27.0-33.0); MEAN CORPUSCULAR HGB CONC 30.6 g/dl (32.0-36.5); MEAN CORPUSCULAR VOLUME 96.2 fl (80.0-96.0); MONO # 0.8 10^3/uL (0.0-0.8); MONO % 9.6 % (2.0-8.0); NEUTROPHILS # 7.1 10^3/uL (1.5-8.5); NEUTROPHILS % 81.5 % (36.0-66.0); PLATELET COUNT, AUTOMATED 170 10^3/uL (150-450); RED BLOOD COUNT 3.64 10^6/uL (4.00-5.40); WHITE BLOOD COUNT 8.8 10^3/uL (4.0-10.0)
[2023-02-02 07:12] LABS: ALKALINE PHOSPHATASE 78 U/L (46-116); ALT/SGPT 86 U/L (7.0-40); AST/SGOT 70 U/L (<34); BILIRUBIN,TOTAL 0.4 MG/DL (0.3-1.2); BLOOD UREA NITROGEN 45 MG/DL (9-23); CALCIUM LEVEL 8.2 MG/DL (8.3-10.6); CARBON DIOXIDE LEVEL 34 MMOL/L (20-31); CHLORIDE LEVEL 92 MMOL/L (98-107); CREATININE FOR GFR 0.89 MG/DL (0.55-1.30); GLOMERULAR FILTRATION RATE > 60.0 (>32); GLUCOSE, FASTING 110 MG/DL (74-106); MAGNESIUM LEVEL 1.7 MG/DL (1.8-2.4); POTASSIUM SERUM 3.7 MMOL/L (3.5-5.1); SODIUM LEVEL 132 MMOL/L (136-145); TOTAL PROTEIN 6.4 G/DL (5.7-8.2)
[2023-02-02] MEDS: CYANOCOBALAMIN 500 MCG TAB PO SCH (08:45)
[2023-02-02] MEDS: ENOXAPARIN 40MG/0.4ML SYRINGE (J1650 PER 10MG) SC SCH (08:45)
[2023-02-02] MEDS: ASPIRIN 81MG ENTERIC TABLET PO SCH (08:45)
[2023-02-02] MEDS: MIRALAX *UNIT DOSE* 17GM PACKET PO SCH ×2 (08:45→20:05)
[2023-02-02] MEDS: NYSTATIN 100,000 UNITS/GM TOPICAL PWD 15GM TOP SCH ×2 (08:46→20:05)
[2023-02-02] MEDS: MAGNESIUM OXIDE 400MG TAB (MAG-OX) PO SCH ×2 (08:46→20:05)
[2023-02-02] MEDS: VITAMIN D 1,000 INTERNATIONAL UNITS TABLET PO SCH (08:46)
[2023-02-02] MEDS ORDERED: POTASSIUM CHLORIDE 10MEQ SR TABLET PO ONE (10:30)
[2023-02-02] MEDS: PANTOPRAZOLE 40MG VIAL IV SCH (12:00)
[2023-02-02] MEDS: FUROSEMIDE injection 250 MG in D5W 225 ML IV SCH (12:02)
[2023-02-02] MEDS: ATORVASTATIN 10 MG TAB PO SCH (20:04)
[2023-02-02] MEDS: ARIPiprazole 2 MG TAB PO SCH (20:04)
[2023-02-02] MEDS: SERTRALINE 100 MG TAB PO SCH (20:05)
[2023-02-02] MEDS ORDERED: ONDANSETRON 4MG 2ML VIAL IV ONE (22:00)
[2023-02-03] VITALS (24 sets, daily range): BP systolic 94–130; BP diastolic 52–80; O2SAT 78–99
[2023-02-03 05:27] LABS: EOS % 0.1 % (0.0-3.0); HEMATOCRIT 36.2 % (36.0-47.0); HEMOGLOBIN 10.8 g/dl (12.0-15.5); LYMPH # 0.5 10^3/uL (1.5-5.0); LYMPH % 6.9 % (24.0-44.0); MEAN CORPUSCULAR HEMOGLOBIN 29.3 pg (27.0-33.0); MEAN CORPUSCULAR HGB CONC 29.8 g/dl (32.0-36.5); MEAN CORPUSCULAR VOLUME 98.4 fl (80.0-96.0); MONO # 0.7 10^3/uL (0.0-0.8); MONO % 9.6 % (2.0-8.0); NEUTROPHILS # 5.8 10^3/uL (1.5-8.5); NEUTROPHILS % 82.8 % (36.0-66.0); PLATELET COUNT, AUTOMATED 157 10^3/uL (150-450); RED BLOOD COUNT 3.68 10^6/uL (4.00-5.40)
[2023-02-03] MEDS: LevoFLOXacin 750 MG TABLET PO SCH (05:38)
[2023-02-03 05:50] LABS: ALBUMIN 3.1 G/DL (3.2-5.2); ALKALINE PHOSPHATASE 82 U/L (46-116); ALT/SGPT 88 U/L (7.0-40); AST/SGOT 76 U/L (<34); BILIRUBIN,TOTAL 0.4 MG/DL (0.3-1.2); BLOOD UREA NITROGEN 44 MG/DL (9-23); CARBON DIOXIDE LEVEL 36 MMOL/L (20-31); CHLORIDE LEVEL 92 MMOL/L (98-107); CREATININE FOR GFR 0.89 MG/DL (0.55-1.30); GLOMERULAR FILTRATION RATE > 60.0 (>32); GLUCOSE, FASTING 135 MG/DL (74-106); MAGNESIUM LEVEL 1.7 MG/DL (1.8-2.4); POTASSIUM SERUM 4.4 MMOL/L (3.5-5.1); SODIUM LEVEL 133 MMOL/L (136-145); TOTAL PROTEIN 6.5 G/DL (5.7-8.2)
[2023-02-03] MEDS: NYSTATIN 100,000 UNITS/GM TOPICAL PWD 15GM TOP SCH ×2 (11:21→20:33)
[2023-02-03] MEDS: PANTOPRAZOLE 40MG VIAL IV SCH (11:22)
[2023-02-03] MEDS: ONDANSETRON 4MG 2ML VIAL IV PRN (11:23)
[2023-02-03] MEDS: FUROSEMIDE injection 250 MG in D5W 225 ML IV SCH (11:25)
[2023-02-03] MEDS: ASPIRIN 81MG ENTERIC TABLET PO SCH (11:43)
[2023-02-03] MEDS: VITAMIN D 1,000 INTERNATIONAL UNITS TABLET PO SCH (11:43)
[2023-02-03] MEDS: MAGNESIUM OXIDE 400MG TAB (MAG-OX) PO SCH ×2 (11:43→20:32)
[2023-02-03] MEDS: CYANOCOBALAMIN 500 MCG TAB PO SCH (11:43)
[2023-02-03] MEDS: ENOXAPARIN 40MG/0.4ML SYRINGE (J1650 PER 10MG) SC SCH (11:43)
[2023-02-03] MEDS: MIRALAX *UNIT DOSE* 17GM PACKET PO SCH ×2 (11:44→20:31)
[2023-02-03] MEDS: MIDODRINE 5 MG TAB PO SCH ×2 (13:13→16:58)
[2023-02-03] MEDS: ARIPiprazole 2 MG TAB PO SCH (20:32)
[2023-02-03] MEDS: SERTRALINE 100 MG TAB PO SCH (20:32)
[2023-02-03] MEDS: ATORVASTATIN 10 MG TAB PO SCH (20:32)
[2023-02-04] VITALS (41 sets, daily range): BP systolic 102–132; BP diastolic 56–70; O2SAT 83–100
[2023-02-04 05:44] LABS: BASO % 0.2 % (0.0-1.0); EOS % 0.3 % (0.0-3.0); HEMATOCRIT 34.3 % (36.0-47.0); HEMOGLOBIN 10.2 g/dl (12.0-15.5); LYMPH # 0.6 10^3/uL (1.5-5.0); LYMPH % 8.9 % (24.0-44.0); MEAN CORPUSCULAR HEMOGLOBIN 29.7 pg (27.0-33.0); MEAN CORPUSCULAR HGB CONC 29.7 g/dl (32.0-36.5); MONO # 0.6 10^3/uL (0.0-0.8); MONO % 9.2 % (2.0-8.0); NEUTROPHILS # 5.1 10^3/uL (1.5-8.5); NEUTROPHILS % 80.6 % (36.0-66.0); PLATELET COUNT, AUTOMATED 151 10^3/uL (150-450); RED BLOOD COUNT 3.43 10^6/uL (4.00-5.40); WHITE BLOOD COUNT 6.3 10^3/uL (4.0-10.0)
[2023-02-04 06:15] LABS: BILIRUBIN,TOTAL 0.5 MG/DL (0.3-1.2); CALCIUM LEVEL 7.9 MG/DL (8.3-10.6); CREATININE FOR GFR 0.94 MG/DL (0.55-1.30); MAGNESIUM LEVEL 1.9 MG/DL (1.8-2.4); POTASSIUM SERUM 3.8 MMOL/L (3.5-5.1); TOTAL PROTEIN 6.3 G/DL (5.7-8.2)
[2023-02-04] MEDS ORDERED: POTASSIUM CHLORIDE 10MEQ SR TABLET PO ONE (07:30)
[2023-02-04] MEDS: ENOXAPARIN 40MG/0.4ML SYRINGE (J1650 PER 10MG) SC SCH (08:21)
[2023-02-04] MEDS: MIRALAX *UNIT DOSE* 17GM PACKET PO SCH ×2 (08:21→21:19)
[2023-02-04] MEDS: CYANOCOBALAMIN 500 MCG TAB PO SCH (08:22)
[2023-02-04] MEDS: MIDODRINE 5 MG TAB PO SCH ×3 (08:22→16:32)
[2023-02-04] MEDS: ASPIRIN 81MG ENTERIC TABLET PO SCH (08:22)
[2023-02-04] MEDS: VITAMIN D 1,000 INTERNATIONAL UNITS TABLET PO SCH (08:22)
[2023-02-04] MEDS: MAGNESIUM OXIDE 400MG TAB (MAG-OX) PO SCH ×2 (08:22→21:18)
[2023-02-04] MEDS: NYSTATIN 100,000 UNITS/GM TOPICAL PWD 15GM TOP SCH ×2 (08:23→21:18)
[2023-02-04] MEDS: FUROSEMIDE injection 250 MG in D5W 225 ML IV SCH (11:52)
[2023-02-04] MEDS: PANTOPRAZOLE 40MG VIAL IV SCH (11:54)
[2023-02-04] MEDS: PANTOPRAZOLE 40MG TAB (PROTONIX) PO SCH (14:34)
[2023-02-04] MEDS: ONDANSETRON 4MG 2ML VIAL IV PRN (17:39)
[2023-02-04] MEDS: SERTRALINE 100 MG TAB PO SCH (21:18)
[2023-02-04] MEDS: ATORVASTATIN 10 MG TAB PO SCH (21:18)
[2023-02-04] MEDS: ARIPiprazole 2 MG TAB PO SCH (21:18)
[2023-02-05] VITALS (35 sets, daily range): BP systolic 97–117; BP diastolic 52–58; O2SAT 83–99
[2023-02-05] MEDS: LevoFLOXacin 750 MG TABLET PO SCH (05:38)
[2023-02-05 05:57] LABS: ABG BASE EXCESS 11.7 (-2.0-2.0); ABG HCO3 39.3 MEQ/L (22.0-26.0); ABG O2 SATURATION 98.6 % (95.0-99.0); ABG PARTIAL PRESSURE O2 128.7 mmHg (75.0-100.0); ABG STANDARD HCO3 35.5 MEQ/L (22.0-26.0); ABG TOTAL CO2 41.3 MEQ/L (23.0-31.0)
[2023-02-05 06:00] LABS: ABG PARTIAL PRESSURE CO2 67.9 mmHg (35.0-45.0)
[2023-02-05 06:39] LABS: BASO % 0.2 % (0.0-1.0); EOS % 0.6 % (0.0-3.0); HEMATOCRIT 36.6 % (36.0-47.0); HEMOGLOBIN 10.6 g/dl (12.0-15.5); LYMPH # 0.6 10^3/uL (1.5-5.0); LYMPH % 9.3 % (24.0-44.0); MEAN CORPUSCULAR HEMOGLOBIN 28.8 pg (27.0-33.0); MEAN CORPUSCULAR VOLUME 99.5 fl (80.0-96.0); MONO # 0.5 10^3/uL (0.0-0.8); MONO % 7.6 % (2.0-8.0); NEUTROPHILS # 5.2 10^3/uL (1.5-8.5); NEUTROPHILS % 81.7 % (36.0-66.0); PLATELET COUNT, AUTOMATED 148 10^3/uL (150-450); RED BLOOD COUNT 3.68 10^6/uL (4.00-5.40); WHITE BLOOD COUNT 6.3 10^3/uL (4.0-10.0)
[2023-02-05 07:03] LABS: ALKALINE PHOSPHATASE 80 U/L (46-116); ALT/SGPT 99 U/L (7.0-40); AST/SGOT 65 U/L (<34); BILIRUBIN,TOTAL 0.5 MG/DL (0.3-1.2); BLOOD UREA NITROGEN 38 MG/DL (9-23); CALCIUM LEVEL 8.1 MG/DL (8.3-10.6); CARBON DIOXIDE LEVEL > 40.0 MMOL/L (20-31); CHLORIDE LEVEL 92 MMOL/L (98-107); CREATININE FOR GFR 0.92 MG/DL (0.55-1.30); GLOMERULAR FILTRATION RATE > 60.0 (>32); GLUCOSE, FASTING 108 MG/DL (74-106); MAGNESIUM LEVEL 1.9 MG/DL (1.8-2.4); POTASSIUM SERUM 3.8 MMOL/L (3.5-5.1); SODIUM LEVEL 136 MMOL/L (136-145); TOTAL PROTEIN 6.1 G/DL (5.7-8.2)
[2023-02-05] MEDS: MIRALAX *UNIT DOSE* 17GM PACKET PO SCH ×2 (08:30→22:02)
[2023-02-05] MEDS: ENOXAPARIN 40MG/0.4ML SYRINGE (J1650 PER 10MG) SC SCH (08:30)
[2023-02-05] MEDS: PANTOPRAZOLE 40MG TAB (PROTONIX) PO SCH (08:31)
[2023-02-05] MEDS: ASPIRIN 81MG ENTERIC TABLET PO SCH (08:31)
[2023-02-05] MEDS: CYANOCOBALAMIN 500 MCG TAB PO SCH (08:31)
[2023-02-05] MEDS: MAGNESIUM OXIDE 400MG TAB (MAG-OX) PO SCH ×2 (08:31→22:01)
[2023-02-05] MEDS: NYSTATIN 100,000 UNITS/GM TOPICAL PWD 15GM TOP SCH ×2 (08:31→22:03)
[2023-02-05] MEDS: VITAMIN D 1,000 INTERNATIONAL UNITS TABLET PO SCH (08:31)
[2023-02-05] MEDS: MIDODRINE 5 MG TAB PO SCH ×3 (08:31→16:46)
[2023-02-05] MEDS: FUROSEMIDE injection 250 MG in D5W 225 ML IV SCH (11:16)
[2023-02-05] MEDS: POTASSIUM CHLORIDE 10MEQ SR TABLET PO SCH ×2 (11:54→22:02)
[2023-02-05] MEDS: SERTRALINE 100 MG TAB PO SCH (22:02)
[2023-02-05] MEDS: ATORVASTATIN 10 MG TAB PO SCH (22:02)
[2023-02-05] MEDS: ARIPiprazole 2 MG TAB PO SCH (22:02)
[2023-02-06] VITALS (28 sets, daily range): BP systolic 98–117; BP diastolic 55–66; O2SAT 89–98
[2023-02-06 06:57] LABS: BASO % 0.1 % (0.0-1.0); EOS # 0.1 10^3/uL (0.0-0.5); EOS % 0.8 % (0.0-3.0); HEMATOCRIT 35.2 % (36.0-47.0); HEMOGLOBIN 10.5 g/dl (12.0-15.5); LYMPH # 0.7 10^3/uL (1.5-5.0); LYMPH % 8.8 % (24.0-44.0); MEAN CORPUSCULAR HEMOGLOBIN 29.5 pg (27.0-33.0); MEAN CORPUSCULAR HGB CONC 29.8 g/dl (32.0-36.5); MEAN CORPUSCULAR VOLUME 98.9 fl (80.0-96.0); MONO # 0.7 10^3/uL (0.0-0.8); MONO % 9.4 % (2.0-8.0); NEUTROPHILS % 80.4 % (36.0-66.0); PLATELET COUNT, AUTOMATED 144 10^3/uL (150-450); RED BLOOD COUNT 3.56 10^6/uL (4.00-5.40); WHITE BLOOD COUNT 7.4 10^3/uL (4.0-10.0)
[2023-02-06 07:24] LABS: ALBUMIN 2.9 G/DL (3.2-5.2); ALKALINE PHOSPHATASE 86 U/L (46-116); ALT/SGPT 86 U/L (7.0-40); AST/SGOT 50 U/L (<34); BILIRUBIN,TOTAL 0.5 MG/DL (0.3-1.2); BLOOD UREA NITROGEN 35 MG/DL (9-23); CALCIUM LEVEL 8.3 MG/DL (8.3-10.6); CARBON DIOXIDE LEVEL > 40.0 MMOL/L (20-31); CHLORIDE LEVEL 94 MMOL/L (98-107); CREATININE FOR GFR 0.94 MG/DL (0.55-1.30); GLUCOSE, FASTING 120 MG/DL (74-106); MAGNESIUM LEVEL 1.9 MG/DL (1.8-2.4); SODIUM LEVEL 137 MMOL/L (136-145); TOTAL PROTEIN 6.1 G/DL (5.7-8.2)
[2023-02-06] MEDS: MAGNESIUM OXIDE 400MG TAB (MAG-OX) PO SCH ×2 (08:29→21:26)
[2023-02-06] MEDS: ASPIRIN 81MG ENTERIC TABLET PO SCH (08:29)
[2023-02-06] MEDS: VITAMIN D 1,000 INTERNATIONAL UNITS TABLET PO SCH (08:29)
[2023-02-06] MEDS: ENOXAPARIN 40MG/0.4ML SYRINGE (J1650 PER 10MG) SC SCH (08:29)
[2023-02-06] MEDS: NYSTATIN 100,000 UNITS/GM TOPICAL PWD 15GM TOP SCH ×2 (08:29→21:27)
[2023-02-06] MEDS: CYANOCOBALAMIN 500 MCG TAB PO SCH (08:29)
[2023-02-06] MEDS: PANTOPRAZOLE 40MG TAB (PROTONIX) PO SCH (08:29)
[2023-02-06] MEDS: MIRALAX *UNIT DOSE* 17GM PACKET PO SCH ×2 (08:30→21:26)
[2023-02-06] MEDS: MIDODRINE 5 MG TAB PO SCH ×3 (08:30→16:59)
[2023-02-06] MEDS: POTASSIUM CHLORIDE 10MEQ SR TABLET PO SCH ×2 (11:51→21:26)
[2023-02-06] MEDS: FUROSEMIDE injection 250 MG in D5W 225 ML IV SCH (11:52)
[2023-02-06 12:19] LABS: ABG BASE EXCESS 8.1 (-2.0-2.0); ABG HCO3 34.9 MEQ/L (22.0-26.0); ABG O2 SATURATION 98.7 % (95.0-99.0); ABG PARTIAL PRESSURE O2 134.3 mmHg (75.0-100.0); ABG STANDARD HCO3 31.9 MEQ/L (22.0-26.0); ABG TOTAL CO2 36.8 MEQ/L (23.0-31.0); ABG pH (ARTERIAL) 7.382 UNITS (7.350-7.450)
[2023-02-06 12:23] LABS: ABG PARTIAL PRESSURE CO2 60.1 mmHg (35.0-45.0)
[2023-02-06] MEDS: SERTRALINE 100 MG TAB PO SCH (21:26)
[2023-02-06] MEDS: ARIPiprazole 2 MG TAB PO SCH (21:26)
[2023-02-06] MEDS: ATORVASTATIN 10 MG TAB PO SCH (21:26)
[2023-02-07] VITALS (11 sets, daily range): BP systolic 74–109; BP diastolic 40–62; O2SAT 92–94
[2023-02-07 06:17] LABS: BASO % 0.1 % (0.0-1.0); EOS # 0.1 10^3/uL (0.0-0.5); EOS % 0.9 % (0.0-3.0); HEMATOCRIT 36.8 % (36.0-47.0); HEMOGLOBIN 10.7 g/dl (12.0-15.5); LYMPH # 0.7 10^3/uL (1.5-5.0); LYMPH % 9.5 % (24.0-44.0); MEAN CORPUSCULAR HEMOGLOBIN 29.2 pg (27.0-33.0); MEAN CORPUSCULAR HGB CONC 29.1 g/dl (32.0-36.5); MEAN CORPUSCULAR VOLUME 100.5 fl (80.0-96.0); MONO # 0.7 10^3/uL (0.0-0.8); MONO % 9.5 % (2.0-8.0); NEUTROPHILS # 5.9 10^3/uL (1.5-8.5); NEUTROPHILS % 79.5 % (36.0-66.0); PLATELET COUNT, AUTOMATED 142 10^3/uL (150-450); RED BLOOD COUNT 3.66 10^6/uL (4.00-5.40); WHITE BLOOD COUNT 7.4 10^3/uL (4.0-10.0)
[2023-02-07 06:55] LABS: ALBUMIN 2.8 G/DL (3.2-5.2); ALKALINE PHOSPHATASE 84 U/L (46-116); ALT/SGPT 68 U/L (7.0-40); AST/SGOT 34 U/L (<34); BILIRUBIN,TOTAL 0.4 MG/DL (0.3-1.2); BLOOD UREA NITROGEN 31 MG/DL (9-23); CALCIUM LEVEL 8.2 MG/DL (8.3-10.6); CARBON DIOXIDE LEVEL > 40.0 MMOL/L (20-31); CHLORIDE LEVEL 96 MMOL/L (98-107); CREATININE FOR GFR 0.94 MG/DL (0.55-1.30); GLUCOSE, FASTING 106 MG/DL (74-106); MAGNESIUM LEVEL 2.1 MG/DL (1.8-2.4); SODIUM LEVEL 139 MMOL/L (136-145)
[2023-02-07 07:38] LABS: TOTAL PROTEIN 5.9 G/DL (5.7-8.2)
[2023-02-07] MEDS: PANTOPRAZOLE 40MG TAB (PROTONIX) PO SCH (08:23)
[2023-02-07] MEDS: MIRALAX *UNIT DOSE* 17GM PACKET PO SCH ×2 (08:24→21:32)
[2023-02-07] MEDS: MAGNESIUM OXIDE 400MG TAB (MAG-OX) PO SCH ×2 (08:24→21:32)
[2023-02-07] MEDS: CYANOCOBALAMIN 500 MCG TAB PO SCH (08:24)
[2023-02-07] MEDS: ASPIRIN 81MG ENTERIC TABLET PO SCH (08:24)
[2023-02-07] MEDS: MIDODRINE 5 MG TAB PO SCH ×3 (08:24→16:16)
[2023-02-07] MEDS: VITAMIN D 1,000 INTERNATIONAL UNITS TABLET PO SCH (08:25)
[2023-02-07] MEDS: NYSTATIN 100,000 UNITS/GM TOPICAL PWD 15GM TOP SCH ×2 (08:25→21:33)
[2023-02-07] MEDS: ENOXAPARIN 40MG/0.4ML SYRINGE (J1650 PER 10MG) SC SCH (08:25)
[2023-02-07] MEDS: IPRATROPIUM 0.5MG/ALBUTEROL 2.5MG INH SOL UD 3ML (DUONEB) NEB SCH ×3 (10:42→20:27)
[2023-02-07] MEDS ORDERED: IPRATROPIUM 0.5MG/ALBUTEROL 2.5MG INH SOL UD 3ML (DUONEB) NEB SCH (14:00)
[2023-02-07] MEDS: ATORVASTATIN 10 MG TAB PO SCH (21:32)
[2023-02-07] MEDS: SERTRALINE 100 MG TAB PO SCH (21:33)
[2023-02-07] MEDS: ARIPiprazole 2 MG TAB PO SCH (21:35)
[2023-02-08] VITALS (21 sets, daily range): BP systolic 98–120; BP diastolic 56–70; O2SAT 75–100
[2023-02-08] MEDS: IPRATROPIUM 0.5MG/ALBUTEROL 2.5MG INH SOL UD 3ML (DUONEB) NEB SCH ×4 (01:30→19:51)
[2023-02-08 06:14] LABS: BASO % 0.3 % (0.0-1.0); EOS # 0.1 10^3/uL (0.0-0.5); HEMATOCRIT 35.3 % (36.0-47.0); HEMOGLOBIN 10.6 g/dl (12.0-15.5); LYMPH # 0.8 10^3/uL (1.5-5.0); LYMPH % 10.6 % (24.0-44.0); MEAN CORPUSCULAR HEMOGLOBIN 29.4 pg (27.0-33.0); MEAN CORPUSCULAR VOLUME 98.1 fl (80.0-96.0); MONO # 0.8 10^3/uL (0.0-0.8); MONO % 10.7 % (2.0-8.0); NEUTROPHILS # 5.7 10^3/uL (1.5-8.5); NEUTROPHILS % 76.9 % (36.0-66.0); PLATELET COUNT, AUTOMATED 137 10^3/uL (150-450); WHITE BLOOD COUNT 7.4 10^3/uL (4.0-10.0)
[2023-02-08 06:35] LABS: ALBUMIN 2.9 G/DL (3.2-5.2); ALKALINE PHOSPHATASE 87 U/L (46-116); ALT/SGPT 43 U/L (7.0-40); AST/SGOT 24 U/L (<34); BILIRUBIN,TOTAL 0.5 MG/DL (0.3-1.2); BLOOD UREA NITROGEN 29 MG/DL (9-23); CALCIUM LEVEL 8.4 MG/DL (8.3-10.6); CARBON DIOXIDE LEVEL 38 MMOL/L (20-31); CHLORIDE LEVEL 95 MMOL/L (98-107); CREATININE FOR GFR 0.79 MG/DL (0.55-1.30); GLOMERULAR FILTRATION RATE > 60.0 (>32); GLUCOSE, FASTING 110 MG/DL (74-106); MAGNESIUM LEVEL 2.2 MG/DL (1.8-2.4); POTASSIUM SERUM 3.3 MMOL/L (3.5-5.1); SODIUM LEVEL 138 MMOL/L (136-145)
[2023-02-08 06:54] LABS: LDH LACTATE DEHYDROGENASE 187 U/L (120-246)
[2023-02-08] MEDS: MAGNESIUM OXIDE 400MG TAB (MAG-OX) PO SCH ×2 (08:35→20:33)
[2023-02-08] MEDS: ASPIRIN 81MG ENTERIC TABLET PO SCH (08:35)
[2023-02-08] MEDS: CYANOCOBALAMIN 500 MCG TAB PO SCH (08:35)
[2023-02-08] MEDS: MIDODRINE 5 MG TAB PO SCH ×3 (08:36→16:30)
[2023-02-08] MEDS: ENOXAPARIN 40MG/0.4ML SYRINGE (J1650 PER 10MG) SC SCH (08:36)
[2023-02-08] MEDS: VITAMIN D 1,000 INTERNATIONAL UNITS TABLET PO SCH (08:36)
[2023-02-08] MEDS: PANTOPRAZOLE 40MG TAB (PROTONIX) PO SCH (08:36)
[2023-02-08] MEDS: NYSTATIN 100,000 UNITS/GM TOPICAL PWD 15GM TOP SCH ×2 (08:37→20:34)
[2023-02-08] MEDS: MIRALAX *UNIT DOSE* 17GM PACKET PO SCH ×2 (08:37→20:33)
[2023-02-08] MEDS ORDERED: POTASSIUM CHLORIDE 10MEQ SR TABLET PO ONE ×2 (09:00→18:00)
[2023-02-08 12:45] LABS: LDH LACTATE DEHYDROGENASE 145 U/L (120-246)
[2023-02-08 15:09] LABS: PH BODY FLUID > 7.800 UNITS (NOT ESTABLISHED); SOURCE, BODY FLUID pH PLEURAL
[2023-02-08 15:16] LABS: APPEARANCE, BODY FLUID HAZY (CLEAR); PLEURAL FL COLOR PALE YELLOW (COLORLESS); SOURCE, BODY FLUID PLEURAL
[2023-02-08 15:23] LABS: SOURCE, BODY FLUID ALBUMIN PLEURAL
[2023-02-08 15:29] LABS: SOURCE, BODY FLUID GLUCOSE PLEURAL; SOURCE, BODY FLUID TRIG PLEURAL; TRIGLYCERIDE, BODY FLUID 19 MG/DL (NOT ESTABLISHED)
[2023-02-08 15:30] LABS: LDH, BODY FLUID 56 U/L (NOT ESTABLISHED); SOURCE, BODY FLUID LDH PLEURAL
[2023-02-08 15:31] LABS: CHOLESTEROL, BODY FLUID < 25 MG/DL (NOT ESTABLISHED); SOURCE, BODY FLUID CHOL PLEURAL; SOURCE, BODY FLUID TOT PROTEIN PLEURAL; TOTAL PROTEIN, BODY FLUID < 2.0 G/DL (NOT ESTABLISHED)
[2023-02-08] MEDS: ATORVASTATIN 10 MG TAB PO SCH (20:33)
[2023-02-08] MEDS: ARIPiprazole 2 MG TAB PO SCH (20:33)
[2023-02-08] MEDS: SERTRALINE 100 MG TAB PO SCH (20:34)
[2023-02-09] VITALS (15 sets, daily range): BP systolic 92–106; BP diastolic 48–66; O2SAT 89–96
[2023-02-09] MEDS: IPRATROPIUM 0.5MG/ALBUTEROL 2.5MG INH SOL UD 3ML (DUONEB) NEB SCH ×4 (01:13→19:12)
[2023-02-09] MEDS ORDERED: ACETAMINOPHEN TAB 650MG DOSE (2X325MG) PO ONE (07:20)
[2023-02-09 08:11] LABS: BASO % 0.2 % (0.0-1.0); EOS # 0.1 10^3/uL (0.0-0.5); EOS % 1.3 % (0.0-3.0); HEMATOCRIT 36.3 % (36.0-47.0); HEMOGLOBIN 10.9 g/dl (12.0-15.5); LYMPH # 0.9 10^3/uL (1.5-5.0); MEAN CORPUSCULAR HEMOGLOBIN 29.2 pg (27.0-33.0); MEAN CORPUSCULAR VOLUME 97.3 fl (80.0-96.0); MONO # 0.7 10^3/uL (0.0-0.8); NEUTROPHILS # 4.6 10^3/uL (1.5-8.5); NEUTROPHILS % 72.7 % (36.0-66.0); PLATELET COUNT, AUTOMATED 128 10^3/uL (150-450); RED BLOOD COUNT 3.73 10^6/uL (4.00-5.40); WHITE BLOOD COUNT 6.3 10^3/uL (4.0-10.0)
[2023-02-09] MEDS: MIRALAX *UNIT DOSE* 17GM PACKET PO SCH ×2 (08:16→20:37)
[2023-02-09] MEDS: MAGNESIUM OXIDE 400MG TAB (MAG-OX) PO SCH ×2 (08:16→20:41)
[2023-02-09] MEDS: MIDODRINE 5 MG TAB PO SCH ×3 (08:16→15:17)
[2023-02-09] MEDS: ASPIRIN 81MG ENTERIC TABLET PO SCH (08:16)
[2023-02-09] MEDS: PANTOPRAZOLE 40MG TAB (PROTONIX) PO SCH (08:16)
[2023-02-09] MEDS: CYANOCOBALAMIN 500 MCG TAB PO SCH (08:17)
[2023-02-09] MEDS: ENOXAPARIN 40MG/0.4ML SYRINGE (J1650 PER 10MG) SC SCH (08:17)
[2023-02-09] MEDS: VITAMIN D 1,000 INTERNATIONAL UNITS TABLET PO SCH (08:17)
[2023-02-09] MEDS: NYSTATIN 100,000 UNITS/GM TOPICAL PWD 15GM TOP SCH ×2 (08:18→20:42)
[2023-02-09 08:45] LABS: BLOOD UREA NITROGEN 23 MG/DL (9-23); CALCIUM LEVEL 8.6 MG/DL (8.3-10.6); CARBON DIOXIDE LEVEL 34 MMOL/L (20-31); CHLORIDE LEVEL 97 MMOL/L (98-107); CREATININE FOR GFR 0.74 MG/DL (0.55-1.30); GLOMERULAR FILTRATION RATE > 60.0 (>32); GLUCOSE, FASTING 103 MG/DL (74-106); POTASSIUM SERUM 4.3 MMOL/L (3.5-5.1); SODIUM LEVEL 136 MMOL/L (136-145)
[2023-02-09] MEDS ORDERED: SPIRONOLACTONE 12.5MG PER 1/2 TABLET PEG SCH (09:15)
[2023-02-09] MEDS: FUROSEMIDE 80 MG TAB PO SCH (09:25)
[2023-02-09] MEDS: SPIRONOLACTONE 50 MG TAB PO SCH (09:25)
[2023-02-09 09:34] LABS: LDH LACTATE DEHYDROGENASE 265 U/L (120-246)
[2023-02-09 17:18] LABS: PH BODY FLUID 7.732 UNITS (NOT ESTABLISHED); SOURCE, BODY FLUID pH PLEURAL
[2023-02-09 17:26] LABS: APPEARANCE, BODY FLUID CLEAR (CLEAR); PLEURAL FL COLOR PALE YELLOW (COLORLESS); SOURCE, BODY FLUID PLEURAL
[2023-02-09 17:39] LABS: SOURCE, BODY FLUID ALBUMIN PLEURAL
[2023-02-09 17:44] LABS: SOURCE, BODY FLUID GLUCOSE PLEURAL; SOURCE, BODY FLUID TRIG PLEURAL; TRIGLYCERIDE, BODY FLUID 20 MG/DL (NOT ESTABLISHED)
[2023-02-09 17:45] LABS: LDH, BODY FLUID 51 U/L (NOT ESTABLISHED); SOURCE, BODY FLUID LDH PLEURAL
[2023-02-09 17:46] LABS: AMYLASE, BODY FLUID < 20 U/L (NOT ESTABLISHED); CHOLESTEROL, BODY FLUID < 25 MG/DL (NOT ESTABLISHED); SOURCE, BODY FLUID AMYLASE PLEURAL; SOURCE, BODY FLUID CHOL PLEURAL; SOURCE, BODY FLUID TOT PROTEIN PLEURAL; TOTAL PROTEIN, BODY FLUID < 2.0 G/DL (NOT ESTABLISHED)
[2023-02-09] MEDS: SERTRALINE 100 MG TAB PO SCH (20:41)
[2023-02-09] MEDS: ATORVASTATIN 10 MG TAB PO SCH (20:41)
[2023-02-09] MEDS: ARIPiprazole 2 MG TAB PO SCH (20:41)
[2023-02-09] MEDS: ACETAMINOPHEN TAB 650MG DOSE (2X325MG) PO PRN (20:42)
[2023-02-10] VITALS (10 sets, daily range): BP systolic 102–124; BP diastolic 58–60; O2SAT 93–96
[2023-02-10] MEDS: IPRATROPIUM 0.5MG/ALBUTEROL 2.5MG INH SOL UD 3ML (DUONEB) NEB SCH ×4 (01:07→19:46)
[2023-02-10 06:27] LABS: BASO % 0.3 % (0.0-1.0); EOS # 0.1 10^3/uL (0.0-0.5); EOS % 0.9 % (0.0-3.0); HEMATOCRIT 33.8 % (36.0-47.0); HEMOGLOBIN 10.1 g/dl (12.0-15.5); LYMPH # 1.1 10^3/uL (1.5-5.0); LYMPH % 16.3 % (24.0-44.0); MEAN CORPUSCULAR HEMOGLOBIN 28.6 pg (27.0-33.0); MEAN CORPUSCULAR HGB CONC 29.9 g/dl (32.0-36.5); MEAN CORPUSCULAR VOLUME 95.8 fl (80.0-96.0); MONO # 0.6 10^3/uL (0.0-0.8); MONO % 9.6 % (2.0-8.0); NEUTROPHILS # 4.8 10^3/uL (1.5-8.5); NEUTROPHILS % 72.3 % (36.0-66.0); PLATELET COUNT, AUTOMATED 128 10^3/uL (150-450); RED BLOOD COUNT 3.53 10^6/uL (4.00-5.40); WHITE BLOOD COUNT 6.6 10^3/uL (4.0-10.0)
[2023-02-10 06:52] LABS: ALBUMIN 2.7 G/DL (3.2-5.2); ALKALINE PHOSPHATASE 74 U/L (46-116); ALT/SGPT 24 U/L (7.0-40); AST/SGOT 19 U/L (<34); BILIRUBIN,DIRECT 0.3 MG/DL (<0.4); BILIRUBIN,TOTAL 0.6 MG/DL (0.3-1.2); BLOOD UREA NITROGEN 19 MG/DL (9-23); CALCIUM LEVEL 8.3 MG/DL (8.3-10.6); CARBON DIOXIDE LEVEL 35 MMOL/L (20-31); CHLORIDE LEVEL 96 MMOL/L (98-107); GLOMERULAR FILTRATION RATE > 60.0 (>32); GLUCOSE, FASTING 111 MG/DL (74-106); MAGNESIUM LEVEL 2.1 MG/DL (1.8-2.4); POTASSIUM SERUM 3.6 MMOL/L (3.5-5.1); SODIUM LEVEL 136 MMOL/L (136-145)
[2023-02-10] MEDS: SPIRONOLACTONE 50 MG TAB PO SCH (08:32)
[2023-02-10] MEDS: PANTOPRAZOLE 40MG TAB (PROTONIX) PO SCH (08:32)
[2023-02-10] MEDS: CYANOCOBALAMIN 500 MCG TAB PO SCH (08:33)
[2023-02-10] MEDS: MIDODRINE 5 MG TAB PO SCH ×3 (08:33→16:52)
[2023-02-10] MEDS: ASPIRIN 81MG ENTERIC TABLET PO SCH (08:33)
[2023-02-10] MEDS: MAGNESIUM OXIDE 400MG TAB (MAG-OX) PO SCH ×2 (08:33→20:04)
[2023-02-10] MEDS: FUROSEMIDE 80 MG TAB PO SCH (08:33)
[2023-02-10] MEDS: VITAMIN D 1,000 INTERNATIONAL UNITS TABLET PO SCH (08:33)
[2023-02-10] MEDS: MIRALAX *UNIT DOSE* 17GM PACKET PO SCH ×2 (08:34→19:59)
[2023-02-10] MEDS: ENOXAPARIN 40MG/0.4ML SYRINGE (J1650 PER 10MG) SC SCH (08:34)
[2023-02-10] MEDS: NYSTATIN 100,000 UNITS/GM TOPICAL PWD 15GM TOP SCH ×2 (08:34→20:05)
[2023-02-10] MEDS: ARIPiprazole 2 MG TAB PO SCH (20:04)
[2023-02-10] MEDS: SERTRALINE 100 MG TAB PO SCH (20:04)
[2023-02-10] MEDS: ATORVASTATIN 10 MG TAB PO SCH (20:04)
[2023-02-11] MEDS: IPRATROPIUM 0.5MG/ALBUTEROL 2.5MG INH SOL UD 3ML (DUONEB) NEB SCH ×5 (01:04→19:17)
[2023-02-11 06:53] LABS: BASO % 0.3 % (0.0-1.0); EOS # 0.1 10^3/uL (0.0-0.5); EOS % 1.1 % (0.0-3.0); HEMOGLOBIN 10.4 g/dl (12.0-15.5); LYMPH # 0.8 10^3/uL (1.5-5.0); LYMPH % 11.8 % (24.0-44.0); MEAN CORPUSCULAR HEMOGLOBIN 28.8 pg (27.0-33.0); MEAN CORPUSCULAR HGB CONC 30.6 g/dl (32.0-36.5); MEAN CORPUSCULAR VOLUME 94.2 fl (80.0-96.0); MONO # 0.7 10^3/uL (0.0-0.8); MONO % 9.9 % (2.0-8.0); NEUTROPHILS # 5.5 10^3/uL (1.5-8.5); NEUTROPHILS % 76.3 % (36.0-66.0); PLATELET COUNT, AUTOMATED 128 10^3/uL (150-450); RED BLOOD COUNT 3.61 10^6/uL (4.00-5.40); WHITE BLOOD COUNT 7.1 10^3/uL (4.0-10.0)
[2023-02-11 07:22] LABS: ALBUMIN 2.7 G/DL (3.2-5.2); ALKALINE PHOSPHATASE 81 U/L (46-116); ALT/SGPT 23 U/L (7.0-40); AST/SGOT 18 U/L (<34); BILIRUBIN,DIRECT 0.3 MG/DL (<0.4); BILIRUBIN,TOTAL 0.7 MG/DL (0.3-1.2); BLOOD UREA NITROGEN 19 MG/DL (9-23); CALCIUM LEVEL 8.3 MG/DL (8.3-10.6); CARBON DIOXIDE LEVEL 37 MMOL/L (20-31); CHLORIDE LEVEL 98 MMOL/L (98-107); CREATININE FOR GFR 0.79 MG/DL (0.55-1.30); GLOMERULAR FILTRATION RATE > 60.0 (>32); GLUCOSE, FASTING 100 MG/DL (74-106); POTASSIUM SERUM 3.8 MMOL/L (3.5-5.1); SODIUM LEVEL 138 MMOL/L (136-145); TOTAL PROTEIN 5.6 G/DL (5.7-8.2)
[2023-02-11 07:57] VITALS: BP 102/59
[2023-02-11] MEDS: MIRALAX *UNIT DOSE* 17GM PACKET PO SCH ×2 (08:30→20:15)
[2023-02-11] MEDS: MIDODRINE 5 MG TAB PO SCH ×2 (08:31→16:21)
[2023-02-11] MEDS: PANTOPRAZOLE 40MG TAB (PROTONIX) PO SCH (08:31)
[2023-02-11] MEDS: ASPIRIN 81MG ENTERIC TABLET PO SCH (08:31)
[2023-02-11] MEDS: MAGNESIUM OXIDE 400MG TAB (MAG-OX) PO SCH ×2 (08:31→20:14)
[2023-02-11] MEDS: CYANOCOBALAMIN 500 MCG TAB PO SCH (08:31)
[2023-02-11] MEDS: SPIRONOLACTONE 50 MG TAB PO SCH (08:31)
[2023-02-11] MEDS: VITAMIN D 1,000 INTERNATIONAL UNITS TABLET PO SCH (08:31)
[2023-02-11] MEDS: ENOXAPARIN 40MG/0.4ML SYRINGE (J1650 PER 10MG) SC SCH (08:32)
[2023-02-11] MEDS: FUROSEMIDE 80 MG TAB PO SCH (08:32)
[2023-02-11] MEDS: NYSTATIN 100,000 UNITS/GM TOPICAL PWD 15GM TOP SCH ×2 (08:33→20:15)
[2023-02-11] MEDS ORDERED: MIDODRINE 2.5 MG TAB PO SCH (12:00)
[2023-02-11 15:45] VITALS: BP 96/66
[2023-02-11] MEDS: ATORVASTATIN 10 MG TAB PO SCH (20:14)
[2023-02-11] MEDS: SERTRALINE 100 MG TAB PO SCH (20:14)
[2023-02-11] MEDS: ARIPiprazole 2 MG TAB PO SCH (20:14)
[2023-02-12] MEDS: IPRATROPIUM 0.5MG/ALBUTEROL 2.5MG INH SOL UD 3ML (DUONEB) NEB SCH ×4 (02:57→20:15)
[2023-02-12 06:00] VITALS: BP 112/57
[2023-02-12 06:34] LABS: BASO % 0.3 % (0.0-1.0); EOS # 0.1 10^3/uL (0.0-0.5); EOS % 1.2 % (0.0-3.0); HEMATOCRIT 35.1 % (36.0-47.0); HEMOGLOBIN 10.6 g/dl (12.0-15.5); LYMPH # 0.9 10^3/uL (1.5-5.0); LYMPH % 12.4 % (24.0-44.0); MEAN CORPUSCULAR HEMOGLOBIN 28.4 pg (27.0-33.0); MEAN CORPUSCULAR HGB CONC 30.2 g/dl (32.0-36.5); MEAN CORPUSCULAR VOLUME 94.1 fl (80.0-96.0); MONO # 0.6 10^3/uL (0.0-0.8); MONO % 8.7 % (2.0-8.0); NEUTROPHILS # 5.6 10^3/uL (1.5-8.5); NEUTROPHILS % 76.8 % (36.0-66.0); PLATELET COUNT, AUTOMATED 142 10^3/uL (150-450); RED BLOOD COUNT 3.73 10^6/uL (4.00-5.40); WHITE BLOOD COUNT 7.2 10^3/uL (4.0-10.0)
[2023-02-12 07:04] LABS: ALBUMIN 2.7 G/DL (3.2-5.2); ALKALINE PHOSPHATASE 79 U/L (46-116); ALT/SGPT 20 U/L (7.0-40); AST/SGOT 17 U/L (<34); BILIRUBIN,DIRECT 0.4 MG/DL (<0.4); BILIRUBIN,TOTAL 0.8 MG/DL (0.3-1.2); BLOOD UREA NITROGEN 18 MG/DL (9-23); CALCIUM LEVEL 8.1 MG/DL (8.3-10.6); CARBON DIOXIDE LEVEL 35 MMOL/L (20-31); CHLORIDE LEVEL 97 MMOL/L (98-107); CREATININE FOR GFR 0.79 MG/DL (0.55-1.30); GLOMERULAR FILTRATION RATE > 60.0 (>32); GLUCOSE, FASTING 96 MG/DL (74-106); POTASSIUM SERUM 3.9 MMOL/L (3.5-5.1); SODIUM LEVEL 137 MMOL/L (136-145); TOTAL PROTEIN 5.8 G/DL (5.7-8.2)
[2023-02-12] MEDS: ONDANSETRON 4MG 2ML VIAL IV PRN (08:11)
[2023-02-12] MEDS: MIRALAX *UNIT DOSE* 17GM PACKET PO SCH ×2 (09:00→20:31)
[2023-02-12] MEDS: ENOXAPARIN 40MG/0.4ML SYRINGE (J1650 PER 10MG) SC SCH (10:16)
[2023-02-12] MEDS: VITAMIN D 1,000 INTERNATIONAL UNITS TABLET PO SCH (10:17)
[2023-02-12] MEDS: ASPIRIN 81MG ENTERIC TABLET PO SCH (10:17)
[2023-02-12] MEDS: PANTOPRAZOLE 40MG TAB (PROTONIX) PO SCH (10:17)
[2023-02-12] MEDS: MAGNESIUM OXIDE 400MG TAB (MAG-OX) PO SCH ×2 (10:17→20:30)
[2023-02-12] MEDS: CYANOCOBALAMIN 500 MCG TAB PO SCH (10:18)
[2023-02-12] MEDS: MIDODRINE 5 MG TAB PO SCH ×3 (10:18→17:30)
[2023-02-12] MEDS: FUROSEMIDE 80 MG TAB PO SCH (10:18)
[2023-02-12] MEDS: SPIRONOLACTONE 50 MG TAB PO SCH (10:18)
[2023-02-12] MEDS: NYSTATIN 100,000 UNITS/GM TOPICAL PWD 15GM TOP SCH ×2 (10:20→20:30)
[2023-02-12] MEDS: ARIPiprazole 2 MG TAB PO SCH (20:30)
[2023-02-12] MEDS: ATORVASTATIN 10 MG TAB PO SCH (20:30)
[2023-02-12] MEDS: SERTRALINE 100 MG TAB PO SCH (20:30)
[2023-02-13] MEDS: IPRATROPIUM 0.5MG/ALBUTEROL 2.5MG INH SOL UD 3ML (DUONEB) NEB SCH ×4 (01:11→20:00)
[2023-02-13 05:22] VITALS: BP 109/70
[2023-02-13 05:51] LABS: BASO % 0.4 % (0.0-1.0); EOS # 0.1 10^3/uL (0.0-0.5); EOS % 1.3 % (0.0-3.0); HEMATOCRIT 35.4 % (36.0-47.0); HEMOGLOBIN 10.8 g/dl (12.0-15.5); LYMPH % 14.1 % (24.0-44.0); MEAN CORPUSCULAR HGB CONC 30.5 g/dl (32.0-36.5); MEAN CORPUSCULAR VOLUME 94.9 fl (80.0-96.0); MONO # 0.6 10^3/uL (0.0-0.8); MONO % 8.7 % (2.0-8.0); NEUTROPHILS # 5.3 10^3/uL (1.5-8.5); NEUTROPHILS % 74.9 % (36.0-66.0); PLATELET COUNT, AUTOMATED 127 10^3/uL (150-450); RED BLOOD COUNT 3.73 10^6/uL (4.00-5.40)
[2023-02-13 06:18] LABS: ALBUMIN 2.7 G/DL (3.2-5.2); ALKALINE PHOSPHATASE 79 U/L (46-116); ALT/SGPT 19 U/L (7.0-40); AST/SGOT 18 U/L (<34); BILIRUBIN,DIRECT 0.3 MG/DL (<0.4); BILIRUBIN,TOTAL 0.6 MG/DL (0.3-1.2); BLOOD UREA NITROGEN 23 MG/DL (9-23); CALCIUM LEVEL 8.3 MG/DL (8.3-10.6); CARBON DIOXIDE LEVEL 34 MMOL/L (20-31); CHLORIDE LEVEL 97 MMOL/L (98-107); GLOMERULAR FILTRATION RATE > 60.0 (>32); GLUCOSE, FASTING 112 MG/DL (74-106); MAGNESIUM LEVEL 2.1 MG/DL (1.8-2.4); POTASSIUM SERUM 4.2 MMOL/L (3.5-5.1); SODIUM LEVEL 136 MMOL/L (136-145)
[2023-02-13 09:30] VITALS: BP 114/74
[2023-02-13] MEDS: ENOXAPARIN 40MG/0.4ML SYRINGE (J1650 PER 10MG) SC SCH (09:30)
[2023-02-13] MEDS: MIRALAX *UNIT DOSE* 17GM PACKET PO SCH ×2 (09:30→21:25)
[2023-02-13] MEDS: MIDODRINE 5 MG TAB PO SCH ×3 (09:31→16:31)
[2023-02-13] MEDS: FUROSEMIDE 80 MG TAB PO SCH (09:31)
[2023-02-13] MEDS: SPIRONOLACTONE 50 MG TAB PO SCH (09:31)
[2023-02-13] MEDS: VITAMIN D 1,000 INTERNATIONAL UNITS TABLET PO SCH (09:31)
[2023-02-13] MEDS: MAGNESIUM OXIDE 400MG TAB (MAG-OX) PO SCH ×2 (09:31→21:25)
[2023-02-13] MEDS: PANTOPRAZOLE 40MG TAB (PROTONIX) PO SCH (09:31)
[2023-02-13] MEDS: CYANOCOBALAMIN 500 MCG TAB PO SCH (09:31)
[2023-02-13] MEDS: ASPIRIN 81MG ENTERIC TABLET PO SCH (09:31)
[2023-02-13] MEDS: NYSTATIN 100,000 UNITS/GM TOPICAL PWD 15GM TOP SCH ×2 (09:31→21:25)
[2023-02-13 16:31] VITALS: BP 113/72
[2023-02-13 19:53] VITALS: BP 118/71
[2023-02-13] MEDS: ATORVASTATIN 10 MG TAB PO SCH (21:25)
[2023-02-13] MEDS: SERTRALINE 100 MG TAB PO SCH (21:25)
[2023-02-13] MEDS: ARIPiprazole 2 MG TAB PO SCH (21:25)
[2023-02-14] VITALS (9 sets, daily range): BP systolic 96–114; BP diastolic 55–74
[2023-02-14] MEDS: IPRATROPIUM 0.5MG/ALBUTEROL 2.5MG INH SOL UD 3ML (DUONEB) NEB SCH ×4 (01:52→19:08)
[2023-02-14 06:45] LABS: BASO % 0.4 % (0.0-1.0); EOS # 0.1 10^3/uL (0.0-0.5); HEMATOCRIT 36.8 % (36.0-47.0); HEMOGLOBIN 11.1 g/dl (12.0-15.5); LYMPH % 12.3 % (24.0-44.0); MEAN CORPUSCULAR HEMOGLOBIN 28.8 pg (27.0-33.0); MEAN CORPUSCULAR HGB CONC 30.2 g/dl (32.0-36.5); MEAN CORPUSCULAR VOLUME 95.3 fl (80.0-96.0); MONO # 0.6 10^3/uL (0.0-0.8); MONO % 7.6 % (2.0-8.0); NEUTROPHILS # 6.3 10^3/uL (1.5-8.5); NEUTROPHILS % 78.1 % (36.0-66.0); PLATELET COUNT, AUTOMATED 147 10^3/uL (150-450); RED BLOOD COUNT 3.86 10^6/uL (4.00-5.40)
[2023-02-14 07:17] LABS: ALBUMIN 2.8 G/DL (3.2-5.2); ALKALINE PHOSPHATASE 78 U/L (46-116); ALT/SGPT 16 U/L (7.0-40); AST/SGOT 19 U/L (<34); BILIRUBIN,DIRECT 0.3 MG/DL (<0.4); BILIRUBIN,TOTAL 0.5 MG/DL (0.3-1.2); BLOOD UREA NITROGEN 23 MG/DL (9-23); CALCIUM LEVEL 8.5 MG/DL (8.3-10.6); CARBON DIOXIDE LEVEL 34 MMOL/L (20-31); CHLORIDE LEVEL 94 MMOL/L (98-107); CREATININE FOR GFR 0.88 MG/DL (0.55-1.30); GLOMERULAR FILTRATION RATE > 60.0 (>32); GLUCOSE, FASTING 111 MG/DL (74-106); MAGNESIUM LEVEL 2.1 MG/DL (1.8-2.4); POTASSIUM SERUM 4.3 MMOL/L (3.5-5.1); SODIUM LEVEL 134 MMOL/L (136-145); TOTAL PROTEIN 6.4 G/DL (5.7-8.2)
[2023-02-14] MEDS: MIDODRINE 5 MG TAB PO SCH ×3 (08:00→16:58)
[2023-02-14] MEDS: FUROSEMIDE 80 MG TAB PO SCH (08:20)
[2023-02-14] MEDS: SPIRONOLACTONE 50 MG TAB PO SCH (08:20)
[2023-02-14] MEDS: ASPIRIN 81MG ENTERIC TABLET PO SCH (08:21)
[2023-02-14] MEDS: VITAMIN D 1,000 INTERNATIONAL UNITS TABLET PO SCH (08:21)
[2023-02-14] MEDS: CYANOCOBALAMIN 500 MCG TAB PO SCH (08:21)
[2023-02-14] MEDS: ENOXAPARIN 40MG/0.4ML SYRINGE (J1650 PER 10MG) SC SCH (08:22)
[2023-02-14] MEDS: PANTOPRAZOLE 40MG TAB (PROTONIX) PO SCH (08:22)
[2023-02-14] MEDS: MAGNESIUM OXIDE 400MG TAB (MAG-OX) PO SCH ×2 (08:22→20:18)
[2023-02-14] MEDS: MIRALAX *UNIT DOSE* 17GM PACKET PO SCH ×2 (08:22→20:16)
[2023-02-14] MEDS: NYSTATIN 100,000 UNITS/GM TOPICAL PWD 15GM TOP SCH ×2 (08:22→20:17)
[2023-02-14] MEDS ORDERED: MIDO5TA PO (09:29)
[2023-02-14] MEDS ORDERED: PANT40TA29 PO (09:29)
[2023-02-14] MEDS ORDERED: MAGN400T2 PO (09:29)
[2023-02-14] MEDS ORDERED: FURO80TA2 PO (09:29)
[2023-02-14] MEDS ORDERED: ALDA50TA2 PO (09:29)
[2023-02-14] MEDS: FUROSEMIDE injection 250 MG in D5W 225 ML IV SCH (13:30)
[2023-02-14] MEDS ORDERED: FUROSEMIDE 80 MG TAB PO ONE (14:00)
[2023-02-14] MEDS: ARIPiprazole 2 MG TAB PO SCH (20:16)
[2023-02-14] MEDS: SERTRALINE 100 MG TAB PO SCH (20:16)
[2023-02-14] MEDS: ATORVASTATIN 10 MG TAB PO SCH (20:16)
[2023-02-14] MEDS: ACETAMINOPHEN TAB 650MG DOSE (2X325MG) PO PRN (23:37)
[2023-02-15] VITALS (20 sets, daily range): BP systolic 88–125; BP diastolic 51–80
[2023-02-15] MEDS: IPRATROPIUM 0.5MG/ALBUTEROL 2.5MG INH SOL UD 3ML (DUONEB) NEB SCH ×4 (01:13→19:28)
[2023-02-15 05:22] LABS: BASO % 0.2 % (0.0-1.0); EOS # 0.1 10^3/uL (0.0-0.5); EOS % 0.6 % (0.0-3.0); HEMATOCRIT 34.2 % (36.0-47.0); HEMOGLOBIN 10.5 g/dl (12.0-15.5); LYMPH # 0.8 10^3/uL (1.5-5.0); LYMPH % 9.8 % (24.0-44.0); MEAN CORPUSCULAR HEMOGLOBIN 29.2 pg (27.0-33.0); MEAN CORPUSCULAR HGB CONC 30.7 g/dl (32.0-36.5); MEAN CORPUSCULAR VOLUME 95.3 fl (80.0-96.0); MONO # 0.6 10^3/uL (0.0-0.8); MONO % 7.3 % (2.0-8.0); NEUTROPHILS # 6.7 10^3/uL (1.5-8.5); NEUTROPHILS % 81.7 % (36.0-66.0); PLATELET COUNT, AUTOMATED 149 10^3/uL (150-450); RED BLOOD COUNT 3.59 10^6/uL (4.00-5.40); WHITE BLOOD COUNT 8.2 10^3/uL (4.0-10.0)
[2023-02-15 05:57] LABS: ALBUMIN 2.7 G/DL (3.2-5.2); ALKALINE PHOSPHATASE 78 U/L (46-116); ALT/SGPT 16 U/L (7.0-40); AST/SGOT 25 U/L (<34); BILIRUBIN,DIRECT 0.3 MG/DL (<0.4); BILIRUBIN,TOTAL 0.6 MG/DL (0.3-1.2); BLOOD UREA NITROGEN 22 MG/DL (9-23); CALCIUM LEVEL 7.7 MG/DL (8.3-10.6); CARBON DIOXIDE LEVEL 37 MMOL/L (20-31); CHLORIDE LEVEL 95 MMOL/L (98-107); CREATININE FOR GFR 0.84 MG/DL (0.55-1.30); GLOMERULAR FILTRATION RATE > 60.0 (>32); GLUCOSE, FASTING 109 MG/DL (74-106); MAGNESIUM LEVEL 1.9 MG/DL (1.8-2.4); POTASSIUM SERUM 3.8 MMOL/L (3.5-5.1); SODIUM LEVEL 135 MMOL/L (136-145)
[2023-02-15] MEDS: acetaZOLAMIDE 250MG TAB PO SCH ×2 (09:00→20:09)
[2023-02-15] MEDS: NYSTATIN 100,000 UNITS/GM TOPICAL PWD 15GM TOP SCH ×2 (09:00→20:09)
[2023-02-15] MEDS: PANTOPRAZOLE 40MG TAB (PROTONIX) PO SCH (09:18)
[2023-02-15] MEDS: MIDODRINE 5 MG TAB PO SCH ×3 (09:18→16:00)
[2023-02-15] MEDS: CYANOCOBALAMIN 500 MCG TAB PO SCH (09:18)
[2023-02-15] MEDS: SPIRONOLACTONE 50 MG TAB PO SCH (09:18)
[2023-02-15] MEDS: VITAMIN D 1,000 INTERNATIONAL UNITS TABLET PO SCH (09:18)
[2023-02-15] MEDS: MAGNESIUM OXIDE 400MG TAB (MAG-OX) PO SCH ×2 (09:18→20:09)
[2023-02-15] MEDS: MIRALAX *UNIT DOSE* 17GM PACKET PO SCH ×2 (09:19→20:09)
[2023-02-15] MEDS: ASPIRIN 81MG ENTERIC TABLET PO SCH (09:19)
[2023-02-15] MEDS: ENOXAPARIN 40MG/0.4ML SYRINGE (J1650 PER 10MG) SC SCH (09:19)
[2023-02-15] MEDS ORDERED: SENOKOT S TAB PO PRN (10:30)
[2023-02-15] MEDS: FUROSEMIDE injection 250 MG in D5W 225 ML IV SCH (13:00)
[2023-02-15] MEDS: ARIPiprazole 2 MG TAB PO SCH (20:09)
[2023-02-15] MEDS: SERTRALINE 100 MG TAB PO SCH (20:09)
[2023-02-15] MEDS: ATORVASTATIN 10 MG TAB PO SCH (20:09)
[2023-02-16] VITALS (16 sets, daily range): BP systolic 69–137; BP diastolic 46–75
[2023-02-16] MEDS: IPRATROPIUM 0.5MG/ALBUTEROL 2.5MG INH SOL UD 3ML (DUONEB) NEB SCH ×4 (01:20→19:04)
[2023-02-16 04:46] LABS: BASO % 0.3 % (0.0-1.0); EOS % 0.4 % (0.0-3.0); HEMATOCRIT 34.9 % (36.0-47.0); HEMOGLOBIN 10.5 g/dl (12.0-15.5); LYMPH # 0.7 10^3/uL (1.5-5.0); LYMPH % 8.6 % (24.0-44.0); MEAN CORPUSCULAR HEMOGLOBIN 28.6 pg (27.0-33.0); MEAN CORPUSCULAR HGB CONC 30.1 g/dl (32.0-36.5); MEAN CORPUSCULAR VOLUME 95.1 fl (80.0-96.0); MONO # 0.5 10^3/uL (0.0-0.8); MONO % 6.8 % (2.0-8.0); NEUTROPHILS # 6.5 10^3/uL (1.5-8.5); NEUTROPHILS % 83.4 % (36.0-66.0); PLATELET COUNT, AUTOMATED 155 10^3/uL (150-450); RED BLOOD COUNT 3.67 10^6/uL (4.00-5.40); WHITE BLOOD COUNT 7.8 10^3/uL (4.0-10.0)
[2023-02-16 05:13] LABS: ALBUMIN 2.7 G/DL (3.2-5.2); ALKALINE PHOSPHATASE 79 U/L (46-116); ALT/SGPT 15 U/L (7.0-40); AST/SGOT 22 U/L (<34); BILIRUBIN,DIRECT 0.3 MG/DL (<0.4); BILIRUBIN,TOTAL 0.6 MG/DL (0.3-1.2); BLOOD UREA NITROGEN 19 MG/DL (9-23); CALCIUM LEVEL 7.8 MG/DL (8.3-10.6); CARBON DIOXIDE LEVEL 38 MMOL/L (20-31); CHLORIDE LEVEL 93 MMOL/L (98-107); CREATININE FOR GFR 0.83 MG/DL (0.55-1.30); GLOMERULAR FILTRATION RATE > 60.0 (>32); GLUCOSE, FASTING 106 MG/DL (74-106); MAGNESIUM LEVEL 1.9 MG/DL (1.8-2.4); POTASSIUM SERUM 3.7 MMOL/L (3.5-5.1); SODIUM LEVEL 135 MMOL/L (136-145); TOTAL PROTEIN 6.1 G/DL (5.7-8.2)
[2023-02-16] MEDS: PANTOPRAZOLE 40MG TAB (PROTONIX) PO SCH (08:54)
[2023-02-16] MEDS: NYSTATIN 100,000 UNITS/GM TOPICAL PWD 15GM TOP SCH ×2 (08:54→21:27)
[2023-02-16] MEDS: MIRALAX *UNIT DOSE* 17GM PACKET PO SCH ×2 (08:55→21:26)
[2023-02-16] MEDS: acetaZOLAMIDE 250MG TAB PO SCH ×2 (08:55→21:27)
[2023-02-16] MEDS: MAGNESIUM OXIDE 400MG TAB (MAG-OX) PO SCH ×2 (08:55→21:27)
[2023-02-16] MEDS: VITAMIN D 1,000 INTERNATIONAL UNITS TABLET PO SCH (08:55)
[2023-02-16] MEDS: MIDODRINE 5 MG TAB PO SCH ×3 (08:55→15:39)
[2023-02-16] MEDS: SPIRONOLACTONE 50 MG TAB PO SCH (08:55)
[2023-02-16] MEDS: CYANOCOBALAMIN 500 MCG TAB PO SCH (08:55)
[2023-02-16] MEDS: ASPIRIN 81MG ENTERIC TABLET PO SCH (08:56)
[2023-02-16] MEDS: ENOXAPARIN 40MG/0.4ML SYRINGE (J1650 PER 10MG) SC SCH (08:56)
[2023-02-16] MEDS: FUROSEMIDE injection 250 MG in D5W 225 ML IV SCH (17:35)
[2023-02-16] MEDS ORDERED: APIXABAN 5 MG TAB (ELIQUIS) PO SCH (21:00)
[2023-02-16] MEDS: ARIPiprazole 2 MG TAB PO SCH (21:27)
[2023-02-16] MEDS: SERTRALINE 100 MG TAB PO SCH (21:27)
[2023-02-16] MEDS: ATORVASTATIN 10 MG TAB PO SCH (21:27)
[2023-02-17] VITALS: BP 138/61
[2023-02-17] MEDS: IPRATROPIUM 0.5MG/ALBUTEROL 2.5MG INH SOL UD 3ML (DUONEB) NEB SCH ×4 (00:41→20:57)
[2023-02-17 04:00] VITALS: BP 119/57
[2023-02-17 04:51] LABS: HEMATOCRIT 35.4 % (36.0-47.0); HEMOGLOBIN 10.7 g/dl (12.0-15.5); MEAN CORPUSCULAR HEMOGLOBIN 29.2 pg (27.0-33.0); MEAN CORPUSCULAR HGB CONC 30.2 g/dl (32.0-36.5); MEAN CORPUSCULAR VOLUME 96.5 fl (80.0-96.0); PLATELET COUNT, AUTOMATED 141 10^3/uL (150-450); RED BLOOD COUNT 3.67 10^6/uL (4.00-5.40); WHITE BLOOD COUNT 7.7 10^3/uL (4.0-10.0)
[2023-02-17 05:31] LABS: ALBUMIN 2.9 G/DL (3.2-5.2); ALKALINE PHOSPHATASE 81 U/L (46-116); ALT/SGPT 12 U/L (7.0-40); AST/SGOT 17 U/L (<34); BILIRUBIN,TOTAL 0.6 MG/DL (0.3-1.2); BLOOD UREA NITROGEN 19 MG/DL (9-23); CALCIUM LEVEL 8.3 MG/DL (8.3-10.6); CARBON DIOXIDE LEVEL 38 MMOL/L (20-31); CHLORIDE LEVEL 92 MMOL/L (98-107); CREATININE FOR GFR 0.89 MG/DL (0.55-1.30); GLOMERULAR FILTRATION RATE > 60.0 (>32); GLUCOSE, FASTING 118 MG/DL (74-106); MAGNESIUM LEVEL 2.2 MG/DL (1.8-2.4); POTASSIUM SERUM 3.3 MMOL/L (3.5-5.1); SODIUM LEVEL 136 MMOL/L (136-145); TOTAL PROTEIN 6.6 G/DL (5.7-8.2)
[2023-02-17] MEDS ORDERED: POTASSIUM CHLORIDE 10MEQ SR TABLET PO ONE (05:40)
[2023-02-17 07:58] VITALS: BP 110/52
[2023-02-17] MEDS: MIDODRINE 5 MG TAB PO SCH (08:00)
[2023-02-17] MEDS ORDERED: POLYVINYL ALCOHOL OPHTH SOLN 15ML (LIQUITEARS) OU PRN (08:05)
[2023-02-17] MEDS ORDERED: POTASSIUM CHLORIDE 10MEQ SR TABLET PO SCH (09:00)
[2023-02-17] MEDS ORDERED: HYOSCYAMINE SULFATE 0.125 MG SUBL TABLET PO PRN (09:15)
[2023-02-17] MEDS ORDERED: LORazepam 2 MG/ML 1ML VIAL IV PRN (09:15)
[2023-02-17] MEDS ORDERED: BISACODYL 10MG SUPP PR PRN (09:15)
[2023-02-17] MEDS ORDERED: MORPHINE 10MG/0.5ML ORAL CONCENTRATE SOLUTION U/D SL PRN (09:15)
[2023-02-17] MEDS ORDERED: SCOPOLAMINE 1MG TRANSDERMAL PATCH TOP PRN (09:15)
[2023-02-17] MEDS ORDERED: ONDANSETRON 4MG ORAL DISINTEGRATING TAB PO PRN (09:15)
[2023-02-17] MEDS ORDERED: ACETAMINOPHEN 650MG SUPP PR PRN (09:15)
[2023-02-17] MEDS ORDERED: ATROPINE SULFATE 1% OPHTH SOLN 2ML BTL SL PRN (09:15)
[2023-02-17] MEDS ORDERED: FLEET ENEMA PR PRN (09:15)
[2023-02-17] MEDS ORDERED: ACETAMINOPHEN TAB 650MG DOSE (2X325MG) PO PRN (09:15)
[2023-02-17] MEDS ORDERED: LORazepam 1 MG TAB PO PRN (09:15)
[2023-02-17] MEDS: BUMETANIDE 1 MG TAB PO SCH ×2 (13:46→21:12)
[2023-02-18] MEDS: IPRATROPIUM 0.5MG/ALBUTEROL 2.5MG INH SOL UD 3ML (DUONEB) NEB SCH ×3 (01:19→20:00)
[2023-02-18] MEDS: BUMETANIDE 1 MG TAB PO SCH ×2 (10:06→21:00)
[2023-02-18] MEDS: ONDANSETRON 4MG 2ML VIAL IV PRN (10:12)
[2023-02-18] MEDS: MORPHINE 2 MG/ML 1ML VIAL IV PRN ×3 (10:12→19:59)
[2023-02-19] MEDS: IPRATROPIUM 0.5MG/ALBUTEROL 2.5MG INH SOL UD 3ML (DUONEB) NEB SCH ×4 (01:34→19:51)
[2023-02-19] MEDS: BUMETANIDE 1 MG TAB PO SCH ×2 (08:47→20:16)
[2023-02-19] MEDS: MORPHINE 2 MG/ML 1ML VIAL IV PRN (20:17)
[2023-02-20] MEDS: IPRATROPIUM 0.5MG/ALBUTEROL 2.5MG INH SOL UD 3ML (DUONEB) NEB SCH ×4 (02:33→19:47)
[2023-02-20] MEDS: BUMETANIDE 1 MG TAB PO SCH ×2 (11:41→21:11)
[2023-02-21] MEDS: IPRATROPIUM 0.5MG/ALBUTEROL 2.5MG INH SOL UD 3ML (DUONEB) NEB SCH ×2 (00:44→07:23)
[2023-02-21] MEDS ORDERED: BUME1TAB3 PO (08:20)
[2023-02-21] MEDS: BUMETANIDE 1 MG TAB PO SCH (10:06)
== END 2023-02-21 11:54 | DRG 291 ==
LOC: EDBD 16:05 → M ED 16:05 → M PCU 19:12 → M ED INP 19:12 → M PCU 20:35 → M MSPAV 02-11 10:20 → M ICU 02-14 11:06 → M MSPAV 02-18 12:35
PROVIDERS: ADMIT Internal Medicine; ATTEND Internal Medicine
PROC: B246ZZZ Ultrasonography of Right and Left Heart (ICD-10-PCS; 2023-02-01)
PROC: 0W9B3ZZ Drainage of Left Pleural Cavity, Percutaneous Approach (ICD-10-PCS; principal; 2023-02-08 12:30)
PROC: 0W993ZZ Drainage of Right Pleural Cavity, Percutaneous Approach (ICD-10-PCS; 2023-02-09)
DX: I11.0 Hypertensive heart disease with heart failure (principal); I50.23 Acute on chronic systolic (congestive) heart failure; J96.22 Acute and chronic respiratory failure with hypercapnia; J15.6 Pneumonia due to other Gram-negative bacteria; J90 Pleural effusion, not elsewhere classified; R18.8 Other ascites; G93.40 Encephalopathy, unspecified; E87.1 Hypo-osmolality and hyponatremia; E87.3 Alkalosis; E87.4 Mixed disorder of acid-base balance; J44.0 Chronic obstructive pulmonary disease with (acute) lower respiratory infection; E87.6 Hypokalemia; I70.1 Atherosclerosis of renal artery; I95.89 Other hypotension; E53.8 Deficiency of other specified B group vitamins; D64.9 Anemia, unspecified; I48.0 Paroxysmal atrial fibrillation; F41.9 Anxiety disorder, unspecified; F32.A Depression, unspecified; E83.42 Hypomagnesemia; E78.5 Hyperlipidemia, unspecified; K21.9 Gastro-esophageal reflux disease without esophagitis; M19.90 Unspecified osteoarthritis, unspecified site; I25.10 Atherosclerotic heart disease of native coronary artery without angina pectoris; R74.01 Elevation of levels of liver transaminase levels; R11.2 Nausea with vomiting, unspecified; I27.20 Pulmonary hypertension, unspecified; M54.9 Dorsalgia, unspecified; R16.0 Hepatomegaly, not elsewhere classified; R50.9 Fever, unspecified; G89.29 Other chronic pain; L89.302 Pressure ulcer of unspecified buttock, stage 2; Z90.49 Acquired absence of other specified parts of digestive tract; Z98.41 Cataract extraction status, right eye; Z98.42 Cataract extraction status, left eye; Z87.891 Personal history of nicotine dependence; Z79.82 Long term (current) use of aspirin; Z79.899 Other long term (current) drug therapy; Z88.2 Allergy status to sulfonamides; Z20.822 Contact with and (suspected) exposure to COVID-19; Z66 Do not resuscitate; Z87.440 Personal history of urinary (tract) infections

== ENCOUNTER → 2023-01-31 | Outpatient (REF) | payer MEDICARE ==
[~2023-01-31] MED LIST changes: +ACET-907 PO; +ALDA50TA2 PO; +ASPI-161 PO; +DOXY100T PO; +FURO20TA2 PO; +FURO80TA2 PO; +MAGN400T2 PO; +MIDO5TA PO; +NYST1POW9 TOP; +PANT40TA29 PO; +SPIR-10 PO; -SPIRONOLACTONE 25 MG TAB PO SCH; +VENTAER INH; +VITA100093 PO; +ZOLO100T PO
[2023-01-31 07:13] LABS: HEMATOCRIT 37.7 % (36.0-47.0); HEMOGLOBIN 11.5 g/dl (12.0-15.5); MEAN CORPUSCULAR HEMOGLOBIN 29.1 pg (27.0-33.0); MEAN CORPUSCULAR HGB CONC 30.5 g/dl (32.0-36.5); MEAN CORPUSCULAR VOLUME 95.4 fl (80.0-96.0); PLATELET COUNT, AUTOMATED 172 10^3/uL (150-450); RED BLOOD COUNT 3.95 10^6/uL (4.00-5.40); WHITE BLOOD COUNT 10.1 10^3/uL (4.0-10.0)
[2023-01-31 07:47] LABS: BLOOD UREA NITROGEN 40 MG/DL (9-23); CALCIUM LEVEL 8.5 MG/DL (8.3-10.6); CARBON DIOXIDE LEVEL 30 MMOL/L (20-31); CHLORIDE LEVEL 95 MMOL/L (98-107); CREATININE FOR GFR 0.87 MG/DL (0.55-1.30); GLOMERULAR FILTRATION RATE > 60.0 (>32); GLUCOSE, FASTING 140 MG/DL (74-106); POTASSIUM SERUM 4.9 MMOL/L (3.5-5.1); SODIUM LEVEL 132 MMOL/L (136-145)
== END ==
LOC: SKLAB2 08:00
PROVIDERS: ATTEND Internal Medicine
DX: I50.9 Heart failure, unspecified (principal); L03.90 Cellulitis, unspecified

== ENCOUNTER → 2023-02-02 | Outpatient (REF) | payer MEDICARE ==
[~2023-02-02] MED LIST changes: +ACET-907 PO; +ALDA50TA2 PO; +BUME1TAB3 PO; +FURO80TA2 PO; +MAGN400T2 PO; +MIDO5TA PO; +NYST1POW9 TOP; +PANT40TA29 PO
== END ==
LOC: SKLAB2 07:00
PROVIDERS: ATTEND Internal Medicine
DX: Z53.8 Procedure and treatment not carried out for other reasons (principal)

== ENCOUNTER 2023-02-26 17:38 | Observation (INO) | payer MEDICARE ==
[2023-02-26] MEDS ORDERED: ONDA-83 PO (18:21)
[2023-02-26] MEDS ORDERED: BUME2TAB3 PO (18:21)
[2023-02-26] MEDS ORDERED: TRAN1DIS4 TD (18:21)
[2023-02-26] MEDS ORDERED: MORP1SOL5 PO (18:21)
[2023-02-26] MEDS ORDERED: ATIV1TAB10 PO (18:21)
[2023-02-26] MEDS ORDERED: HOME MED LIST COMPLETE! XX SCH (18:25)
[2023-02-26] MEDS ORDERED: ONDANSETRON 4MG ORAL DISINTEGRATING TAB PO PRN (19:05)
[2023-02-26] MEDS ORDERED: ACETAMINOPHEN 500 MG TAB PO PRN (19:05)
[2023-02-26] MEDS ORDERED: ACETAMINOPHEN 650MG SUPP PR PRN (19:05)
[2023-02-26] MEDS ORDERED: SCOPOLAMINE 1MG TRANSDERMAL PATCH TOP PRN (19:05)
[2023-02-26] MEDS ORDERED: PERCOCET 5MG/325MG TAB PO PRN (19:05)
[2023-02-26] MEDS ORDERED: FLEET ENEMA PR PRN (19:05)
[2023-02-26] MEDS ORDERED: BISACODYL 10MG SUPP PR PRN (19:05)
[2023-02-26] MEDS: MORPHINE 10MG/0.5ML ORAL CONCENTRATE SOLUTION U/D SL PRN (22:33)
[2023-02-26] MEDS: LIDOCAINE 5% (LIDODERM) PATCH TD SCH (22:33)
[2023-02-27] MEDS: ALBUTEROL 90 MCG/ACT 8GM HFA INHALER INH PRN ×3 (07:03→20:18)
[2023-02-27] MEDS: BUMETANIDE 1 MG TAB PO SCH (08:56)
[2023-02-27] MEDS: MORPHINE 10MG/0.5ML ORAL CONCENTRATE SOLUTION U/D SL PRN (21:19)
[2023-02-27] MEDS: LIDOCAINE 5% (LIDODERM) PATCH TD SCH (21:20)
[2023-02-27] MEDS: LORazepam 0.5 MG TAB PO PRN (21:20)
[2023-02-28] MEDS: LORazepam 0.5 MG TAB PO PRN (04:28)
[2023-02-28] MEDS: BUMETANIDE 1 MG TAB PO SCH (09:00)
[2023-02-28] MEDS: ALBUTEROL 90 MCG/ACT 8GM HFA INHALER INH PRN (09:16)
[2023-02-28] MEDS ORDERED: ONDA4TAB6 PO (11:04)
[2023-02-28] MEDS ORDERED: PROA1AER2 INH (11:04)
[2023-02-28] MEDS ORDERED: MORP1SOL5 PO (11:04)
[2023-02-28] MEDS ORDERED: ATIV1TAB10 PO (11:04)
[2023-02-28] MEDS ORDERED: BUME2TAB3 PO (11:04)
[2023-02-28] MEDS ORDERED: HYOS125TA PO (11:04)
== END 2023-02-28 11:48 | disposition hospice, inpatient (51) ==
LOC: M ED 17:38 → INTOOBSV 20:40 → M ED INP 20:40 → M MSPAV 21:03
PROVIDERS: ADMIT Internal Medicine; ATTEND Internal Medicine
DX: Z51.5 Encounter for palliative care (principal); G93.41 Metabolic encephalopathy; J96.11 Chronic respiratory failure with hypoxia; I48.91 Unspecified atrial fibrillation; I50.30 Unspecified diastolic (congestive) heart failure; E87.6 Hypokalemia; E83.42 Hypomagnesemia; Z88.0 Allergy status to penicillin; Z79.899 Other long term (current) drug therapy; K21.9 Gastro-esophageal reflux disease without esophagitis; L89.151 Pressure ulcer of sacral region, stage 1; I11.9 Hypertensive heart disease without heart failure; E78.5 Hyperlipidemia, unspecified; F41.9 Anxiety disorder, unspecified; F32.A Depression, unspecified
CPT/HCPCS: 94640; 99283; G0378